=== PATIENT | female | born 1970 | race African-American/Black ===

== ENCOUNTER 2023-08-01 10:03 | Outpatient (OUT) | payer MEDICAID, SELFPAY ==
--- NOTE | 2023-08-01 10:13 | ECG_ITS ---
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
--- NOTE | 2023-08-01 10:59 | P.GSHP_ITS ---
History of Present Illness History of Present Illness Chief complaint: urethral stricture Narrative: Patient presents for preadmission testing. The patient reports a long history of urethral stricture with several dilations in the past. The patient states she had one procedure done without anesthesia and it was extremely painful and she would like anesthesia for this upcoming procedure. After questioning, the patient admits to a history of hypertension, she took herself off of her blood pressure medication approximately one year ago and currently does not have a primary care provider. The patient states she has nocturia but no other urinary complaints. Review of Systems ROS Narrative REVIEW OF SYSTEMS: Negative except as stated in HPI, ten or more systems reviewed. Constitutional: No fever , chills, weakness ENT: No sore throat or epistaxis Cardiovascular: No edema, chest pain, palpitations, or activity intolerance Respiratory: No shortness of breath, cough, or wheezing Musculoskeletal: No joint pain or swelling Gastrointestinal: No abdominal pain, constipation, diarrhea, or vomiting Genitourinary: No dysuria or hematuria Neurological: No numbness, tingling, weakness, or headache Psychiatric: No mood changes PFSH PFSH Medical History (Updated 08/01/23 @ 10:37 by Audrey James NP) Hypertension ?I10 - Essential (primary) hypertension (ICD-10) Urethral stricture due to and not concurrent with procedure Surgical History (Updated 08/01/23 @ 10:37 by Audrey James NP) History of section ?Z98.891 - History of uterine scar from previous surgery (ICD-10) History of cholecystectomy ?Z90.49 - Acquired absence of other specified parts of digestive tract (ICD- 10) History of hysterectomy ?Z90.710 - Acquired absence of both cervix and uterus (ICD-10) History of tubal ligation ?Z98.51 - Tubal ligation status (ICD-10) S/P cystourethroscopy with dilation of urethral stricture ?Z98.890 - Other specified postprocedural states (ICD-10) Family History (Updated 08/01/23 @ 10:37 by Audrey James NP) Other Family history of gastric cancer Family history of hypertension Family history of lung cancer Social History (Updated 08/01/23 @ 10:28 by Audrey James NP) Within the past year, how often did you have a drink containing alcohol: monthly or less Smoking status: Never smoker Highest level of school completed/degree received: high school graduate Meds Home Medications and Allergies Allergies Allergy/AdvReac Type Severity Reaction Status Date / Time No Known Drug Allergies Allergy Verified 08/01/23 10:25 Exam Narrative Exam Narrative: Constitutional: Awake, alert, comfortable, well-appearing, nontoxic, interactive, vital signs as charted Head: Normocephalic, atraumatic Neck: Supple, normal appearance, normal range of motion, no meningeal signs, no lymphadenopathy Respiratory: No respiratory distress, breath sounds clear Cardiovascular: Regular rate and rhythm, strong and regular heart tones Abdomen: Nontender, normal bowel sounds, soft, no CVA tenderness Musculoskeletal: Normal gait, no swelling or edema Skin: No rashes or induration, no lesions, only visible skin inspected Neuro: No neurological deficits, normal sensation Psychiatric: Oriented ?3, normal affect Assessment and Plan Assessment and Plan (1) Urethral stricture due to and not concurrent with procedure: (2) Hypertension: Plan At this time the patient is scheduled for a cystoscopy/urethral dilation with Dr. Vu on 08/10/2023. The patient has a severely elevated blood pressure here today in our office, her EKG is within normal limits, and she is not experiencing any symptoms or complaints. She states I feel fine. I stressed the importance of blood pressure control with the patient. I advised that she should call her insurance company to find a primary care provider as soon as possible. I advised her that she must start taking blood pressure medication and have medical clearance prior to her procedure. The patient verbalized understanding. This was also discussed with Katherine at Dr. Vu office.
[2023-08-01 11:01] LABS: Basophils Percent Auto 0.2 % (0.2-2.0); Eosinophils Percent Auto 0.4 % (0.9-7.0); Hematocrit 38.7 % (36.0-48.0); Hemoglobin 12.9 g/dL (12.0-16.0); Immature Granulocytes Abs Auto 0.01 10^3/uL (0.00-0.03); Immature Granulocytes Pct Auto 0.2 % (0.0-0.5); Lymphocytes Absolute Auto 1.5 10^3/uL (1.2-3.8); Mean Corpuscular HGB Conc 33.3 g/dL (29.9-35.2); Mean Corpuscular Hemoglobin 31.1 pg (26.7-34.0); Mean Corpuscular Volume 93.3 fL (81.0-99.0); Monocytes Absolute Auto 0.2 10^3/uL (0.3-0.8); Monocytes Percent Auto 5.3 % (1.7-12.0); Neutrophils Absolute Auto 2.7 10^3/uL (1.4-6.5); Neutrophils Percent Auto 60.9 % (43.0-75.0); Platelet Count 199 10^3/uL (150-450); Red Blood Count 4.15 10^6/uL (4.20-5.40); Red Cell Distribution Width 13.2 % (11.0-15.0); White Blood Count 4.5 10^3/uL (4.0-11.0)
[2023-08-01 11:13] LABS: Anion Gap 11.4; Carbon Dioxide 32.9 mmol/L (21.0-32.0); Chloride 102 mmol/L (98-107); Estimated GFR (African America 57 (>=60); Estimated GFR (Non-African Ame 47 (>=60); Glucose 79 mg/dL (74-106); Potassium 3.3 mmol/L (3.5-5.1); Sodium 143 mmol/L (136-145)
== END 2023-08-01 10:04 | disposition home or self-care (01) ==
LOC: PST 10:06
PROVIDERS: PCP Urology; Visit Provider Urology
DX: Z01.812 Encounter for preprocedural laboratory examination (principal)
CPT/HCPCS: 80048; 85025; 93005; G0463

== ENCOUNTER 2023-08-10 07:26 | Day surgery (SDC) | payer MEDICAID, SELFPAY ==
[2023-08-01 10:40] VITALS: BP 184/110; PULSE 86; RESP 16; TEMP 36.3; O2SAT 98; BMI 27.0
[2023-08-10 08:08] VITALS: BP 165/109; PULSE 107; RESP 20; TEMP 36.1; O2SAT 100; BMI 26.9
[2023-08-10] MEDS: LACTATED RINGER'S SOLUTION 1,000 ML 50 ML IV (08:17)
[2023-08-10] MEDS: CEFAZOLIN SODIUM/DEXTROSE,ISO 1 GM/50 ML IV.SOLN IV (08:18)
--- NOTE | 2023-08-10 09:09 | PM.URSON ---
Urology Surgery Operative Note Operative Note Procedure Date: 08/10/23 Time Out Performed: yes Pre-op Diagnosis: urethral stenosis and atrophic vaginitis Post-op Diagnosis: same as pre-op Procedures performed: #1. Urethral dilation with [place] sounds from 20 Burmese to 32 Burmese. #2. Cystoscopy. Anesthesia: MAC and local Primary Surgeon: Derrick Vu Complications: none Estimated blood loss (mL): 5 Findings: mild atrophic vaginitis. Urethral stenosis. Specimens: none Indications for Procedures: this lady had rather severe urethral stenosis and severe atrophic vaginitis for which she was dilated and started on estrogen cream. This was done back in February 2022. She then had a subsequent dilation in November 2022. She now presents for cystoscopy and urethral dilation under Mac. She has signed an informed consent for these procedures after risks were explained. Detailed description of Procedure: The patient was brought to the operating room and placed on the operating room table in the supine position. SCDs were placed on the lower extremities and turned on and functioning during the entire case. Timeout was done by all parties in the room. We all agreed upon the patient's identification and the planned procedures for this patient. Mac anesthesia was then administered. The patient was then repositioned into the modified dorsal lithotomy position. All pressure points were satisfactorily padded. Genitalia were sterilely prepped and draped in usual fashion. I started by dilating her urethra with [place] sounds from 20 Burmese up to 32 Burmese. The urethra bled a little bit. Moderate atrophic vaginitis was noted. I then passed a 22 Burmese Olympus cystoscope per urethra and into the bladder. Panendoscopy in the bladder showed no evidence of any tumors stones or mucosal lesions. The urethra. Unremarkable endoscopically. The bladder was drained of its contents and the scope was then removed. She was then transferred to a [facility] bed and wheeled to PACU in stable condition.
[2023-08-10 09:13] VITALS: BP 116/80; PULSE 92; RESP 16; O2SAT 99
[2023-08-10 09:30] VITALS: BP 121/90; PULSE 82; RESP 16
[2023-08-10 09:49] VITALS: BP 167/104; PULSE 80; RESP 16; O2SAT 100
== END 2023-08-10 09:49 | disposition home or self-care (01) ==
PROVIDERS: PCP Nurse Practitioner; Visit Provider Urology
PROC: (CPT 910; principal; 2023-08-10 08:30)
DX: N35.92 Unspecified urethral stricture, female (principal); F41.9 Anxiety disorder, unspecified; I10 Essential (primary) hypertension; Z90.49 Acquired absence of other specified parts of digestive tract; Z90.710 Acquired absence of both cervix and uterus; Z98.51 Tubal ligation status; R35.1 Nocturia; N95.2 Postmenopausal atrophic vaginitis
CPT/HCPCS: 52281; 36415; J2704

== ENCOUNTER 2024-01-15 14:14 | Outpatient (OUT) | payer MEDICAID, SELFPAY ==
--- NOTE | 2024-01-15 14:19 | XR_ITS ---
The [address] [address] Patient Name: BALWINDER HOWARD MRN: [id number] date: 1970 Sex: F Assigned Patient Location: [facility] Current Patient Location: [facility] Accession/Order Number: [id number] Exam Date: 01/15/2024 14:25 Report Date: 01/15/2024 15:49 At the request of: HARRIET MANCERA Procedure: XR lumbar spine min 4V EXAMINATION: XR lumbar spine min 4V HISTORY: low back pain with left sciatica M54.42 COMPARISON: No relevant comparison available. FINDINGS: BONES: Normal alignment with no acute fracture or spondylolisthesis. Mild spondylosis and mild to moderate facet osteoarthropathy significant at L5-S1 DISC SPACES: Normal. No significant disc height narrowing, subluxation, or endplate abnormality. PARASPINOUS: Negative. No paraspinous abnormality is seen. OTHER: Negative. XR/XR lumbar spine min 4V IMPRESSION: Diffuse degenerative changes most significant at L5-S1 Electronically authenticated by: RUFUS ZHAO Date: 01/15/2024 15:49
== END 2024-01-15 14:15 | disposition home or self-care (01) ==
PROVIDERS: PCP Nurse Practitioner; Visit Provider Nurse Practitioner
DX: M54.42 Lumbago with sciatica, left side (principal); M51.36 Other intervertebral disc degeneration, lumbar region
CPT/HCPCS: 72110

== ENCOUNTER 2024-06-28 14:39 | Emergency (ER) | payer MEDICAID, SELFPAY ==
--- OUTSIDE RECORDS SUMMARY | 2024-06-28 14:44 | XMS_ITS | CCD ---
Author Organization [facility] Care Team Providers Care Paraffiner Name Role Phone Mickey BARRIGA Primary Care Physician PAVEL, DR RUFUS Garay Consulting Unavailable MISC, DR LANE Primary Care Unavailable ESTELA, DR AREVALO Attending Unavailable ESTELA, DR AREVALO Admitting Unavailable ESTELA, DR AREVALO Consulting Unavailable REQUEST, DR HERNANDEZ LISTED Primary Care Unavaila raman VU, DR LAY Consulting Unavailable JANIYA, DR LAY Attending Unavailable JANIYA, DR LAY Admitting Unavailable PAVEL, DR RUFUS Garay Consulting Unavailable HAY, DR CORTES Consulting Unavailable HAY, DR CORTES Attending Unavailable HAY, DR CORTES Admitting Unavailable MISC, DR LANE Primary Care Unavailable JANIYA, DR LAY Consulting Unavailable REQUEST, DR HERNANDEZ LISTED Primary Care Unavaila ble JANIYA, DR LAY Attending Unavailable JANIYA, DR LAY Admitting Unavailable ESTELA, DR AREVALO Consulting Unavailable REQUEST, DR HERNANDEZ LISTED Primary Care Unavaila ble ESTELA, DR AREVALO Attending Unavailable ESTELA, DR AREVALO Admitting Unavailable ESTELA, DR AREVALO Consulting Unavailable REQUEST, DR HERNANDEZ LISTED Primary Care Unavaila ble ESTELA, DR AREVALO Attending Unavailable ESTELA, DR AREVALO Admitting Unavailable JANIYA, DR LAY Consulting Unavailable REQUEST, NONE LISTED Primary Care Unavaila ble JANIYA, DR LAY Attending Unavailable JANIYA, DR LAY Admitting Unavailable CORRINE, LOUIS Consulting Unavailable JANIYA, DR LAY Consulting Unavailable REQUEST, DR HERNANDEZ LISTED Referring Unavaila ble MISC, DR LANE Primary Care Unavailable ESTELA, DR AREVALO Attending Unavailable ESTELA, DR AREVALO Admitting Unavailable ESTELA, DR AREVALO Consulting Unavailable JOHN AVINA Consulting Unavailable NAKUL MORILLO Consulting Unavailable MISC, DR LANE Primary Care Unavailable ESTELA, DR AREVALO Attending Unavailable ESTELA, DR AREVALO Admitting Unavailable MISC, DR LANE Primary Care Unavailable JANIYA, DR LAY Attending Unavailable JANIYA, DR LAY Admitting Unavailable Anamaria Pak Primary Care Physician Anamaria Pak Attending Unavailable Mellisa, Anamaria Jung Attending Unavailable Mellisa, Anamaria Jung Attending Unavailable Mellisa, Anamaria Jung Attending Unavailable Mellisa, Anamaria Jung Attending Unavailable Mellisa, Anamaria Jung Attending Unavailable Derrick VU Attending Unavailable Adrian Fuentes Attending Unavaila ble NONE, XXXX Referring Unavailable NONE, XXXX Referring Unavailable Adrian Fuentes Attending Unavaila ble Celestino Paulino Attending Unavailable NONE, XXXX Referring Unavailable Adrian Fuentes Admitting Unavaila Brenton Stevens Consulting Unavailable Adrian Fuentes Referring Unavaila Adrian Santillan Attending Unavaila Brenton Stevens Consulting Unavailable Brenton WILKS Consulting Unavailable Derrick VU Attending Unavailable Allergies Allergy Classification Reported Allergen(s) Allergy Type Date of Onset Reaction(s) Facility (1 source) No Known Medication Allergies; Translations: [No Known Medication Allergies] Propensity to adverse reactions (disorder) [facility] Repository Medications Current Medications Medication Drug Class(es) Dates Sig (Normalized) Sig (Original) amLODIPine 10 mg oral tablet (4 sources) Dihydropyridine Calcium Channel Balbina Start: 09-14-2023 End: 09-08-2024 take 1 tablet by mouth once daily amLODIPine 10 mg Tab 10 mg = 1 tab(s), Oral, Daily, X 90 day(s), # 90 tab(s), Refills(s) 3, Pharmacy: [facility] #[id number], 160, cm, 09/14/23 10:53:00 EST, Height/Length Dosing, 70.3, kg, 09/14/23 10:53:00 EST, Weight Dosing Start Date: 09/14/23 Stop Date: 09/08/24 Status: Ordered Start: 08-03-2023 take 1 tablet by terence th once daily amLODIPine 5 mg Tab 5 mg = 1 tab(s), Oral, Daily, # 30 tab(s), Refills(s) 1, Pharmacy: [facility] #[id number], 160, cm, 08/03/23 14:08:00 EST, Height/Length Dosing, 70, kg, 08/03/23 14:08:00 EST, Weight Dosing Start Date: 08/03/23 Status: Ordered bisoprolol fumarate 10 mg / hydroCHLOROthiazide 6.25 mg oral tablet (3 sources) Thiazide Diuretic, beta-Adrenergic Balbina Start: 09-14-2023 End: 09-08-2024 take 1 tablet by mouth once daily bisoprolol-hydrochlorothiazide 10 mg-6.25 mg Tab 1 tab(s), Oral, Daily for 90 day(s), 90 tab(s), Refill(s) 3, [facility] #[id number], 160, cm, 09/14/23 10:53:00 EST, Height/Length Dosing, 70.3, kg, 09/14/23 10:53:00 EST, Weight Dosing Start Date: 09/14/23 Stop Date: 09/08/24 Status: Ordered cyclobenzaprine hydrochloride 10 mg oral tablet (1 source) Muscle Relaxant Start: 01-16-2024 take 1 tablet by mouth at bedtime as needed for muscle spasms cyclobenzaprine 10 mg Tab 10 mg = 1 tab(s), Oral, Bedtime, PRN for spasm, # 30 tab(s), Refills(s) 0, Pharmacy: [facility] #[id number], 160, cm, 01/15/24 15:02:00 EDT, Height/Length Dosing, 72.5, kg, 01/15/24 15:02:00 EDT, Weight Dosing Start Date: 01/16/24 Status: Ordered estradiol 0.1 mg/ml vaginal cream (6 sources) Estrogen Start: 10-04-2023 Estrace 0.1 mg/g Cream 1 gm, Vaginal, MonFri, 42.5 gm, Refill(s) 6, At bedtime, insert 1gm vaginally then apply excess around urethra 2x/week, [facility] #[id number], 160, cm, 09/14/23 10:53:00 EST, Height/Length Dosing, 70.3, kg, 09/14/23 10:53:00 EST, Weight Dosing Start Date: 10/04/23 Status: Ordered Start: 09-05-2022 Estrace 0.1 mg /g Cream 1 gm, Vaginal, MonFri, 42.5 gm, Refill(s) 3, At bedtime, insert 1gm vaginally then apply excess around urethra 2x/week, [facility] #[id number], 160, cm, 09/05/22 11:23:00 EST, Height/Length Dosing, 67.5, kg, 09/05/22 11:23:00 EST, Weight Dosing Start Date: 09/05/22 Status: Ordered meloxicam 15 mg oral tablet (1 source) Nonsteroidal Anti-inflammatory Drug Start: 01-15-2024 take 1 tablet by mouth once daily meloxicam 15 mg Tab 15 mg = 1 tab(s), Oral, Daily, # 30 tab(s), Refills(s) 0, Pharmacy: [facility] #[id number], 160, cm, 01/15/24 15:02:00 EDT, Height/Length Dosing, 72.5, kg, 01/15/24 15:02:00 EDT, Weight Dosing Start Date: 01/15/24 Status: Ordered Metoprolol (2 sources) beta-Adrenergic Balbina Start: 09-05-2022 metoprolol Refills(s) 0 Start Date: 09/05/22 Status: Ordered Completed/Discontinued Medications Medication Drug Class(es) Dates Sig (Normalized) Sig (Original) automatic blood pressure monitor (4 sources) Start: 08-03-2023 automatic blood pressure monitor automatic blood pressure monitor, See Instructions, 1 EA, 0, check BP 1-2 hours after taking medication, [facility] #[id number], Supply, 160, cm, 08/03/23 14:08:00 EST, Height/Length Dosing, 70, kg, 08/03/23 14:08:00 EST, Weight Dosing Start Date: 08/03/23 Status: Ordered ciprofloxacin 500 mg oral tablet (1 source) Quinolone Antimicrobial Start: 09-05-2022 Cipro 500 mg Tab 500 mg = 1 tab(s), Oral, As Directed, Patient to take 1 tab the day before procedure and the 2nd tab the day of procedure once completed, # 2 tab(s), Refills(s) 0, Pharmacy: [facility] #[id number], 160, cm, 09/05/22 11:23:00 EST, Height/Length Dosing, 67.5,... Start Date: 09/05/22 Status: Ordered Problems Active Problems Problem Classification Problem Date Documented Date Episodic/Chronic Anxiety disorders (7 sources) Anxiety; Translations: [Anxiety disorder, unspecified] Onset: 03-21-2022 09-05-2022 Chronic Calculus of urinary tract (4 sources) Calculus of kidney; Translations: [CALCULUS OF KIDNEY] Onset: 09-03-2022 Episodic Cardiac dysrhythmias (4 sources) Palpitations; Translations: [Palpitations] Onset: 03-01-2024 08-31-2023 Episodic Essential hypertension (11 sources) Hypertensive disorder; Translations: [Essential (primary) hypertension] Onset: 09-15-2022 09-05-2022 Chronic Inflammatory diseases of female pelvic organs (1 source) Chronic salpingitis; Translations: [CHRONIC SALPINGITIS] Onset: 03-21-2022 Chronic Menopausal disorders (2 sources) Postmenopausal atrophic vaginitis; Translations: [Menopausal and female climacteric states] Onset: 03-21-2022 Chronic Other aftercare (1 source) Other custodial (current) drug therapy; Translations: [OTH SENIOR LIVING CURRENT DRUG THERAPY] Onset: 09-15-2022 Episodic Other diseases of bladder and urethra (2 sources) Male urethral stricture; Translations: [Unspecified urethral stricture, male, unspecified site] Onset: 09-05-2022 Episodic Other diseases of bladder and urethra (6 sources) Urethral stricture 09-05-2022 Episodic Other diseases of bladder and urethra (5 sources) Unspecified urethral stricture, female; Translations: [UNSP URETHRAL STRICTURE FEMALE] Onset: 09-08-2022 Episodic Other nutritional; endocrine; and metabolic disorders (2 sources) Overweight in adulthood with body mass index of 25 or more but less than 30 12-21-2023 Episodic Residual codes; unclassified (1 source) Acquired absence of other specified parts of digestive tract; Translations: [ACQ ABSENCE OTH PART DIGESTV TRACT] Onset: 09-15-2022 Episodic Residual codes; unclassified (1 source) Acquired absence of both cervix and uterus; Translations: [ACQUIRED ABSENCE BOTH CERVIX AND UTERUS] Onset: 09-15-2022 Episodic Spondylosis; intervertebral disc disorders; other back problems (3 sources) Lumbago with sciatica 09-14-2023 Episodic Unclassified (1 source) CONTACT W/AND (SUSP) EXPOS COVID-19; Translations: [CONTACT W/AND (SUSP) EXPOS COVID-19] Onset: 09-11-2022 Viral infection (1 source) COVID-19; Translations: [COVID-19] Onset: 09-28-2021 Past or Other Problems Problem Classification Problem Date Documented Da te Episodic/Chronic Abdominal pain (5 sources) Pelvic and perineal pain; Translations: [PELVIC AND PERINEAL PAIN] Onset: 02-17-2022 Episodic Fever of unknown origin (3 sources) Fever, unspecified; Translations: [FEVER UNSPECIFIED] Onset: 09-26-2021 Episodic Other gastrointestinal disorders (1 source) Peritoneal adhesions (postprocedural) (postinfection); Translations: [PERITONEAL ADHES POSTPROC POSTINF] Onset: 03-21-2022 Episodic Ovarian cyst (1 source) Unspecified ovarian cyst, left side; Translations: [UNSPECIFIED OVARIAN CYST LEFT SIDE] Onset: 12-30-2021 Episodic Results Test Name Value Interpretation Reference Range [facility] aleshia Physician Orderon 03-04-2024 Physician Order [id number]# 1.00TIFF Normal [facility] Consent for Treatmenton Consent for Treatment [id number] .00TIFF Normal [facility] Heart and Vascular Office/Cl inic Noteon 03-01-2024 Heart and Vascular Office/Clinic Note Chief Complaint 2 month f/u palpitations History of Present Illness The patient is a 53-year-old female with past medical history of hypertension, who presents for a follow-up appointment. She was seen by Dr. Fuentes due to heart palpitations. Her prior Holter monitor showed no evidence of cardiac arrhythmias. The plan was to obtain a 14 days event monitor, however, the patient has not had it. Her prior cardiac workup also included a transthoracic echocardiogram which showed no evidence of significant structural heart disease, mild pulmonary hypertension, normal LVEF. She did have an exercise stress test, which showed no evidence of ischemia to the extent of the physical exertion, however was submaximal She continues to be bothered by occasional palpitations, perhaps once a week, during the nighttime. Reports no chest pain or shortness of breath, dizziness or lightheadedness. Review of Systems ROS - Provider Constitutional: no fever, no chills, no sweats, no weakness Respiratory: no shortness of breath, no cough Cardiovascular: no chest pain positive for palpitations Neuro: no dizziness. no loss of consciousness Physical Exam Vitals & Measurements HR: 72(Peripheral) BP: 136/80 HT: 63 in HT: 160 cm WT: 71.5 kg WT: 157.3 lb BMI: 27.93 General: alert, no acute distress Neck: Supple, noJVD nocarotid bruit Cardiovascular: regular rate and rhythm, no murmur normal peripheral perfusion Respiratory: Lungs CTAB, respirations non labored Extremities: no edema left lower extremity. no edema right lower extremity Neurological: oriented x 4, LOC appropriate for age, speech normal Skin: Warm, dry, intact- no rash or concerning lesions Assessment/Plan 1. Heart palpitations (R00.2: Palpitations) I am going to obtain a 14 days event recorder, as was planned before. Follow-up No qualifying data available As needed Problem List/Past Medical History Ongoing Adult BMI 27.0-27.9 kg/sq m Adult BMI 28.0-28.9 kg/sq m Anxiety Heart palpitations Hypertension Low back pain with left-sided sciatica Urethral meatal stenosis Historical Hypertension Procedure/Surgical History Cystourethroscopy with dilation of urethral stricture (02/28/2022), Laparoscopic oophorectomy (02/28/2022), delivery, Cholecystectomy, Hysterectomy, Tubal ligation. Medications amLODIPine 10 mg Tab, 10 mg= 1 tab(s), Oral, Daily, 3 refills automatic blood pressure monitor, See Instructions bisoprolol-hydrochlor othiazide 10 mg-6.25 mg Tab, 1 tab(s), Oral, Daily, 3 refills cyclobenzaprine 10 mg Tab, 10 mg= 1 tab(s), Oral, Bedtime, PRN Estrace 0.1 mg/g Cream, 1 gm, Vaginal, MonFri, 6 refills meloxicam 15 mg Tab, 15 mg= 1 tab(s), Oral, Daily Allergies No Known Medication Allergies Social History Tobacco Never (less than 100 in lifetime) Tobacco Use:. Never Smokeless Tobacco Use:. Household tobacco concerns: No., 03/01/2024 Family History Hypertension: Mother. Normal [facility] Comment on above: Result Comment: Elec tronically Signed By: Lora CASTELLANO, Celestino Smith\.br\Date and Time Signed: 03/01/24 13:14 EDT Ambulatory Visit Summaryon 0 01-15-2024 Ambulatory Visit Summary JENNY FRANCO :1970 Visit Date:01/15/2024 Ambulatory Visit Instructions Your Diagnosis Low back pain with left-sided sciatica Your Care Team Attending Physician - Anamaria Kelley Primary Care Physician - Anamaria Kelley This Is Your Medications List [facility] Prescription (automatic blood pressure monitor) amlodipine (amLODIPine 10 mg Tab) bisoprolol-hydrochlor othiazide (bisoprolol-hydrochlo rothiazide 10 mg-6.25 mg Tab) estradiol topical (Estrace 0.1 mg/g Cream) meloxicam (meloxicam 15 mg Tab) methylPREDNISolone (Medrol 4 mg Tab) Procedures Performed Cystourethroscopy with dilation of urethral stricture (02/28/2022), Laparoscopic oophorectomy (02/28/2022), delivery, Cholecystectomy, Hysterectomy, Tubal ligation. Discharge Vitals Heart Rate (Peripheral) 60 Respiratory Rate 18 Blood Pressure 132/80 Height 160.0 cm Height 63 in Weight 72.5 kg Weight 159.5 lb BMI 28.32 What to do next Scheduled Follow-Up Appointments 2023 3:00 PM EDT With: Where: [facility] Monday 1:00 PM EDT With: Celestino Paulino MD Where: [facility] [place] Medications What How Much When Why Instructions New meloxicam (meloxicam 15 mg Tab) 1 Tablets By Mouth Every day Low back pain with left-sided sciatica Pickup at [facility] #[id number] New methylPREDNISolone (Medrol 4 mg Tab) 1 Packets By Mouth As Directed Low back pain with left-sided sciatica Duration: 6 Days as directed on package labeling Pickup at [facility] #[id number] Unchanged amlodipine (amLODIPine 10 mg Tab) 1 Tablets By Mouth Every day Hypertension Heart palpitations BMI 27.0-27.9,adult Non-smoker Duration: 90 Days Unchanged bisoprolol-hydrochlor othiazide (bisoprolol-hydrochlo rothiazide 10 mg-6.25 mg Tab) 1 Tablets By Mouth Every day Hypertension Heart palpitations BMI 27.0-27.9,adult Non-smoker Duration: 90 Days Unchanged estradiol topical (Estrace 0.1 mg/ g Cream) 1 Gram Vaginal Monday & Monday At bedtime, insert 1gm vaginally then apply excess around urethra 2x/ week Unchanged Misc Prescription (automatic blood pressure monitor) See instructions BMI 27.0-27.9,adult Non-smoker check BP 1-2 hours after taking medication Pharmacy Information [facility] #[id number]: [address], [place] [id number] [phone] Allergies No Known Medication Allergies Problems Ongoing - Any problem that you are currently receiving treatment for. Adult BMI 27.0-27.9 kg/sq m Anxiety Heart palpitations Hypertension Low back pain with left-sided sciatica Urethral meatal stenosis Historical - Any problem that you are no longer receiving treatment for. Hypertension Patient Survey You may receive a survey via text or e-mail asking about your office visit. Please share your experience with us by completing your survey. We appreciate your feedback and thank you for choosing us for your care. Normal [facility] Family Medicine Office/Clini c Noteon 01-15-2024 Family Medicine Office/Clinic Note HPI Staff Jenny is a 53 year old female presenting for 3 week follow up NANCY 12/21/23 low back pain with left side sciatica-started meloxicam, medrol dose pack, x-ray was ordered Pt states she never picked up any meloxicam or Medrol dose back states pharmacy never contacted her. Pt had x-ray done this afternoon. History of Present Illness pt presents today for follow up on back pain. just had x ray done today Review of Systems PHQ Score Initial Depression Screen Score: 0 SCORE Physical Exam Vitals & Measurements HR: 60(Peripheral) RR: 18 BP: 132/80 SpO2: 98% HT: 63 in HT: 160.0 cm WT: 72.5 kg WT: 159.5 lb BMI: 28.32 General: alert, no acute distress ENMT: oral mucosa moist, no pharyngeal erythema or exudate Cardiovascular: regular rate and rhythm, normal peripheral perfusion Respiratory: Lungs CTA, respirations non labored Extremities: no deformity, no trauma Neurological: oriented x 4, LOC appropriate for age, CN II-XII intact, motor strength equal & normal bilaterally, speech normal walking with limp due to pain, limited ROM Assessment/Plan 1. Low back pain with left-sided sciatica (M54.42: Lumbago with sciatica, left side) pt will pick meds up today. x ray done at [facility] today. will call her with those results. Will order MRI if necessary for further evaluation. may also consider pain management RTC as needed Ordered: cyclobenzaprine, 7.5 mg = 1 tab(s), Oral, Bedtime, PRN for spasm, # 30 tab(s), Refills(s) 0, Pharmacy: [facility] #[id number], 160, cm, 01/15/24 15:02:00 EDT, Height/Length Dosing, 72.5, kg, 01/15/24 15:02:00 EDT, Weight Dosing meloxicam, 15 mg = 1 tab(s), Oral, Daily, # 30 tab(s), Refills(s) 0, Pharmacy: [facility] #[id number], 160, cm, 01/15/24 15:02:00 EDT, Height/Length Dosing, 72.5, kg, 01/15/24 15:02:00 EDT, Weight Dosing methylPREDNISolone, = 1 packet(s), Oral, As Directed, as directed on package labeling, X 6 day(s), # 21 tab(s), Refills(s) 0, Pharmacy: [facility] #[id number], 160, cm, 01/15/24 15:02:00 EDT, Height/Length Dosing, 72.5, kg, 01/15/24 15:02:00 EDT, Weight Dosing 2. Adult BMI 28.0-28.9 kg/sq m (Z68.28: Body mass index [BMI] 28.0-28.9, adult) BMI education complete Follow-up No qualifying data available Problem List/Past Medical History Ongoing Adult BMI 27.0-27.9 kg/sq m Adult BMI 28.0-28.9 kg/sq m Anxiety Heart palpitations Hypertension Low back pain with left-sided sciatica Urethral meatal stenosis Historical Hypertension Procedure/Surgical History Cystourethroscopy with dilation of urethral stricture (02/28/2022), Laparoscopic oophorectomy (02/28/2022), delivery, Cholecystectomy, Hysterectomy, Tubal ligation. Medications amLODIPine 10 mg Tab, 10 mg= 1 tab(s), Oral, Daily, 3 refills automatic blood pressure monitor, See Instructions bisoprolol-hydrochlor othiazide 10 mg-6.25 mg Tab, 1 tab(s), Oral, Daily, 3 refills cyclobenzaprine 7.5 mg oral tablet, 7.5 mg= 1 tab(s), Oral, Bedtime, PRN Estrace 0.1 mg/g Cream, 1 gm, Vaginal, MonFri, 6 refills Medrol 4 mg Tab, 1 packet(s), Oral, As Directed meloxicam 15 mg Tab, 15 mg= 1 tab(s), Oral, Daily Allergies No Known Medication Allergies Social History Tobacco Never (less than 100 in lifetime) Tobacco Use:. Never Smokeless Tobacco Use:. Household tobacco concerns: No., 01/15/2024 Family History Hypertension: Mother. Normal [facility] Comment on above: Result Comment: Elec tronically Signed By: Anamaria Kelley\.br\Date and Time Signed: 01/15/24 15:24 EDT Ambulatory Visit Summaryon 0 12-21-2023 Ambulatory Visit Summary JENNY FRANCO :1970 Visit Date:12/21/2023 Ambulatory Visit Instructions Your Diagnosis Low back pain with left-sided sciatica Your Care Team Attending Physician - Anamaria Kelley Primary Care Physician - Anamaria Kelley This Is Your Medications List [facility] Prescription (automatic blood pressure monitor) amlodipine (amLODIPine 10 mg Tab) bisoprolol-hydrochlor othiazide (bisoprolol-hydrochlo rothiazide 10 mg-6.25 mg Tab) estradiol topical (Estrace 0.1 mg/g Cream) Procedures Performed Cystourethroscopy with dilation of urethral stricture (02/28/2022), Laparoscopic oophorectomy (02/28/2022), delivery, Cholecystectomy, Hysterectomy, Tubal ligation. Discharge Vitals Heart Rate (Peripheral) 73 Blood Pressure 150/80 Height 160 cm Height 63 in Weight 70.8 kg Weight 155.76 lb BMI 27.66 What to do next Scheduled Follow-Up Appointments Monday 10:15 AM EDT With: Alfredo CASTELLANO, Adrian D. Where: [facility] [place] 2023 10:00 AM EDT With: Anamaria Kelley Where: [facility] Family Medicine Normal [facility] Family Medicine Office/Clini c Noteon 12-21-2023 Family Medicine Office/Clinic Note Chief Complaint follow up blood pressure HPI Staff Jenny is a 53 year old female presenting for 3 month follow up HTN Patient is here for follow up on hypertension. NANCY ordered 14 day halter monitor palpitations How often are you checking your blood pressure? Couple times a week What are your average readings? varies missed the holter monitor appointment Patient needs another order for a back xray as she lost her order. History of Present Illness pt presents today for BP follow up and for low back pain Review of Systems PHQ Score Initial Depression Screen Score: 0 SCORE Physical Exam Vitals & Measurements HR: 73(Peripheral) BP: 150/80 SpO2: 97% HT: 63 in HT: 160 cm WT: 70.8 kg WT: 155.76 lb BMI: 27.66 General: alert, no acute distress ENMT: oral mucosa moist, no pharyngeal erythema or exudate Cardiovascular: regular rate and rhythm, normal peripheral perfusion Respiratory: Lungs CTA, respirations non labored Extremities: no deformity, no trauma Neurological: oriented x 4, LOC appropriate for age, CN II-XII intact, motor strength equal & normal bilaterally, speech normal Assessment/Plan 1. Low back pain with left-sided sciatica (M54.42: Lumbago with sciatica, left side) pt presents today with low back pain with left sided sciatica. she had an order for x ray but lost it. another order was provided. and faxed to [facility]. will start meloxicam and medrol dose pack. pt will continue exercises at home. Several years ago she went to PT for the same pain so she still has her exercise sheets to use. RTC 3 weeks. will order MRI at that time. 2. Hypertension (I10: Essential (primary) hypertension) pt was unable to keep appointment with cardiology. encouraged her to make follow up appointment 3. Adult BMI 27.0-27.9 kg/sq m (Z68.27: Body mass index [BMI] 27.0-27.9, adult) bmi education complete Follow-up No qualifying data available Problem List/Past Medical History Ongoing Adult BMI 27.0-27.9 kg/sq m Anxiety Heart palpitations Hypertension Low back pain with left-sided sciatica Urethral meatal stenosis Historical Hypertension Procedure/Surgical History Cystourethroscopy with dilation of urethral stricture (02/28/2022), Laparoscopic oophorectomy (02/28/2022), delivery, Cholecystectomy, Hysterectomy, Tubal ligation. Medications amLODIPine 10 mg Tab, 10 mg= 1 tab(s), Oral, Daily, 3 refills automatic blood pressure monitor, See Instructions bisoprolol-hydrochlor othiazide 10 mg-6.25 mg Tab, 1 tab(s), Oral, Daily, 3 refills Estrace 0.1 mg/g Cream, 1 gm, Vaginal, MonFri, 6 refills Allergies No Known Medication Allergies Social History Tobacco Never (less than 100 in lifetime) Tobacco Use:. Never Smokeless Tobacco Use:. Household tobacco concerns: No., 12/21/2023 Family History Hypertension: Mother. [facility] Comment on above: Result Comment: Elec tronically Signed By: Anamaria Kelley\.br\Date and Time Signed: 12/21/23 10:42 EDT Monitor Recordon 11-10-2023 Monitor Record [id number] .00TIFF [facility] Heart and Vascular Office/Cl inic Noteon 10-30-2023 Heart and Vascular Office/Clinic Note Chief Complaint here for test results History of Present Illness Jenny Franco is a 52-year-old male who presents today for a follow-up evaluation of chest discomfort. She is doing well. She explains that she did not have any symptoms when she had the Holter monitor on. However, as soon as she took it off, her symptoms returned. She continues to experience a heart flutter and thumps in her chest. She encountered a similar problem when her mother on 06/2020. She sought medical attention at [facility], although she cannot recall the doctor's name. During that visit, she was informed that one of her arteries was blocked. with a slight leakage. However, she was assured that it was not a cause for concern, so she did not return. She denies having a cardiac catheterization. Review of Systems Constitutional: no fever, no sweats, no weakness Skin: no rash, no lesions, no bruising/petechiae ENMT: no sore throat, no congestion, no hoarseness Respiratory: no shortness of breath, no cough, no orthopnea, no wheezing Cardiovascular: no chest pain, positive for palpitations, no edema Gastrointestinal: no nausea, no vomiting, no diarrhea, no GI bleeding Genitourinary: no anuria/oliguria no hematuria Musculoskeletal: no back pain, no trauma Neurologic: no headache, no dizziness, no numbness, no weakness Psychiatric: no sleeping problems, no irritability, no anxiety/depression. Heme/Lymph: no bleeding tendency, no bruising tendency Allergy/Immunologic: no recurrent infections, no impaired immunity Additional ROS info: Except as noted in the above Review of Systems and in the History of Present Illness all other systems have been reviewed and are negative or noncontributory. Physical Exam Vitals & Measurements HR: 82(Peripheral) BP: 140/88 HT: 63 in HT: 160 cm WT: 69 kg WT: 151.8 lb BMI: 26.95 General: alert, no acute distress Skin: warm, dry intact Head: atraumatic, normocephalic Neck: trachea midline, no JVD, no bruit Eye: normal conjunctiva, sclera clear ENMT: oral mucosa moist Cardiovascular: regular rate and rhythm, no murmur, normal peripheral perfusion Respiratory: lungs CTA, respirations non labored Chest wall: no deformity. Gastrointestinal: soft, non-distended, no tenderness, no guarding. Back: no tenderness, normal ROM, normal alignment. Extremities: no edema, no deformity, no trauma Neurological: oriented x 4, LOC appropriate for age, sensation equal & normal bilaterally, speech normal Psychiatric: cooperative, affect appropriate for age, normal judgement, normal psychiatric thoughts. Assessment/Plan 1. Palpitations A 52-year-old with a history of hypertension. She had a negative stress test and a normal echocardiogram. Despite experiencing mild chest discomfort, it appeared more consistent with palpitations rather than angina. Notably, she exhibited symptoms right after the Holter monitor, but during the Holter was unremarkable. We will schedule a 14-day event and have her follow up in a couple of months. Portions of this record may have been created with voice recognition artificial intelligence software, specifically Jag.ag, Dragon Express and or [employer]. Substitutions may have occurred due to the inherent limitations of voice recognition and artificial intelligence software. ATTESTATION: Documentation services were performed after the patient or guardian consented to allow [employer] to record this visit. PUJA patient care specialist and provider reviewed before signing. PUJA: Carl Boyd Ano-os/Pasted by: Tiara Ferrer Follow-up No qualifying data available Problem List/Past Medical History Ongoing Anxiety Heart palpitations Hypertension Low back pain with left-sided sciatica Urethral meatal stenosis Historical Hypertension Procedure/Surgical History Cystourethroscopy with dilation of urethral stricture (02/28/2022), Laparoscopic oophorectomy (02/28/2022), delivery, Cholecystectomy, Hysterectomy, Tubal ligation. Medications amLODIPine 10 mg Tab, 10 mg= 1 tab(s), Oral, Daily, 3 refills automatic blood pressure monitor, See Instructions bisoprolol-hydrochlor othiazide 10 mg-6.25 mg Tab, 1 tab(s), Oral, Daily, 3 refills Estrace 0.1 mg/g Cream, 1 gm, Vaginal, MonFri, 6 refills Allergies No Known Medication Allergies Social History Tobacco Never (less than 100 in lifetime) Tobacco Use:. Never Smokeless Tobacco Use:. Household tobacco concerns: No., 10/27/2023 Family History Hypertension: Mother. [facility] Comment on above: Result Comment: Elec tronically Signed By: Alfredo CASTELLANO, Adrian Peres\.br\Date and Time Signed: 10/30/23 09:40 EST\.br\Electronically Co-Signed By: Tiara Ferrer\.br\Date and Time Co-Signed: 10/27/23 12:27 EST Physician Consultation Noteo n 10-30-2023 Physician Consultation Note [id number]# 1.00TIFF [facility] Stress EKG Tracingson 2023 Stress EKG Tracings [id number]#1 .00TIFF [facility] Consent for Treatmenton 09-26 Consent for Treatment [id number]#1 .00TIFF [facility] Heart and Vascular Office/Cl inic Noteon 10-01-2023 Heart and Vascular Office/Clinic Note Chief Complaint here to establish care History of Present Illness Jenny Franco is a 52-year-old female who presents today for an evaluation of palpitations. The patient has been experiencing sudden intermittent palpitations. She remembers a specific incident where the palpitations lasted for a minute. During this episode, she took two tablets of baby aspirin and rested in bed. She also notes that her blood pressure tends to rise during these episodes, but she is unsure if there have been instances where her blood pressure remained low or stable. She has been keeping a log of her pulse rates. She occasionally feels a tightness or pain in her chest, primarily at night while sleeping, which often wakes her up. She confirms that there is no known history of cardiac issues in her family. She is open to undergoing diagnostic tests to further investigate her condition. Review of Systems Constitutional: no fever, no sweats, no weakness Skin: no rash, no lesions, no bruising/petechiae ENMT: no sore throat, no congestion, no hoarseness Respiratory: no shortness of breath, no cough, no orthopnea, no wheezing Cardiovascular: no chest pain, no palpitations, no edema Gastrointestinal: no nausea, no vomiting, no diarrhea, no GI bleeding Genitourinary: no anuria/oliguria no hematuria Musculoskeletal: no back pain, no trauma Neurologic: no headache, no dizziness, no numbness, no weakness Psychiatric: no sleeping problems, no irritability, no anxiety/depression. Heme/Lymph: no bleeding tendency, no bruising tendency Allergy/Immunologic: no recurrent infections, no impaired immunity Additional ROS info: Except as noted in the above Review of Systems and in the History of Present Illness all other systems have been reviewed and are negative or noncontributory Physical Exam Vitals & Measurements HR: 61(Peripheral) BP: 134/72 SpO2: 100% HT: 63 in HT: 160 cm WT: 70.3 kg WT: 154.66 lb BMI: 27.46 General: alert, no acute distress Skin: warm, dry intact Head: atraumatic, normocephalic Neck: trachea midline, no JVD, no bruit Eye: normal conjunctiva, sclera clear ENMT: oral mucosa moist Cardiovascular: regular rate and rhythm, no murmur, normal peripheral perfusion Respiratory: lungs CTA, respirations non labored Chest wall: no deformity. Gastrointestinal: soft, non-distended, no tenderness, no guarding. Back: no tenderness, normal ROM, normal alignment. Extremities: no edema, no deformity, no trauma Neurological: oriented x 4, LOC appropriate for age, sensation equal & normal bilaterally, speech normal Psychiatric: cooperative, affect appropriate for age, normal judgement, normal psychiatric thoughts. Assessment/Plan Jenny Franco is a 52-year-old female with hypertension that recently has been a little bit more challenging to control, also with some palpitations. I would like to do a transthoracic echocardiogram and an exercise stress test as we have the hypertension and some nonspecific ST-T wave changes on the EKG. In addition, we will get a 48-hour Holter monitor for her palpitations. 1. Hypertension. Blood pressure seemed to be reasonably well controlled now on the extra amlodipine. We will continue to monitor amlodipine and bisoprolol HCTZ. 2. Abnormal EKG. We will get a treadmill stress test. 3. Palpitations. We will get a 48-hour Holter monitor. Follow up in 4 to 6 weeks in [place]. Palpitations (R00.2: Palpitations) Portions of this record may have been created with voice recognition artificial intelligence software, specifically Jag.ag, [email or web address] and or [employer]. Substitutions may have occurred with voice recognition and artificial intelligence software. Documentation services were performed after patient or guardian consented to allow [employer] to record this visit. PUJA patient care specialist and provider reviewed before signing. PUJA: Radha Gunter. Follow-up No qualifying data available Problem List/Past Medical History Ongoing Anxiety Heart palpitations Hypertension Low back pain with left-sided sciatica Urethral meatal stenosis Historical Hypertension Procedure/Surgical History Cystourethroscopy with dilation of urethral stricture (02/28/2022), Laparoscopic oophorectomy (02/28/2022), delivery, Cholecystectomy, Hysterectomy, Tubal ligation. Medications amLODIPine 10 mg Tab, 10 mg= 1 tab(s), Oral, Daily, 3 refills automatic blood pressure monitor, See Instructions bisoprolol-hydrochlor othiazide 10 mg-6.25 mg Tab, 1 tab(s), Oral, Daily, 3 refills Estrace 0.1 mg/g Cream, 1 gm, Vaginal, MonFri, 3 refills Allergies No Known Medication Allergies Social History Tobacco Never (less than 100 in lifetime) Tobacco Use:. Never Smokeless Tobacco Use:. Household tobacco concerns: No., 09/14/2023 Family History Hypertension: Mother. [facility] Comment on above: Result Comment: Elec tronically Signed By: Alfredo CASTELLANO, Adrian Peres\.br\Date and Time Signed: 10/01/23 20:49 EST\.br\Electronically Co-Signed By: Radha Gunter\.br\Date and Time Co-Signed: 09/14/23 12:13 EST Insurance Correspondenceon 1 Insurance Correspondence [id number]# 1.00TIFF [facility] Physician Orderon 09-15-2023 Physician Order [id number]# 1.00TIFF [facility] Ambulatory Visit Summaryon 1 11-15-2022 Ambulatory Visit Summary JENNY FRANCO :1970 Visit Date:09/14/2023 Ambulatory Visit Instructions Your Diagnosis BMI 27.0-27.9,adult Non-smoker Your Care Team Attending Physician - Anamaria Kelley Primary Care Physician - Anamaria Kelley This Is Your Medications List [facility] Prescription (automatic blood pressure monitor) amlodipine (amLODIPine 10 mg Tab) bisoprolol-hydrochlor othiazide (bisoprolol-hydrochlo rothiazide 10 mg-6.25 mg Tab) estradiol topical (Estrace 0.1 mg/g Cream) Procedures Performed Cystourethroscopy with dilation of urethral stricture (02/28/2022), Laparoscopic oophorectomy (02/28/2022), delivery, Cholecystectomy, Hysterectomy, Tubal ligation. Discharge Vitals Heart Rate (Peripheral) 56 Respiratory Rate 14 Blood Pressure 130/84 Height 160 cm Height 63 in Weight 70.3 kg Weight 154.66 lb BMI 27.46 What to do next Scheduled Follow-Up Appointments Monday 10:00 AM EST With: Alfredo CASTELLANO, Adrian Peres Where: [facility] [place] 2023 10:00 AM EDT With: Anamaria Kelley Where: [facility] [place] Invalid Interpretation Code Abnormal ECG, pp_set_radiology _subspecialty, [facility], [facility]\.br\ Echo Transthoracic Complete, 09/14/23, Routine, Order for future visit, Transport Mode: Ambulatory, Reason: Hypertension, HTN (hypertension) [facility] Office/Clini c Noteon 09-14-2023 [facility] Office/Clinic Note HPI Staff Jenny is a 52 year old female presenting for 2 weeks follow up Pt saw Dr Beebe today and ordered Echocardiogram and Stress test Patient is here for follow up on hypertension. How often are you checking your blood pressure? Daily What are your average readings? all over from 120-170/ 60's pt continues to have palpitations History of Present Illness pt presents today for follow up on hypertension Review of Systems PHQ Score Initial Depression Screen Score: 0 SCORE ROS - Provider Constitutional: no fever, no chills, no sweats, no fatigue Respiratory: no shortness of breath, no cough, no orthopnea, no wheezing. Cardiovascular: no chest pain, no palpitations, no edema. Neurologic: no headache, no dizziness, no numbness, no weakness. Physical Exam Vitals & Measurements HR: 56(Peripheral) RR: 14 BP: 130/84 SpO2: 99% HT: 63 in HT: 160 cm WT: 70.3 kg WT: 154.66 lb BMI: 27.46 General: alert, no acute distress ENMT: oral mucosa moist, no pharyngeal erythema or exudate Cardiovascular: regular rate and rhythm, normal peripheral perfusion Respiratory: Lungs CTA, respirations non labored Extremities: no deformity, no trauma Neurological: oriented x 4, LOC appropriate for age, CN II-XII intact, motor strength equal & normal bilaterally, speech normal Assessment/Plan 1. Hypertension (I10: Essential (primary) hypertension) BP is at goal today. BP log reviewed. pt was seen by Dr. Fuentes prior to this appointment and is scheduled for stress test and echo. will send refills on meds. pt to continue monitoring BP. RTC 3 months. has follow up with cardiology in October. Ordered: amlodipine, 10 mg = 1 tab(s), Oral, Daily, # 30 tab(s), Refills(s) 0, Pharmacy: [facility] #[id number], 160, cm, 08/31/23 13:38:00 EST, Height/Length Dosing, 69.3, kg, 08/31/23 13:38:00 EST, Weight Dosing amlodipine, 10 mg = 1 tab(s), Oral, Daily, X 90 day(s), # 90 tab(s), Refills(s) 3, Pharmacy: [facility] #[id number], 160, cm, 09/14/23 10:53:00 EST, Height/Length Dosing, 70.3, kg, 09/14/23 10:53:00 EST, Weight Dosing bisoprolol-hydrochlor othiazide, 1 tab(s), Oral, Daily for 90 day(s), 90 tab(s), Refill(s) 3, [facility] #[id number], 160, cm, 09/14/23 10:53:00 EST, Height/Length Dosing, 70.3, kg, 09/14/23 10:53:00 EST, Weight Dosing bisoprolol-hydrochlor othiazide, 1 tab(s), Oral, Daily, 30 tab(s), Refill(s) 0, [facility] #[id number], 160, cm, 08/31/23 13:38:00 EST, Height/Length Dosing, 69.3, kg, 08/31/23 13:38:00 EST, Weight Dosing 2. Low back pain with left-sided sciatica (M54.42: Lumbago with sciatica, left side) pt c/o left side low back pain with sciatica. will order x ray at [facility] 3. BMI 27.0-27.9,adult (Z68.27: Body mass index [BMI] 27.0-27.9, adult) BMI education complete Ordered: amlodipine, 10 mg = 1 tab(s), Oral, Daily, # 30 tab(s), Refills(s) 0, Pharmacy: [facility] #[id number], 160, cm, 08/31/23 13:38:00 EST, Height/Length Dosing, 69.3, kg, 08/31/23 13:38:00 EST, Weight Dosing amlodipine, 5 mg = 1 tab(s), Oral, Daily, # 30 tab(s), Refills(s) 1, Pharmacy: [facility] #[id number], 160, cm, 08/03/23 14:08:00 EST, Height/Length Dosing, 70, kg, 08/03/23 14:08:00 EST, Weight Dosing amlodipine, 10 mg = 1 tab(s), Oral, Daily, X 90 day(s), # 90 tab(s), Refills(s) 3, Pharmacy: [facility] #[id number], 160, cm, 09/14/23 10:53:00 EST, Height/Length Dosing, 70.3, kg, 09/14/23 10:53:00 EST, Weight Dosing bisoprolol-hydrochlor othiazide, 1 tab(s), Oral, Daily for 90 day(s), 90 tab(s), Refill(s) 3, [facility] #[id number], 160, cm, 09/14/23 10:53:00 EST, Height/Length Dosing, 70.3, kg, 09/14/23 10:53:00 EST, Weight Dosing bisoprolol-hydrochlor othiazide, 1 tab(s), Oral, Daily, 30 tab(s), Refill(s) 0, [facility] #[id number], 160, cm, 08/31/23 13:38:00 EST, Height/Length Dosing, 69.3, kg, 08/31/23 13:38:00 EST, Weight Dosing 4. Non-smoker (Z78.9: Other specified health status) continue not smoking Ordered: amlodipine, 10 mg = 1 tab(s), Oral, Daily, # 30 tab(s), Refills(s) 0, Pharmacy: [facility] #[id number], 160, cm, 08/31/23 13:38:00 EST, Height/Length Dosing, 69.3, kg, 08/31/23 13:38:00 EST, Weight Dosing amlodipine, 5 mg = 1 tab(s), Oral, Daily, # 30 tab(s), Refills(s) 1, Pharmacy: [facility] #[id number], 160, cm, 08/03/23 14:08:00 EST, Height/Length Dosing, 70, kg, 08/03/23 14:08:00 EST, Weight Dosing amlodipine, 10 mg = 1 tab(s), Oral, Daily, X 90 day(s), # 90 tab(s), Refills(s) 3, Pharmacy: [facility] #[id number], 160, cm, 09/14/23 10:53:00 EST, Height/Length Dosing, 70.3, kg, 09/14/23 10:53:00 EST, Weight Dosing bisoprolol-hydrochlor othiazide, 1 tab(s), Oral, Daily for 90 day(s), 90 tab(s), Refill(s) 3, [facility] #[id number], 160, cm, 09/14/23 10:53:00 EST, Height/Length Dosing, 70.3, kg, 09/14/23 10:53:00 EST, Weight Dosing bisoprolol-hydrochlor othiazide, 1 tab(s), Oral, Daily, 30 tab(s), Refill(s) 0, [facility] #[id number], 160, cm, 08/31/23 13:38:00 EST, Height/Length Dosing, 69.3, kg, 08/31/23 13:38:00 EST, Weight Dosing Heart palpitations (R00.2: Palpitations) scheduled for echo and stress test Ordered: a (more content not included)... [facility] Comment on above: Result Comment: Elec tronically Signed By: Anamaria Kelley\.br\Date and Time Signed: 09/14/23 11:07 EST Physician Orderon 09-14-2023 Physician Order [id number] .00TIFF [facility] ECG 12-Leadon 09-01-2023 ECG 12-Lead [id number] .00TIFF [facility] Physician Referralon 023 Physician Referral [id number]# 1.00TIFF [facility] Ambulatory Visit Summaryon 1 11-01-2022 Ambulatory Visit Summary JENNY FRANCO :1970 Visit Date:08/31/2023 Ambulatory Visit Instructions Your Diagnosis BMI 27.0-27.9,adult Non-smoker Your Care Team Attending Physician - Anamaria Kelley Primary Care Physician - Anamaria Kelley This Is Your Medications List Misc Prescription (automatic blood pressure monitor) amlodipine (amLODIPine 5 mg Tab) estradiol topical (Estrace 0.1 mg/g Cream) Procedures Performed Cystourethroscopy with dilation of urethral stricture (02/28/2022), Laparoscopic oophorectomy (02/28/2022), delivery, Cholecystectomy, Hysterectomy, Tubal ligation. Discharge Vitals Heart Rate (Peripheral) 98 Respiratory Rate 18 Blood Pressure 150/110 Height 160 cm Height 63 in Weight 69.3 kg Weight 152.46 lb BMI 27.07 Medications What How Much When Why Instructions Unchanged amlodipine (amLODIPine 5 mg Tab) 1 Tablets By Mouth Every day BMI 27.0-27.9,adult Non-smoker Unchanged estradiol topical (Estrace 0.1 mg/ g Cream) 1 Gram Vaginal Monday & Monday At bedtime, insert 1gm vaginally then apply excess around urethra 2x/ week Unchanged Misc Prescription (automatic blood pressure monitor) See instructions BMI 27.0-27.9,adult Non-smoker check BP 1-2 hours after taking medication Allergies No Known Medication Allergies Problems Ongoing - Any problem that you are currently receiving treatment for. Anxiety Hypertension Urethral meatal stenosis Historical - Any problem that you are no longer receiving treatment for. Hypertension Patient Survey You may receive a survey via text or e-mail asking about your office visit. Please share your experience with us by completing your survey. We appreciate your feedback and thank you for choosing us for your care. [facility] Family Medicine Office/Clini c Noteon 08-31-2023 Family Medicine Office/Clinic Note HPI Staff Jenny is a 52 year old female presenting for 1 month follow up NANCY 08/03/23 started on Amlodipine 5mg Patient is here for follow up on hypertension. How often are you checking your blood pressure? Daily but doesn't have log What are your average readings? Do you have any of the following symptoms? Chest Pain? no Palpitations? no REBOLLEDO/SOB? no Headache? no Peripheral Edema? no Light Headed? no pt states she had surgery and her b/p was over 200's and was given IV drip of medication to bring blood pressure down. Pt states has been having palpitations this morning and yesterday. Pt took to ASA 81mg tablets and laid back down this morning and it subsided History of Present Illness pt presents today for BP follow up. Review of Systems PHQ Score Initial Depression Screen Score: 0 SCORE ROS - Provider Constitutional: no fever, no chills, no sweats, no fatigue Respiratory: no shortness of breath, no cough, no orthopnea, no wheezing. Cardiovascular: no chest pain, yes palpitations, no edema. Neurologic: no headache, no dizziness, no numbness, no weakness. Physical Exam Vitals & Measurements HR: 98(Peripheral) RR: 18 BP: 150/110 HT: 63 in HT: 160 cm WT: 69.3 kg WT: 152.46 lb BMI: 27.07 General: alert, no acute distress ENMT: oral mucosa moist, no pharyngeal erythema or exudate Cardiovascular: regular rate and rhythm, normal peripheral perfusion Respiratory: Lungs CTA, respirations non labored Extremities: no deformity, no trauma Neurological: oriented x 4, LOC appropriate for age, CN II-XII intact, motor strength equal & normal bilaterally, speech normal Assessment/Plan 1. Hypertension (I10: Essential (primary) hypertension) pt was recently started on amlodipine 5mg. She has been taking 2 of them. and BP is still elevated. will add hctz bisiprolol. pt to monitor BP at home and return in 2 weeks. EKG Borderline with Short VA Interval and non specific T-Wave abnormality. Will refer to Dr. Fuentes. pt has history of hypertension and was on 3 meds but stopped taking them for several years. discussed the importance of continuing BP meds. instructed pt to go to ER if she has chest pain, left shoulder pain, shortness of breath. pt verbalizes understanding. RTC 2 weeks Ordered: amlodipine, 10 mg = 1 tab(s), Oral, Daily, # 30 tab(s), Refills(s) 0, Pharmacy: [facility] #[id number], 160, cm, 08/31/23 13:38:00 EST, Height/Length Dosing, 69.3, kg, 08/31/23 13:38:00 EST, Weight Dosing bisoprolol-hydrochlor othiazide, 1 tab(s), Oral, Daily, 30 tab(s), Refill(s) 0, [facility] #[id number], 160, cm, 08/31/23 13:38:00 EST, Height/Length Dosing, 69.3, kg, 08/31/23 13:38:00 EST, Weight Dosing ECG 12 Lead Adult [facility] [place] Ambulatory Referral 2. Heart palpitations (R00.2: Palpitations) EKG performed in office today Ordered: amlodipine, 10 mg = 1 tab(s), Oral, Daily, # 30 tab(s), Refills(s) 0, Pharmacy: [facility] #[id number], 160, cm, 08/31/23 13:38:00 EST, Height/Length Dosing, 69.3, kg, 08/31/23 13:38:00 EST, Weight Dosing bisoprolol-hydrochlor othiazide, 1 tab(s), Oral, Daily, 30 tab(s), Refill(s) 0, [facility] #[id number], 160, cm, 08/31/23 13:38:00 EST, Height/Length Dosing, 69.3, kg, 08/31/23 13:38:00 EST, Weight Dosing ECG 12 Lead Adult [facility] [place] Ambulatory Referral 3. BMI 27.0-27.9,adult (Z68.27: Body mass index [BMI] 27.0-27.9, adult) bmi education complete Ordered: amlodipine, 10 mg = 1 tab(s), Oral, Daily, # 30 tab(s), Refills(s) 0, Pharmacy: [facility] #[id number], 160, cm, 08/31/23 13:38:00 EST, Height/Length Dosing, 69.3, kg, 08/31/23 13:38:00 EST, Weight Dosing bisoprolol-hydrochlor othiazide, 1 tab(s), Oral, Daily, 30 tab(s), Refill(s) 0, [facility] #[id number], 160, cm, 08/31/23 13:38:00 EST, Height/Length Dosing, 69.3, kg, 08/31/23 13:38:00 EST, Weight Dosing ECG 12 Lead Adult [facility] [place] Ambulatory Referral 4. Non-smoker (Z78.9: Other specified health status) continue not smoking Ordered: amlodipine, 10 mg = 1 tab(s), Oral, Daily, # 30 tab(s), Refills(s) 0, Pharmacy: [facility] #[id number], 160, cm, 08/31/23 13:38:00 EST, Height/Length Dosing, 69.3, kg, 08/31/23 13:38:00 EST, Weight Dosing bisoprolol-hydrochlor othiazide, 1 tab(s), Oral, Daily, 30 tab(s), Refill(s) 0, [facility] #[id number], 160, cm, 08/31/23 13:38:00 EST, Height/Length Dosing, 69.3, kg, 08/31/23 13:38:00 EST, Weight Dosing ECG 12 Lead Adult [facility] [place] [facility] Ambulatory Referral Follow-up No qualifying data available Problem List/Past Medical History Ongoing Anxiety Heart palpitations Hypertension Urethral meatal stenosis Historical Hypertension Procedure/Surgical History Cystourethroscopy with dilation of urethral stricture (02/28/2022), Laparoscopic oophorectomy (02/28/2022), delivery, Cholecystectomy, Hysterectomy, Tubal ligation. Medications amLODIPine 10 mg Tab, 10 mg= 1 tab(s), Oral, Daily amLODIPine 5 mg Tab, 5 mg= 1 tab(s), Oral, Daily, 1 refills automatic blood pressure monitor, See Instructions bisoprolol-hydrochlo (more content not included)... [facility] Comment on above: Result Comment: Elec tronically Signed By: Anamaria Kelley\.br\Date and Time Signed: 08/31/23 14:22 EST Operative Reporton Operative Report [id number] .00TIFF [facility] Patient Correspondenceon Patient Correspondence [id number]. 00TIFF [facility] Ambulatory Visit Summaryon 1 10-08-2022 Ambulatory Visit Summary JUSTINJeff JENNY Butterfield :1970 Visit Date:08/08/2023 Ambulatory Visit Instructions Your Care Team Attending Physician - Anamaria Kelley Primary Care Physician - Anamaria Kelley This Is Your Medications List [facility] [place] Prescription (automatic blood pressure monitor) amlodipine (amLODIPine 5 mg Tab) estradiol topical (Estrace 0.1 mg/g Cream) Procedures Performed Cystourethroscopy with dilation of urethral stricture (02/28/2022), Laparoscopic oophorectomy (02/28/2022), delivery, Cholecystectomy, Hysterectomy, Tubal ligation. Discharge Vitals Blood Pressure 148/98 What to do next Scheduled Follow-Up Appointments 2022 1:20 PM EST With: Anamaria Kelley Where: [facility] Nurse Consultation Noteon Nurse Consultation Note Reason for Visit Pt here for BP check. Pt was seen 08/03 for surgical clearance and BP was running high, pt restarted BP Med - amlodipine. Here for BP recheck today, per Anamaria. Pt states she took med at 7:30am, and it is making her urinate frequently. Pt instructed to sit quietly in room to rest prior to BP check. I got an initially high reading- 180/102. Had Yulia recheck - 166/104. Having pt try to rest/relax and will check again. After an additional 5-7 minutes, BP is still running 148/98. Medications amLODIPine 5 mg Tab, 5 mg= 1 tab(s), Oral, Daily, 1 refills automatic blood pressure monitor, See Instructions Estrace 0.1 mg/g Cream, 1 gm, Vaginal, MonFri, 3 refills Allergies No Known Medication Allergies Normal [facility] Provider Letteron 08-08-2023 Provider Letter [address] [place] [address] August 08, 2023 JENNY FRANCO [address] [place] [address] : [address] Vu, The above patient has been evaluated at your request for preoperative clearance. After assessment of available pertinent labs and diagnostic tests, I feel this patient is medically optimized for surgery. We are still adjusting her blood pressure medication dose. Final discretion of whether the patient is cleared for surgery remains up to the surgeon/anesthesiolog ist. Thank you, FRANKIE Westbrook [facility] ECG 12-Leadon 08-04-2023 ECG 12-Lead [id number] .00TIFF [facility] Lab Reportson 08-04-2023 Lab Reports [id number] .00TIFF [facility] Lab Reports [id number] .00TIFF [facility] Ambulatory Visit Summaryon 1 10-03-2022 Ambulatory Visit Summary JENNY FRANCO :1970 Visit Date:08/03/2023 Ambulatory Visit Instructions Your Diagnosis BMI 27.0-27.9,adult Non-smoker Your Care Team Attending Physician - Anamaria Kelley Primary Care Physician - Mickey BARRIGA DO This Is Your Medications List estradiol topical (Estrace 0.1 mg/g Cream) metoprolol Procedures Performed Cystourethroscopy with dilation of urethral stricture (02/28/2022), Laparoscopic oophorectomy (02/28/2022), delivery, Cholecystectomy, Hysterectomy, Tubal ligation. Discharge Vitals Heart Rate (Peripheral) 78 Respiratory Rate 18 Blood Pressure 158/118 Height 160 cm Height 63 in Weight 69.95 kg Weight 153.89 lb BMI 27.32 What to do next Scheduled Follow-Up Appointments 2022 1:20 PM EST With: Anamaria Kelley Where: [facility] Formson 08-02-2023 Forms [id number] .00TIFF [facility] Consent for Procedure/Surger yon 07-13-2023 Consent for Procedure/Surgery [id number] .00TIFF [facility] CBC AUTO DIFFon 09-06-2022 BASO # 0.0 103/ul Normal 0.0-0.1 [facility] Comment on above: Performed By: #### C BC #### [facility] [address] [place] [address] Dr. Jamir Nicholson Basophils/100 WBC (Bld) 0.3 % Normal 0.2-2.0 [facility] Comment on above: Performed By: #### C BC #### [facility] [address] [place] [address] Dr. Jamir Nicholson EO # 0.0 103/ul Normal 0.0-0.7 [facility] Comment on above: Performed By: #### C BC #### [facility] [address] [place] [address] Dr. Jamir Nicholson Eosinophils/100 WBC (Bld) 0.3 % Critically low 0.9-7.0 [facility] Comment on above: Performed By: #### C BC #### [facility] [address] [place] [address] Dr. Jamir Nicholson Erythrocyte distribution width (RBC) [Ratio] 13.5 % Normal 11.0-15.0 [facility] Comment on above: Performed By: #### C BC #### [facility] [address] [place] [address] Dr. Jamir Nicholson Hematocrit (Bld) [Volume fraction] 38.8 % Normal 36.0-48.0 [facility] Comment on above: Performed By: #### C BC #### [facility] [address] [place] [address] Dr. Jamir Nicholson Hemoglobin (Bld) [Mass/Vol] 13.3 g/dL Normal 12.0-16.0 [facility] Comment on above: Performed By: #### C BC #### [facility] [address] [place] [address] Dr. Jamir Nicholson IG # 0.00 10e3/ul Normal 0.00-0.03 [facility] Comment on above: Performed By: #### C BC #### [facility] [address] [place] [address] Dr. Jamir Nicholson IG % 0.0 % Normal 0.0-0.5 [facility] Comment on above: Performed By: #### C BC #### [facility] [address] [place] [address] Dr. Jamir Nicholson LYMPH # 1.4 103/ul Normal 1.2-3.8 [facility] Comment on above: Performed By: #### C BC #### [facility] [address] [place] [address] Dr. Jamir Nicholson Lymphocytes/100 WBC (Bld) 36.0 % Normal 20.5-60.0 [facility] Comment on above: Performed By: #### C BC #### [facility] [address] [place] [address] Dr. Jamir Nicholson MANUAL DIFF REQ NO Normal [facility] Comment on above: Performed By: #### C BC #### [facility] [address] [place] [address] Dr. Jamir Nicholson MCH (RBC) [Entitic mass] 30.4 pg Normal 26.7-34.0 [facility] Comment on above: Performed By: #### C BC #### [facility] [address] [place] [address] Dr. Jamir Nicholson MCHC (RBC) [Mass/Vol] 34.3 g/dL Normal 29.9-35.2 [facility] Comment on above: Performed By: #### C BC #### [facility] [address] [place] [address] Dr. Jamir Nicholson MCV (RBC) [Entitic vol] 88.6 fL Normal 81.0-99.0 [facility] Comment on above: Performed By: #### C BC #### [facility] [address] [place] [address] Dr. Jamir Nicholson MONO # 0.2 103/ul Critically low 0.3-0.8 [facility] Comment on above: Performed By: #### C BC #### [facility] [address] [place] [address] Dr. Jamir Nicholson Monocytes/100 WBC (Bld) 6.0 % Normal 1.7-12.0 [facility] Comment on above: Performed By: #### C BC #### [facility] [address] [place] [address] Dr. Jamir Nicholson NEUT # 2.2 103/ul Normal 1.4-6.5 [facility] Comment on above: Performed By: #### C BC #### [facility] [address] [place] [address] Dr. Jamir Nicholson Neutrophils/100 WBC (Bld) 57.4 % Normal 43.0-75.0 [facility] Comment on above: Performed By: #### C BC #### [facility] [address] [place] [address] Dr. Jamir Nicholson Platelet mean volume (Bld) [Entitic vol] 10.9 fL Normal 9.5-13.5 [facility] Comment on above: Performed By: #### C BC #### [facility] [address] [place] [address] Dr. Jamir Nicholson PLT 207 103/ul Normal 150-450 [facility] Comment on above: Performed By: #### C BC #### [facility] [address] [place] [address] Dr. Jamir Nicholson RBC 4.38 106/ul Normal 4.20-5.40 [facility] Comment on above: Performed By: #### C BC #### [facility] [address] [place] [address] Dr. Jamir Nicholson WBC 3.8 103/ul Critically low 4.0-11.0 [facility] Comment on above: Performed By: #### C BC #### [facility] [address] [place] [address] Dr. Jamir Nicholson Covid-19 PCR ([facility])on 08-25 SARS-CoV-2 (COVID-19) RNA SELINA+probe Ql (Unsp spec) Not detected Normal NOT DETECTED [facility] Comment on above: Result Comment: This test is not yet approved or cleared by the [place] FDA. When there are no FDA-approved or cleared tests available, and other criteria are met, FDA can make tests available under an emergency access mechanism called an Emergency Use Authorization (EUA). The EUA for this test is supported by the [place] of Health and Human Service's (HHS's) declaration that circumstances exist to justify the emergency use of in vitro diagnostics for the detection and/or diagnosis of the virus that causes COVID-19. This EUA will remain in effect (meaning this test can be used) for the duration of the COVID-19 declaration justifying emergency of IVDs, unless it is terminated or revoked by FDA (after which the test may no longer be used). When diagnostic testing is negative, the possibility of a false negative should be considered in the context of a patient's recent exposures and the presence of clinical signs and symptoms consistent with SARS-CoV-2. Performed By: #### C VDTB #### [facility] [address] [place] [address] Dr. Jamir Nicholson PROF CHEM 8 (BAS METB)on Anion gap [Moles/Vol] 11.3 mmol/L Normal [facility] Comment on above: Performed By: #### B MP #### [facility] [address] [place] [address] Dr. Jamir Nicholson Calcium [Mass/Vol] 9.1 mg/dL Normal 8.5-10.1 [facility] Comment on above: Performed By: #### B MP #### [facility] [address] [place] [address] Dr. Jamir Nicholson Chloride [Moles/Vol] 101 mmol/L Normal 98-107 [facility] Comment on above: Performed By: #### B MP #### [facility] [address] [place] [address] Dr. Jamir Nicholson CO2 [Moles/Vol] 33.1 mmol/L Critically high 21.0-32.0 [facility] Comment on above: Performed By: #### B MP #### [facility] [address] [place] [address] Dr. Jamir Nicholson Creatinine [Mass/Vol] 1.03 mg/dL Critically high 0.55-1.02 [facility] Comment on above: Performed By: #### B MP #### [facility] [address] [address] [address] Jamir Nicholson EGFR-AF UKRAINIAN >60 Normal >=60 [facility] Comment on above: Performed By: #### B MP #### [facility] [address] [address] [address] Jamir Nicholson EGFR-NON AF UKRAINIAN 56 mL/min/1.73m2 Critically low >=60 [facility] Comment on above: Performed By: #### B MP #### [facility] [address] [address] [address] Jamir Nicholson Glucose [Mass/Vol] 87 mg/dL Normal 74-106 [facility] Comment on above: Performed By: #### B MP #### [facility] [address] [place] [address] Dr. Jamir Nicholson Potassium [Moles/Vol] 3.4 mmol/L Critically low 3.5-5.1 [facility] Comment on above: Performed By: #### B MP #### [facility] [address] [address] [address] Jamir Nicholson Sodium [Moles/Vol] 142 mmol/L Normal 136-145 [facility] Comment on above: Performed By: #### B MP #### [facility] [address] [place] [address] Dr. Jmair Nicholson Urea nitrogen [Mass/Vol] 9.0 mg/dL Normal 7.0-18.0 [facility] Comment on above: Performed By: #### B MP #### [facility] [address] [place] [address] Dr. Jamir Nicholson Urea nitrogen/Creatinine [Mass ratio] 8.7 mg/mg Normal [facility] Comment on above: Performed By: #### B MP #### [facility] [address] [place] [address] Dr. Jamir Nicholson XR KUB 1 VIEWon 09-05-2022 XR KUB 1 VIEW EXAMINATION: XR KUB 1 VIEW HISTORY: Kidney stone COMPARISON: No relevant comparison available. FINDINGS: KIDNEY/URETER - RIGHT: No visible renal or ureteral calcifications. KIDNEY/URETER - LEFT: No visible renal or ureteral calcifications. PELVIS: No visible ureteral calcifications. Any visible calcifications favor phleboliths. BOWEL: No abnormal dilation or deviation. BONES: No acute abnormality. OTHER: Negative. No abnormal gaseous collections. IMPRESSION: No definite urinary tract calculi Electronically authenticated by: RUFUS ZHAO Date: 2022-09-05 07:27 Normal [facility] CBC W MANUAL DIFFon 02-29-20 22 ATYPICAL LYMPH # 0.00 103/ul Normal [facility] Comment on above: Performed By: #### John PALOMO PERSMR #### [facility] [address] [place] [address] Dr. Jamir Nicholson ATYPICAL LYMPH % 0 % Normal [facility] Comment on above: Performed By: #### John PALOMO PERSMR #### [facility] [address] [place] [address] Dr. Jamir Nicholson BAND # 0.0 103/ul Normal 0.0-0.3 [facility] Comment on above: Performed By: #### John PALOMO PERSMR #### [facility] [address] [place] [address] Dr. Jamir Nicholson BAND % 0 % Normal 0-5 [facility] Comment on above: Performed By: #### John PALOMO PERSMR #### [facility] [address] [place] [address] Dr. Jamir Nicholson BASOM # 0.00 103/ul Normal 0.00-0.10 [facility] Comment on above: Performed By: #### John PALOMO PERSMR #### [facility] [address] [place] [address] Dr. Jamir Nicholson BASOM % 0.0 % Critically low 0.2-2.0 [facility] Comment on above: Performed By: #### John PALOMO PERSMR #### [facility] [address] [place] [address] Dr. Jamir Nicholson BLAST # 0.0 103/ul Normal [facility] Comment on above: Performed By: #### John PALOMO PERSMR #### [facility] [address] [place] [address] Dr. Jamir Nicholson BLAST % 0 % Normal [facility] Comment on above: Performed By: #### C STACIA, PERSMR #### [facility] [address] [address] [address] Jamir Nicholson CORRECTED WBC Normal 4.0-11.0 [facility] Comment on above: Performed By: #### C STACIA, PERSMR #### [facility] [address] [address] [address] Jamir Nicholson EOS # 0.00 103/ul Normal 0.00-0.70 [facility] Comment on above: Performed By: #### C STACIA, PERSMR #### [facility] [address] [address] [address] Jamir Nicholson EOS% 0.0 % Critically low 0.9-7.0 [facility] Comment on above: Performed By: #### John PALOMO, PERSMR #### [facility] [address] [address] [address] Jamir Nicholson HCT 39.6 % Normal 36.0-48.0 [facility] Comment on above: Performed By: #### John PALOMO, PERSMR #### [facility] [address] [address] [address] Jamir Nicholson HGB 13.3 g/dl Normal 12.0-16.0 [facility] Comment on above: Performed By: #### John PALOMO, PERSMR #### [facility] [address] [address] [address] Jamir Nicholson LYMPHM # 1.91 103/ul Normal 1.20-3.80 [facility] Comment on above: Performed By: #### C STACIA, PERSMR #### [facility] [address] [address] [address] Jamir Nicholson LYMPHM% 66.0 % Critically high 20.5-60.0 [facility] Comment on above: Performed By: #### John PALOMO, PERSMR #### [facility] [address] [address] [address] Jamir Nicholson MCH 31.2 pg Normal 26.7-34.0 [facility] Comment on above: Performed By: #### C STACIA, PERSMR #### [facility] [address] [address] [address] Jamir Nicholson MCHC 33.6 g/dl Normal 29.9-35.2 [facility] Comment on above: Performed By: #### C STACIA, PERSMR #### [facility] [address] [address] [address] Jamir Nicholson MCV 93.0 fL Normal 81.0-99.0 [facility] Comment on above: Performed By: #### C STACIA, PERSMR #### [facility] [address] [address] [address] Jamir Nicholson METAMYELOCYTE # 0.1 103/ul Normal [facility] Comment on above: Performed By: #### John PALOMO, PERSMR #### [facility] [address] [place] [address] Dr. Jamir Nicholson METAMYELOCYTE % 2 % Normal [facility] Comment on above: Performed By: #### John PALOMO, PERSMR #### [facility] [address] [address] [address] Jamir Nicholson MONOM# 0.23 103/ul Critically low 0.30-0.80 [facility] Comment on above: Performed By: #### John PALOMO, PERSMR #### [facility] [address] [place] [address] Dr. Jamir Nicholson MONOM% 8.0 % Normal 1.7-12.0 [facility] Comment on above: Performed By: #### John PALOMO, PERSMR #### [facility] [address] [address] [address] Jamir Nicholson MPV 11.2 fL Normal 9.5-13.5 [facility] Comment on above: Performed By: #### John PALOMO, PERSMR #### [facility] [address] [address] [address] Jamir Nicholson MYELOCYTE # 0.0 103/ul Normal [facility] Comment on above: Performed By: #### John PALOMO, PERSMR #### [facility] [address] [address] [address] Jamir Nicholson MYELOCYTE % 0 % Normal [facility] Comment on above: Performed By: #### John PALOMO PERSMR #### [facility] [address] [place] [address] Dr. Jamir Nicholson NRBC 0 Normal [facility] Comment on above: Performed By: #### John PALOMO PERSMR #### [facility] [address] [address] [address] Jamir Nicholson PATH REVIEW INDICATED Normal [facility] Comment on above: Performed By: #### John PALOMO PERSMR #### [facility] [address] [place] [address] Dr. Jamir Nicholson PLT 176 103/ul Normal 150-450 [facility] Comment on above: Performed By: #### John PALOMO PERSMR #### [facility] [address] [place] [address] Dr. Jamir Nicholson RBC 4.26 106/ul Normal 4.20-5.40 [facility] Comment on above: Performed By: #### John PALOMO PERSMR #### [facility] [address] [place] [address] Dr. Jamir Nicholson RDW 13.2 % Normal 11.0-15.0 [facility] Comment on above: Performed By: #### John PALOMO PERSMR #### [facility] [address] [place] [address] Dr. Jamir Nicholson SEG # 0.70 103/ul Critically low 1.40-6.50 [facility] Comment on above: Performed By: #### John PALOMO PERSMR #### [facility] [address] [place] [address] Dr. Jamir Nicholson SEG % 24.0 % Critically low 43.0-75.0 [facility] Comment on above: Performed By: #### John PALOMO PERSMR #### [facility] [address] [place] [address] Dr. Jamir Nicholson WBC 2.9 103/ul Critically low 4.0-11.0 [facility] Comment on above: Performed By: #### C STACIA, PERSMR #### [facility] [address] [place], [place] [address] Dr. Jamir Nicholson PERIPHERAL SMEARon Pathologist Cyto stain Nom (Cvx/Vag) [ID] DR. PAT RUIZ Normal [facility] Comment on above: Result Comment: --Ne utropenia of unknown etiology. ICD code: D72.819 CPT: 03671 Dr Pat Ruiz 03/01/2022 Performed By: #### C STACIA, PERSMR ####[facility] [id number] [place], [place] [address]AiDr. Jamir Nicholson PREG QUANT HCGon 02-28-2022 HCG QUANT 4 mIU/mL Normal [facility] Comment on above: Performed By: #### P REGQNT #### [facility] [address] [place], [place] [address] Dr. Jamir Nicholson HCG RANGE SEE BELOW Normal [facility] Comment on above: Result Comment: 5-50 0-1 WEEK 40-300 1-2 WEEKS 100-1,000 2-3 WEEKS 500-6,000 3-4 WEEKS 5,000-200,000 1-2 MONTHS 10,000-100,000 2-3 MONTHS 3,000-50,000 2ND TRIMESTER 1,000-50,000 3RD TRIMESTER Performed By: #### P REGQNT #### [facility] [address] [place], [place] [address] Dr. Jamir Nicholson Covid-19 PCR (CVDTB)on SARS-CoV-2 (COVID-19) RNA SELINA+probe Ql (Unsp spec) Not detected Normal NOT DETECTED [facility] Comment on above: Result Comment: This test is not yet approved or cleared by the [place] FDA. When there are no FDA-approved or cleared tests available, and other criteria are met, FDA can make tests available under an emergency access mechanism called an Emergency Use Authorization (EUA). The EUA for this test is supported by the [place] of Health and Human Service's (HHS's) declaration that circumstances exist to justify the emergency use of in vitro diagnostics for the detection and/or diagnosis of the virus that causes COVID-19. This EUA will remain in effect (meaning this test can be used) for the duration of the COVID-19 declaration justifying emergency of IVDs, unless it is terminated or revoked by FDA (after which the test may no longer be used). When diagnostic testing is negative, the possibility of a false negative should be considered in the context of a patient's recent exposures and the presence of clinical signs and symptoms consistent with SARS-CoV-2. Performed By: #### C VDTB #### [facility] [address] [place] [address] Dr. Jamir Nicholson US PELVIS AND TRANSVAGon US PELVIS AND TRANSVAG EXAMINATION: US PELVIS AND TRANSVAG HISTORY: Postcoital bleeding COMPARISON: No relevant comparison available. FINDINGS: The uterus is nonvisualized consistent with known prior hysterectomy The right ovary is nonvisualized consistent with known oophorectomy The left ovary measures 4.1 x 2.5 x 2.2 cm. Area of anechoic echogenicity measuring 3.4 x 2.3 x 1.8 cm. Normal color flow. No free fluid IMPRESSION: 3.4 cm left ovarian simple cyst Electronically authenticated by: RUFUS ZHAO Date: 2021-12-28 13:04 Normal The [facility] Covid-19 PCR ([facility])on SARS-CoV-2 (COVID-19) RNA SELINA+probe Ql (Unsp spec) Detected Critically abnormal NOT DETECTED [facility] Comment on above: Result Comment: This test is not yet approved or cleared by the [place] FDA. When there are no FDA-approved or cleared tests available, and other criteria are met, FDA can make tests available under an emergency access mechanism called an Emergency Use Authorization (EUA). The EUA for this test is supported by the [place] of Health and Human Service's declaration that circumstances exist to justify the emergency use of in vitro diagnostics for the detection and/or diagnosis of the virus that causes COVID-19. This EUA will remain in effect for the duration of the COVID-19 declaration justifying emergency of IVDs, unless it is terminated or revoked by the FDA (after which the test may no longer be used). Performed By: #### C VDTBH #### [facility] [address] [address] [address] Jamir Nicholson Vital Signs Date Time Vital Sign Value Performing Clinician Alesiso montelongo 03-01-2024 12:59-0400 Diastolic blood pressure 80 mm[Hg] Celestino Kirnus [facility] 03-01-2024 12:59-0400 Heart rate 72 /min Celestino Kirnus [facility] 03-01-2024 12:59-0400 Systolic blood pressure 136 mm[Hg] Celestino Davidnus [facility] 09-14-2023 10:07-0500 Diastolic blood pressure 72 mm[Hg] Adrian Fuentes [facility] 09-14-2023 10:07-0500 Heart rate 61 /min Adrian Fuentes [facility] 09-14-2023 10:07-0500 SaO2% (BldA) [Mass fraction] 100 % Adrian Fuentes [facility] 09-14-2023 10:07-0500 Systolic blood pressure 134 mm[Hg] Adrian Fuentes [facility] 12-02-2022 11:19-0500 Blood Pressure Location Derrick VU [facility] 12-02-2022 11:19-0500 Diastolic blood pressure 88 mm[Hg] Derrick VU [facility] 12-02-2022 11:19-0500 Heart rate 79 /min Derrick VU [facility] 12-02-2022 11:19-0500 Respiratory rate 16 /min Derrick VU [facility] 12-02-2022 11:19-0500 Systolic blood pressure 140 mm[Hg] Derrick VU [facility] Encounters Encounter Date Encounter Type Care Provider Facility Start: 03-01-2024 End: 03-01-2024 ambulatory Celestinonasreen Paulino Facility[place] Start: 03-01-2024 End: 03-01-2024 Patient encounter procedure Celestino Paulino [facility] Start: 01-15-2024 End: 01-15-2024 ambulatory Anamaria L Mellisa Facility:[facility] Start: 12-21-2023 End: 12-21-2023 ambulatory Anamaria L Mellisa [facility] Start: 10-27-2023 End: 10-27-2023 ambulatory Adrian Fuentes Facility:[facility] Start: 10-16-2023 End: 10-16-2023 ambulatory Adrian Fuentes Facility:[facility] Start: 10-16-2023 End: 10-16-2023 Patient encounter procedure Adrian Fuentes [facility] Start: 09-14-2023 End: 09-14-2023 ambulatory Anamaria L Mellisa [facility] Start: 09-14-2023 End: 09-14-2023 Patient encounter procedure Adrian Fuentes [facility] Start: 08-31-2023 End: 08-31-2023 ambulatory Anamaria L Mellisa Facility:[facility] [place] Start: 08-10-2023 End: 08-10-2023 ambulatory Derrick VU Facility:CD:[id number] Start: 08-08-2023 End: 08-08-2023 ambulatory Anamaria L Mellisa Facility:[facility] [place] Start: 08-07-2023 End: 08-07-2023 ambulatory Derrick VU Facility:[facility] Start: 08-07-2023 End: 08-07-2023 Patient encounter procedure Derrick VU [facility] Start: 08-03-2023 End: 08-03-2023 ambulatory Anamaria L Mellisa Facility:[facility] Start: 08-01-2023 ambulatory Anamaria Mellisa Facility:[facility] Start: 12-02-2022 End: 12-02-2022 Patient encounter procedure Derrick VU [facility] Start: 09-11-2022 Encounter for preprocedural cardiovascular examination DR DERRICK VU [facility] Start: 09-11-2022 Encounter for preprocedural laboratory examination DR DERRICK VU [facility] Start: 09-08-2022 End: 09-08-[address] DERRICK VU Facility:[facility] Start: 09-06-2022 End: 09-07-[address] DERRICK VU Facility:[facility] Start: 09-06-2022 End: 09-07-2022 Encounter for preprocedural cardiovascular examination DR DERRICK VU Facility:[facility] Start: 09-05-2022 End: 09-05-2022 Patient encounter procedure Derrick VU [facility] Start: 09-03-2022 End: 09-04-[address] DAVID QUINTERO Facility:[facility] Start: 04-28-[address] DOCTOR HONEYCUTT Facility :[facility] Start: 03-22-[address] DOCTOR HONEYCUTT Facility :[facility] Start: 03-02-2022 Encounter for preprocedural laboratory examination DR MICKEY BARRIGA [facility] Start: 02-28-2022 End: 02-28-[address] DERRICK VU Facility:[facility] Start: 02-24-2022 End: 02-25-[address] MICKEY BARRIGA Facility:[facility] Start: 02-24-2022 End: 02-25-2022 Encounter for preprocedural laboratory examination DR MICKEY BARRIGA Facility:[facility] Start: 02-14-2022 End: 02-15-[address] MICKEY BARRIGA Facility:[facility] Start: 12-28-2021 End: 12-29-[address] RUFUS ZHAO Facility:[facility] Start: 09-26-2021 End: 09-27-[address] SEBASTIAN HALL Facility:[facility] Procedures Date Procedure Procedure Detail Performing Clinician Start: 02-28-2022 Cystourethroscopy wi th dilation of urethral stricture [facility]U Start: 02-28-2022 Laparoscopic oophorectomy Derricktesfaye VU section Derrick KING Cholecystectomy Derrick ESTEBAN Hysterectomy Derrick VU Ligation of fallopian tube P srinivas VU Payers Date Payer Category Payer Unknown [id number] 2.16.84 [id number] 1968 Unknown [id number] 2.16.84 [id number] 1968 Unknown [id number] 2.16.84 0.1.221319.3.579.2.593 1968 Unknown [id number] 2.16.84 0.1.409435.3.579.2.593 1968 Unknown [id number] 2.16.84 0.1.631090.3.579.2.593 1968 Unknown [id number] 2.16.84 0.1.982079.3.579.2.593 1968 Unknown [id number] .16.84 0.1.772031.3.579.2.593 1968 Unknown [id number] 2.16.84 0.1.480605.3.579.2.593 1968 Unknown [id number] 2.16.84 0.1.174136.3.579.2.593 1968 Unknown [id number] 2.16.84 0.1.816698.3.579.2.593 1968 Unknown [id number] 2.16.8 40.1.835638.3.579.2.727 1968 Unknown [id number] 2.16.8 40.1.377835.3.579.2.727 1968 Unknown [id number] 2.16.8 40.1.298710.3.579.2.727 1968 Unknown [id number] 2.16.8 40.1.524570.3.579.2.727 1968 Unknown [id number] 2.16.8 40.1.639261.3.579.2.727 1968 Unknown [id number] 2.16.8 40.1.150545.3.579.2.727 1968 Unknown [id number] 2.16.8 40.1.862873.3.579.2.727 1968 Unknown [id number] 2.16.8 40.1.728612.3.579.2.727 1968 Unknown [id number] 2.16.8 40.1.699226.3.579.2.727 1968 Unknown [id number] 2.16.8 40.1.100138.3.579.2.727 1968 Unknown [id number] 2.16.8 40.1.395623.3.579.2.727 1968 Unknown [id number] 2.16.8 40.1.780678.3.579.2.727 1961 Medicaid [id number] 1961 Private Health Insurance [id number] 1961 Self-pay 1961 Unknown [id number] Social History Date Type Detail Facility Start: 09-05-2022 End: 03-01-2024 Tobacco smoking status Never smoked tobacco (finding) [facility] Tobacco smoking status Never [facility] Sex Assigned At Female [facility] Functional Status Date Assessment Result Facility 03-01-2024 Functional Status N/A [facility] 09-14-2023 Functional Status N/A [facility] 12-02-2022 Functional Status N/A [facility] 09-05-2022 Functional Status N/A [facility] Clinical Notes 02-28-2022 to 10-27-2023 Radiology Note Date & Type Note Facility 10-27-2023 Note 48-HOUR HOLTER MONIT OR DATE OF PROCEDURE: 10/16/2023 to 10/18/2023 ORDERING PHYSICIAN: Adrian Fuentes M.D. INTERPRETING PHYSICIAN: Brenton Wilks M.D. INDICATIONS: Not documented. RESULTS: The predominant rhythm throughout the study was normal sinus rhythm at a minimum heart rate of 49 beats per minute and a maximum of 113 beats per minute. The patient had no patient events triggered. The patient had 0% atrial fibrillation documented. Ventricular ectopy: The patient had two isolated premature ventricular contractions noted. Supraventricular ectopy: The patient had a total of 44 supraventricular ectopic beats of which 40 were isolated premature atrial contractions. The patient had two atrial couplets noted. No sustained arrhythmias noted. CONCLUSIONS: 1. Unremarkable 48-hour Holter monitor. The patient had rare premature atrial contractions and premature ventricular contractions noted. 2. The patient had no symptoms documented in her diary. 3. The patient had no evidence of atrial fibrillation, supraventricular tachycardia, atrial flutter, ventricular tachycardia or pauses noted. Recommend clinical correlation or alternative mode of testing if clinically indicated. READ BY: Brenton Wilks M.D. Dictated: 10/27/2023 [id number] Transcribed: 10/27/2023 cc:Adrian Fuentes M.D. [facility] Comment on above: Result Comment: Elec tronically Signed By: LASHAUN CASTELLANO, Brenton Ochoa\.br\Date and Time Signed: 10/27/23 13:04 EST 10-16-2023 Note Echocardiology Procedure Exam Date/Time Accession # Ordering ECG Stress Exercise 10/16/2023 14:55 EST [id number] Adrian Fuentes MD CPT code 90426 Reason for Exam (ECG Stress Exercise) I10;Other (please specify) Report TREADMILL ELECTROCARDIOGRAM 10/16/2023 INDICATIONS: Palpitations and chest pain. RESTING ELECTROCARDIOGRAM: The patient has sinus bradycardia, normal axis, normal intervals, no evidence of previous myocardial infarction. TREADMILL ELECTROCARDIOGRAM: The patient exercised according to Dickson Protocol for 6 minutes and 14 seconds achieving a maximum workload of 7.30 METS. Resting heart rate was 55 beats per minute and ru to a maximum of 107 beats per minute which represents 64% of the maximal age predicted heart rate. Resting blood pressure was 158/104 and ru to a maximum of 171/96. During exercise the patient's heart rate increased as expected. The patient had no dynamic electrocardiogram changes, or arrhythmias noted. CONCLUSIONS: 1. Normal submaximal treadmill electrocardiogram. Negative for ischemia by electrocardiogram criteria. No anginal symptoms noted. No arrhythmias noted. A decreased sensitivity due to failure to reach target heart rate. 2. Appropriate blood pressure response to exercise. 3. Recommend clinical correlation or alternative mode of testing as the patient was unable to achieve target heart rate. FINAL REPORT Signed (Electronic Signature): 10/16/2023 4:33 pm Signed by: Brenton WILKS MD Transcribed by: delmi Technologist: Zahra [facility] 10-16-2023 Note Echocardiology Procedure Exam Date/Time Accession # Ordering Echo Transthoracic 10/16/2023 14:00 EST [id number] Adrian Fuentes MD CPT code [id number] Reason for Exam (Echo Transthoracic Complete) I10;Hypertension Report [address] [address] Adult Echocardiogram Report Name: JENNY FRANCO Study Date: 10/16/2023 01:26 PM BP: 143/77 mmHg Patient Location: [facility] HR: 61 : 1970 Gender: Female Height: 63 in Age: 52 yrs Ethnicity: [facility] Weight: 153 lb Reason For Study: Hypertension BSA: 1.7 m2 History: Chest Pain Ordering Physician: Alfredo^Adrian^Ja Referring Physician: Adrian Fuentes Performed By: Masha He, LETICIA, RVT Interpretation Summary No comparison study is available. Ejection Fraction = 60-65%. There is mild mitral regurgitation. There is mild to moderate tricuspid regurgitation. Right ventricular systolic pressure is 33 mmHg. Procedure A complete two-dimensional transthoracic echocardiogram was performed (2D, M-mode, spectral and color flow Doppler). Study quality is good. I WMSI = 1.00 % Normal = 100 Segments Size X - Cannot 2 - 1-2 small Interpret 1 - Normal Hypokinetic 3 - Akinetic 4 - Dyskinetic3-5 moderate 5 - Aneurysmal 6-14 large 15-16 diffuse Left Ventricle The left ventricle is normal in size. There is normal left ventricular wall thickness. Ejection Fraction = 60-65%. Echocardiology Report Left Atrium The left atrial size is normal. Right Atrium Right atrial size is normal. Right Ventricle The right ventricular systolic function is normal. Aortic Valve The aortic valve is trileaflet. Mitral Valve Mitral valve structure is normal. There is mild mitral regurgitation. Tricuspid Valve Structurally normal tricuspid valve. There is mild to moderate tricuspid regurgitation. Right ventricular systolic pressure is 33 mmHg. Pulmonic Valve The pulmonic valve is normal. Arteries The aortic root is normal in size. Venous The inferior vena cava is normal in size, and collapses normally with respiration. Effusion There is no pericardial effusion. MMode/2D Measurements & Calculations RVDd: 2.9 cm LVIDd: 4.4 cm FS: 30.6 % Ao root diam: 2.5 cm IVSd: 0.91 cm LVIDs: 3.0 cm EDV(Teich): 85.4 ml Ao root area: 4.7 cm2 LVPWd: 0.98 cm ESV(Teich): 35.5 ml LA dimension: 4.0 cm EF(Teich): 58.4 % asc Aorta Diam: 3.0 cm LVOT diam: 1.9 cm LVLd ap4: 6.7 cm EDV(MOD-sp2): 53.8 ml LVOT area: 2.9 cm2 EDV(MOD-sp4): 52.5 ml ESV(MOD-sp2): 20.5 ml LVLs ap4: 5.6 cm EF(MOD-sp2): 61.9 % ESV(MOD-sp4): 17.4 ml EF(MOD-sp4): 66.9 % SV(MOD-sp4): 35.1 ml TAPSE: 2.2 cm IVC Diam: 1.4 cm RVIDd/LVIDd: 0.66 EF (MOD-bp): 65.4 % Doppler Measurements & Calculations MV E max merrick: 71.1 cm/sec MV dec time: 0.20 sec Ao V2 max: 128.0 cm/sec LV V1 max P.2 mmHg MV A max merrick: 84.0 cm/sec Ao max P.6 mmHg LV V1 mean P.0 mmHg Echocardiology Report MV E/A: 0.85 Ao V2 mean: 82.5 cm/sec LV V1 max: 102.0 cm/sec Lat Peak E' Merrick: 10.7 cm/sec Ao mean P.0 mmHg LV V1 mean: 64.5 cm/sec E/E' Lat: 6.7 Ao V2 VTI: 27.2 cm LV V1 VTI: 21.7 cm Med Peak E' Merrick: 5.8 cm/sec CARLOS EDUARDO(I,D): 2.3 cm2 E/E' Med: 12.3 CARLOS EDUARDO(V,D): 2.3 cm2 SV(LVOT): 63.0 ml TR max merrick: 272.8 cm/sec RAP systole: 3.0 mmHg AV VR: 0.80 TR max P.8 mmHg CARLOS EDUARDO(VTI)/BSA_phl: 1.3 RVSP(TR): 32.8 mmHg FINAL REPORT Dictated: 10/16/2023 1:26 pm Brenton WILKS MD Signed (Electronic Signature): 10/16/2023 4:25 pm Signed by: Brenton WILKS MD Transcribed by: BOB Technologist: NEREIDA [facility] 08-04-2023 Note [id number] [facility] 08-03-2023 Note HPI Staff Jenny is a 52 year old female presenting to establish care/medical clearance Establish Care: History: Any previous diagnosis: anxiety, urethral stenosis History of seeing any specialist: urologist When was your last doctors visit: 2 or more years ago Last provider: [facility] [place] Any recent labs: TB Dr vu ordered Health Maintenance UTD: Colonoscopy: [id number] normal [facility] Dr Ovalles Mammogram: Dr Barriga 4 years ago normal Pelvic/Pap: over a year ago normal Acute: Current issues/complaints: pt states she use to take Metoprolol 25mg but hasn't had this medication over a long time. History of Present Illness pt presents today for BP check. to establish care Review of Systems ROS - Provider Constitutional: no fever, no chills, no sweats, yes fatigue Respiratory: no shortness of breath, no cough, no orthopnea, no wheezing. Cardiovascular: no chest pain, no palpitations, no edema. Neurologic: yes headache, no dizziness, no numbness, no weakness. Physical Exam Vitals & Measurements HR: 78(Peripheral) RR: 18 BP: 158/118 HT: 63 in HT: 160 cm WT: 69.95 kg WT: 153.89 lb BMI: 27.32 General: alert, no acute distress ENMT: oral mucosa moist, no pharyngeal erythema or exudate Cardiovascular: regular rate and rhythm, normal peripheral perfusion Respiratory: Lungs CTA, respirations non labored Extremities: no deformity, no trauma Neurological: oriented x 4, LOC appropriate for age, CN II-XII intact, motor strength equal & normal bilaterally, speech normal Assessment/Plan 1. Hypertension (I10: Essential (primary) hypertension) pt was previously on lisinopril, metoprolol and HCTZ. but has not taken any meds in many years. pt states she has headaches and gets flushed feeling all the time. will strat amlodipine. will order BP cuff. pt to bring BP log in 4 weeks. all questions answered. 2. BMI 27.0-27.9,adult (Z68.27: Body mass index [BMI] 27.0-27.9, adult) bmi education Ordered: amlodipine, 5 mg = 1 tab(s), Oral, Daily, # 30 tab(s), Refills(s) 1, Pharmacy: [facility] #[id number], 160, cm, 08/03/23 14:08:00 EST, Height/Length Dosing, 70, kg, 08/03/23 14:08:00 EST, Weight Dosing Misc Prescription, automatic blood pressure monitor, See Instructions, 1 EA, 0, check BP 1-2 hours after taking medication, [facility] #[id number], Supply, 160, cm, 08/03/23 14:08:00 EST, Height/Length Dosing, 70, kg, 08/03/23 14:08:00 EST, Weight Dosing 3. Non-smoker (Z78.9: Other specified health status) continue not smoking Ordered: amlodipine, 5 mg = 1 tab(s), Oral, Daily, # 30 tab(s), Refills(s) 1, Pharmacy: [facility] #[id number], 160, cm, 08/03/23 14:08:00 EST, Height/Length Dosing, 70, kg, 08/03/23 14:08:00 EST, Weight Dosing Misc Prescription, automatic blood pressure monitor, See Instructions, 1 EA, 0, check BP 1-2 hours after taking medication, [facility] #[id number], Supply, 160, cm, 08/03/23 14:08:00 EST, Height/Length Dosing, 70, kg, 08/03/23 14:08:00 EST, Weight Dosing Follow-up No qualifying data available Problem List/Past Medical History Ongoing Anxiety Hypertension Urethral meatal stenosis Historical Hypertension Procedure/Surgical History Cystourethroscopy with dilation of urethral stricture (02/28/2022), Laparoscopic oophorectomy (02/28/2022), delivery, Cholecystectomy, Hysterectomy, Tubal ligation. Medications amLODIPine 5 mg Tab, 5 mg= 1 tab(s), Oral, Daily, 1 refills automatic blood pressure monitor, See Instructions Estrace 0.1 mg/g Cream, 1 gm, Vaginal, MonFri, 3 refills Allergies No Known Medication Allergies Social History Tobacco Never (less than 100 in lifetime) Tobacco Use:. Never Smokeless Tobacco Use:. Household tobacco concerns: No., 08/03/2023 Family History Hypertension: Mother. [facility] Comment on above: Result Comment: Elec tronically Signed By: Anamaria Kelley\.br\Date and Time Signed: 08/03/23 15:31 EST 12-02-2022 Hospital Discharge instructions Follow Up Care 12/02/2022 12:12:52 With:JANIYA CASTELLANO, Derrick Mays, URL Address: [facility] [address] , [place] [address]- [phone] When: Unknown [facility] [place] 12-02-2022 Hospital Discharge instructions Patient Education 12/02/2022 11:38:40 Urethral Stricture Urethral Stricture Urethral stricture is narrowing of the tube (urethra) that carries urine from the bladder out of the body. The urethra can become narrow due to scar tissue from an injury or infection. This can make it difficult to pass urine. In women, the urethra opens above the vaginal opening. In men, the urethra opens at the tip of the penis, and the urethra is much longer than it is in women. Because of the length of the male urethra, urethral stricture is much more common in men. This condition is treated with surgery. What are the causes? In both men and women, common causes of urethral stricture include: Urinary tract infection (UTI). Sexually transmitted infection (STI). Use of a tube placed into the urethra to drain urine from the bladder (urinary catheter). Urinary tract surgery. In men, common causes of urethral stricture include: A severe injury to the pelvis. Prostate surgery. Injury to the penis. In many cases, the cause of urethral stricture is not known. What increases the risk? You are more likely to develop this condition if you: Are male. Men who have had prostate surgery are at risk of developing this condition. Use a urinary catheter. Have had urinary tract surgery. What are the signs or symptoms? The main symptom of this condition is difficulty passing urine. This may cause decreased urine flow, dribbling, or spraying of urine. Other symptom of this condition may include: Frequent UTIs. Blood in the urine. Pain when urinating. Swelling of the penis in men. Inability to pass urine (urinary obstruction). How is this diagnosed? This condition may be diagnosed based on: Your medical history and a physical exam. Urine tests to check for infection or bleeding. X-rays. Ultrasound. Retrograde urethrogram. This is a type of test in which dye is injected into the urethra and then an X-ray is taken. Urethroscopy. This is when a thin tube with a light and camera on the end (urethroscope) is used to look at the urethra. How is this treated? This condition is treated with surgery. The type of surgery that you have depends on the severity of your condition. You may have: Urethral dilation. In this procedure, the narrow part of the urethra is stretched open (dilated) with dilating instruments or a small balloon. Urethrotomy. In this procedure, a urethroscope is placed into the urethra, and the narrow part of the urethra is cut open with a surgical blade inserted through the urethroscope. Open surgery. In this procedure, an incision is made in the urethra, the narrow part is removed, and the urethra is reconstructed. Follow these instructions at home: Take bqhb-opd-tulqlea and prescription medicines only as told by your health care provider. If you were prescribed an antibiotic medicine, take it as told by your health care provider. Do not stop taking the antibiotic even if you start to feel better. Drink enough fluid to keep your urine pale yellow. Keep all follow-up visits as told by your health care provider. This is important. Contact a health care provider if: You have signs of a urinary tract infection, such as: ?Frequent urination or passing small amounts of urine frequently. ?Needing to urinate urgently. ?Pain or burning with urination. ?Urine that smells bad or unusual. ?Cloudy urine. ?Pain in the lower abdomen or back. ?Trouble urinating. ?Blood in the urine. ?Vomiting or being less hungry than normal. ?Diarrhea or abdominal pain. ?Vaginal discharge, if you are female. Your symptoms are getting worse instead of better. Get help right away if: You cannot pass urine. You have a fever. You have swelling, bruising, or discoloration of your genital area. This includes the penis, scrotum, and inner thighs for men, and the outer genital organs (vulva) and inner thighs for women. You develop swelling in your legs. You have difficulty breathing. Summary Urethral stricture is narrowing of the tube (urethra) that carries urine from the bladder out of the body. The urethra can become narrow due to scar tissue from an injury or infection. This condition can make it difficult to pass urine. This condition is treated with surgery. The type of surgery that you have depends on the severity of your condition. Contact a health care provider if your symptoms get worse or you have signs of a urinary tract infection. This information is not intended to replace advice given to you by your health care provider. Make sure you discuss any questions you have with your health care provider. Document Released: 10/07/2016 Document Revised: 04/24/2019 Document Reviewed: 04/24/2019 [employer] Patient Education 2020 [employer]. Follow Up Care 09/13/2022 09:27:49 With:JANIYA CASTELLANO, Derrick Mays, URL Address: [address] [place] [address] [place] [address]- When: Unknown [facility] [place] 09-05-2022 Hospital Discharge instructions Patient Education 09/05/2022 08:38:44 Dietary Guidelines to Help Prevent Kidney Stones Dietary Guidelines to Help Prevent Kidney Stones Kidney stones are deposits of minerals and salts that form inside your kidneys. Your risk of developing kidney stones may be greater depending on your diet, your lifestyle, the medicines you take, and whether you have certain medical conditions. Most people can reduce their chances of developing kidney stones by following the instructions below. Depending on your overall health and the type of kidney stones you tend to develop, your dietitian may give you more specific instructions. What are tips for following this plan? Reading food labels Choose foods with no salt added or low-salt labels. Limit your sodium intake to less than 1500 mg per day. Choose foods with calcium for each meal and snack. Try to eat about 300 mg of calcium at each meal. Foods that contain 200 500 mg of calcium per serving include: ?8 oz (237 ml) of milk, fortified nondairy milk, and fortified fruit juice. ?8 oz (237 ml) of kefir, yogurt, and soy yogurt. ?4 oz (118 ml) of tofu. ?1 oz of cheese. ?1 cup (300 g) of dried figs. ?1 cup (91 g) of cooked broccoli. ?1 3 oz can of sardines or mackerel. Most people need 1000 to 1500 mg of calcium each day. Talk to your dietitian about how much calcium is recommended for you. Shopping Buy plenty of fresh fruits and vegetables. Most people do not need to avoid fruits and vegetables, even if they contain nutrients that may contribute to kidney stones. When shopping for convenience foods, choose: ?Whole pieces of fruit. ?Premade salads with dressing on the side. ?Low-fat fruit and yogurt smoothies. Avoid buying frozen meals or prepared deli foods. Look for foods with live cultures, such as yogurt and kefir. Cooking Do not add salt to food when cooking. Place a salt shaker on the table and allow each person to add his or her own salt to taste. Use vegetable protein, such as beans, textured vegetable protein (TVP), or tofu instead of meat in pasta, casseroles, and soups. Meal planning Eat less salt, if told by your dietitian. To do this: ?Avoid eating processed or premade food. ?Avoid eating fast food. Eat less animal protein, including cheese, meat, poultry, or fish, if told by your dietitian. To do this: ?Limit the number of times you have meat, poultry, fish, or cheese each week. Eat a diet free of meat at least 2 days a week. ?Eat only one serving each day of meat, poultry, fish, or seafood. ?When you prepare animal protein, cut pieces into small portion sizes. For most meat and fish, one serving is about the size of one deck of cards. Eat at least 5 servings of fresh fruits and vegetables each day. To do this: ?Keep fruits and vegetables on hand for snacks. ?Eat 1 piece of fruit or a handful of berries with breakfast. ?Have a salad and fruit at lunch. ?Have two kinds of vegetables at dinner. Limit foods that are high in a substance called oxalate. These include: ?Spinach. ?Rhubarb. ?Beets. ?Potato chips and armenian fries. ?Nuts. If you regularly take a diuretic medicine, make sure to eat at least 1 2 fruits or vegetables high in potassium each day. These include: ?Avocado. ?Banana. ?[place], prune, carrot, or tomato juice. ?Baked potato. ?Cabbage. ?Beans and split peas. General instructions Drink enough fluid to keep your urine clear or pale yellow. This is the most important thing you can do. Talk to your health care provider and dietitian about taking daily supplements. Depending on your health and the cause of your kidney stones, you may be advised: ?Not to take supplements with vitamin C. ?To take a calcium supplement. ?To take a daily probiotic supplement. ?To take other supplements such as magnesium, fish oil, or vitamin B6. Take all medicines and supplements as told by your health care provider. Limit alcohol intake to no more than 1 drink a day for non women and 2 drinks a day for men. One drink equals 12 oz of beer, 5 oz of wine, or 1 oz of hard liquor. Lose weight if told by your health care provider. Work with your dietitian to find strategies and an eating plan that works best for you. What foods are not recommended? Limit your intake of the following foods, or as told by your dietitian. Talk to your dietitian about specific foods you should avoid based on the type of kidney stones and your overall health. Grains Breads. Bagels. Rolls. Baked goods. Salted crackers. Cereal. Pasta. Vegetables Spinach. Rhubarb. Beets. Canned vegetables. Pickles. Olives. Meats and other protein foods Nuts. Nut butters. Large portions of meat, poultry, or fish. Salted or cured meats. Deli meats. Hot dogs. Sausages. Dairy Cheese. Beverages Regular soft drinks. Regular vegetable juice. Seasonings and other foods Seasoning blends with salt. Salad dressings. Canned soups. Soy sauce. Ketchup. Barbecue sauce. Canned pasta sauce. Casseroles. Pizza. Lasagna. Frozen meals. Potato chips. [place] Rican fries. Summary You can reduce your risk of kidney stones by making changes to your diet. The most important thing you can do is drink enough fluid. You should drink enough fluid to keep your urine clear or pale yellow. Ask your health care provider or dietitian how much protein from animal sources you should eat each day, and also how much salt and calcium you should have each day. This information is not intended to replace advice given to you by your health care provider. Make sure you discuss any questions you have with your health care provider. Document Released: 01/06/2012 Document Revised: 01/01/2020 Document Reviewed: 08/22/2017 [employer] Patient Education 2020 pMDsoft. Follow Up Care 08/15/2022 11:18:43 With:JANIYA CASTELLANO, Derrick Mays, URL Address: [facility] [address], [place] [address]- When: Unknown [facility] 02-28-2022 Note [facility] [place], [place] NAME: JENNY FRANCO DATE OF : MEDICAL REC#: [id number] WOODWORKING MACHINIST: 1602 UMER MALONEY ADMIT DATE: 02/28/2022 06:15:00 BAGGING SALVAGER DATE: 03/18/2022 00:36 DICTATING PHYSICIAN: MICKEY BARRIGA DICTATION DATE: 03/17/2022 11:38 OPERATIVE NOTE OPERATION DATE: 03/17/2022 PROCEDURE: Diagnostic laparoscopy, lysis of adhesions, left salpingo-oophorectomy. Please note: Urethral dilation and cystoscopy, bilateral urethral cath placement by Dr. Vu prior to procedure. PREOPERATIVE DIAGNOSIS: Pelvic pain. POSTOPERATIVE DIAGNOSIS: Pelvic pain. ANESTHESIA: General. SURGEON: Mickey Barriga D.O. NONDESTRUCTIVE TESTER: CELY Davenport URINE OUTPUT: Yellow and clear. SPECIMEN: Left tube and ovary. FINDINGS: Absent uterus, left fallopian tube showing hydrosalpinx, significant adhesions of the left ovary to the pelvic side wall, right ovary with normal appearance with adhesions to the anterior abdominal wall. BLOOD LOSS: 10 mL. PROCEDURE: The patient was taken back to the Operating Room where she was placed in dorsal lithotomy position after given general anesthesia. The patient was prepped and draped in normal sterile fashion. A sponge stick was placed into the patient's vagina. Attention was turned to the patient's abdomen, where a small umbilical incision was made. The fascia was tented using Justin clamps and the fascia was entered sharply. Confirmation of intra-abdominal placement of the 10 mm port was confirmed under direct visualization using a laparoscope. The patient's abdomen was then insufflated using CO2 gas with approximately 4 liters. A second and third port was placed right and left laterally, this was done under direct visualization with a 5 mm port. Survey of the patient's abdomen demonstrated normal liver and gallbladder. Survey of the patient's pelvic anatomy demonstrated absent uterus, lt fallopian tube hydrosalpingx, significant adhesions of lt ovary to pelvic side wall, rt ovary with normal appearance however adhered to anterior abdominal wall. Please note the ligasure was used to transect and ligate the lt tube and ovary after careful dissection, THe tube and ovary was removed using the enodcatch. excellent hemostasis was noted No endometrial implants could be noted, no evidence of any pelvic disease was seen, normal appearing pelvic cavity. All instruments were removed from the patient's abdomen. The patient's abdomen was desufflated of CO2 gas. The patient tolerated the procedure well. Sponge stick was removed from the patient's vagina. The patient's infraumbilical fascia was closed using #0 Vicryl on a GI needle. The patient's skin was closed laterally and infraumbilically using 4-0 Vicryl. The patient tolerated the procedure well. Sponge, lap and needle counts were correct x 2. The patient was taken to Recovery Room in stable condition. Electronically Authenticated and Edited by: Mickey Barriga DO on 03/20/2022 10:46 AM EDT IF Signed and Approved by: DR MICKEY BARRIGA . 03/20/2022 10:46:00 [facility] Evaluation + Plan note No data available for this section [facility] Evaluation + Plan note Future Appointments Appointment Date:06/05/2023 10:45:00 AM Scheduled Provider:Derrick VU MD Location:[facility] Appointment Type:URO Office Visit [facility] Evaluation + Plan note Future Appointments Appointment Date:08/08/2023 09:00:00 AM Scheduled Provider: Location:[facility] Appointment Type:FM Nurse Visit Appointment Date:08/31/2023 01:20:00 PM Scheduled Provider:Anamaria Kelley Location:[facility] Appointment Type:FM Open [facility] Evaluation + Plan note Future Appointments Appointment Date:10/27/2023 10:00:00 AM Scheduled Provider:Adrian Fuentes MD Location[facility] Appointment Type:Cardiology Follow Up (FT) Appointment Date:12/21/2023 10:00:00 AM Scheduled Provider:Anamaria Kelley Location:[facility] Appointment Type: Open Future Scheduled TestsEcho Transthoracic Complete 09/14/23ECG Stress Exercise 09/14/23 [facility] Evaluation + Plan note Future Appointments Appointment Date:10/27/2023 10:00:00 AM Scheduled Provider:Adrian Fuentes MD Location[facility] Appointment Type:Cardiology Follow Up (FT) Appointment Date:12/21/2023 10:00:00 AM Scheduled Provider:Anamaria Kelley Location:[facility] Appointment Type:[facility] Hospital Discharge instructions No data available for this section [facility] note No data available for this section [facility] Summary Purpose Family History No Family History Records Found No data available for this section No data available for this section No data available for this section No data available for this section No Family History Records Found Advance Directives No Advanced Directives Records FoundNo Advanced Directives Records Found Additional Source Comments Patient Care team informatio n (unrecognized section and content) Personnel Name: Mickey BARRIGA DO Address: Address: [address] , [place] [address] Personnel Name: Mickey BARRIGA DO Address: Address: [address] , [place] [address] Personnel Name: Anamaria Kelley Address: Address: [address] [place] [address]- Personnel Name: Anamaria Kelley Address: Address: [address] [place] [address]- Personnel Name: Anamaria Kelley Address: Address: [address] [place] [address]- Personnel Name: Anamaria Kelley Address: Address: [address] [place] [address]- INFORMATION SOURCE (unrecogn ized section and content) DATE CREATED AUTHOR 09/22/2022 [facility] [place] [facility] DATE CREATED AUTHOR 'S GIUSEPPE BYERS 03/04/2024 [facility] FOR RECORDS PERTAINING TO PATIENTS WHO ARE OR HAVE BEEN ENROLLED IN A CHEMICAL DEPENDENCY/SUBSTANCEABUSE PROGRAM, SOME INFORMATION MAY BE OMITTED. This clinical summary was aggregated from multiple sources. Caution should be exercised in using it in the provision of clinical care. This summary normalizes information from multiple sources, and as a consequence, information in this document may materially change the coding, format and clinical context of patient data. In addition, data may be omitted in some cases. CLINICAL DECISIONS SHOULD BE BASED ON THE PRIMARY CLINICAL RECORDS. [facility] [employer] [facility]. provides no warranty or guarantee of the accuracy or completeness of information in this document.
[2024-06-28 14:47] VITALS: BP 162/105; PULSE 102; TEMP 36.9; O2SAT 100; BMI 28.9
--- NOTE | 2024-06-28 15:05 | ED_ITS ---
HPI - URI/Sore Throat General Chief Complaint: Upper Respiratory Infection Stated Complaint: HEAD CONGESTION Time Seen by Provider: 06/28/24 14:52 Source: patient Limitations: no limitations History of Present Illness HPI Narrative: 53 year old female presents to the ED for sinus congestion/drainage/pressure, cough, ear pain. Onset was 4 days ago. Denies fever, SOB, N/V/D. Reports chills. Related Data Home Medications ?Medication ?Instructions ?Recorded ?Confirmed amlodipine 10 mg tablet 10 mg PO QDAY 06/28/24 06/28/24 metoprolol tartrate 25 mg tablet 25 mg PO DAILY 06/28/24 06/28/24 Allergies Allergy/AdvReac Type Severity Reaction Status Date / Time No Known Drug Allergies Allergy Verified 06/28/24 14:44 Review of Systems ROS Constitutional Reports: chills; Denies: fever Ears, nose, mouth, and throat Reports: ear pain, nasal discharge and nasal congestion; Denies: throat pain, neck pain or ear discharge Cardiovascular Denies: chest pain Respiratory Reports: cough; Denies: shortness of breath Gastrointestinal Denies: abdominal pain, nausea, vomiting or diarrhea Musculoskeletal Denies: back pain or neck pain Neurological Denies: headache PFSH PFSH Medical History (Updated 06/28/24 @ 15:37 by Marsha Lynn) Urethral stricture due to and not concurrent with procedure Hypertension ?I10 - Essential (primary) hypertension (ICD-10) Surgical History (Updated 08/01/23 @ 10:37 by Audrey James NP) History of section ?Z98.891 - History of uterine scar from previous surgery (ICD-10) History of tubal ligation ?Z98.51 - Tubal ligation status (ICD-10) History of cholecystectomy ?Z90.49 - Acquired absence of other specified parts of digestive tract (ICD- 10) S/P cystourethroscopy with dilation of urethral stricture ?Z98.890 - Other specified postprocedural states (ICD-10) History of hysterectomy ?Z90.710 - Acquired absence of both cervix and uterus (ICD-10) Family History (Updated 08/01/23 @ 10:37 by Audrey James NP) Other Family history of gastric cancer Family history of hypertension Family history of lung cancer Social History (Updated 08/10/23 @ 08:06 by Rox Ayala) Within the past year, how often did you have a drink containing alcohol: m onthly or less Smoking status: Never smoker Non-prescribed substance use: denies use Highest level of school completed/degree received: high school graduate Little interest or pleasure in doing things: not at all Feeling down, depressed, or hopeless: not at all Exam Constitutional Vital Signs, click to edit/add: Last Vital Signs Temp 98.5 F 06/28/24 14:47 Pulse 102 H 06/28/24 14:47 Resp 16 06/28/24 14:47 BP 162/105 H 06/28/24 14:47 Pulse Ox 100 06/28/24 14:47 O2 Del Method Room Air 06/28/24 14:47 Common normals: no apparent distress and oriented x3 General appearance: cooperative HENMT Common normals: normocephalic Face and sinus: normal facial exam Nose: nasal discharge External ear: external ears normal External auditory canal: EACs normal Tympanic membrane: TMs normal bilaterally Mouth: oral and palatal mucosa normal, lip normal and tongue normal Throat: posterior oropharynx normal and uvula midline Eye Common normals: conjunctivae normal and no scleral icterus Neck & C-Spine Common normals: supple Chest Chest: symmetrical chest wall rise Respiratory Common normals: normal respiratory effort, no use of accessory muscles and clear to auscultation bilaterally Effort & inspection: able to speak in complete sentences and symmetric chest movement Cardio Common normals: regular rate and regular rhythm Neuro Common normals: oriented x3 and moves all extremities Sensorium/orientation: awake and alert Course Vital Signs Vital signs: Vital Signs Temperature 98.5 F 06/28/24 14:47 Pulse Rate 102 H 06/28/24 14:47 Respiratory Rate 16 06/28/24 14:47 Blood Pressure 162/105 H 06/28/24 14:47 Pulse Oximetry 100 06/28/24 14:47 Oxygen Delivery Method Room Air 06/28/24 14:47 Temperature 98.5 F 06/28/24 14:47 Pulse Rate 102 H 06/28/24 14:47 Respiratory Rate 16 06/28/24 14:47 Blood Pressure 162/105 H 06/28/24 14:47 Pulse Oximetry 100 06/28/24 14:47 Oxygen Delivery Method Room Air 06/28/24 14:47 MDM - URI/Sore Throat MDM Narrative Medical decision making narrative: Covid-19 was positive. Influenza was negative. Findings were discussed. Follow up with pcp for a recheck, further evaluation and treatment. Differential Diagnosis Differential diagnosis: Likely upper respiratory infection, viral infection and influenza Medical Records Attestation: I reviewed the patient's medical records. Lab Data Attestation: I reviewed the patient's lab results. Labs: Lab Results 06/28/24 Range/Units 15:10 Influenza Type A Ag Negative Influenza Type B Ag Negative SARS-CoV-2 Ag (CV2AG) Positive A (NEGATIVE) Discharge Plan Discharge Chief Complaint: Upper Respiratory Infection Clinical Impression: COVID-19 Patient Disposition: Home, Self-Care Time of Disposition Decision: 15:56 Condition: Good Mode of Transportation: Private Vehicle Prescriptions / Home Meds: No Action amlodipine 10 mg tablet 10 mg PO QDAY metoprolol tartrate 25 mg tablet 25 mg PO DAILY Print Language: Macedonian Instructions: COVID-19 (Coronavirus Disease 2019) (ED), How to Recover from COVID-19 at Home (ED) Additional Instructions: Return to the ER for new or worsening symptoms. Referrals: HARRIET MANCERA [Primary Care Provider] - 1 week
[2024-06-28 15:31] LABS: Influenza Virus A Antigen Negative; Influenza Virus B Antigen Negative; Internal Control Within Normal Limits; SARS-CoV-2 Ag POSITIVE (NEGATIVE)
[2024-06-28 15:48] VITALS: BP 164/111; PULSE 16; TEMP 37.2; O2SAT 99
== END 2024-06-28 15:45 | disposition home or self-care (01) ==
PROVIDERS: Nurse Practitioner Family; Emergency Provider Emergency Medicine; PCP Nurse Practitioner
DX: U07.1 COVID-19 (principal)
CPT/HCPCS: 87804; 87811; 99283

== ENCOUNTER 2025-06-22 17:52 | Emergency (ER) | payer MEDICAID, SELFPAY ==
--- OUTSIDE RECORDS SUMMARY | 2025-06-19 13:20 | XMS_ITS ---
Author Name Auto Generated Organization OHIP Care Team Providers Care Tunneling Machine Operator Name Role Phone Laron Parrish Attending Unavailable Laron Parrish Admitting Unavailable NON STAFF Primary Care Unavailable Calderon, CONTRACTS OFFICER Anamaria L Attending Unavailable Calderon, CONTRACTS OFFICER Anamaria L Attending Unavailable Calderon, CONTRACTS OFFICER Anamaria L Attending Unavailable Calderon, CONTRACTS OFFICER Anamaria L Attending Unavailable Calderon, CONTRACTS OFFICER Anamaria L Attending Unavailable Calderon, CONTRACTS OFFICER Anamaria L Attending Unavailable Calderon, CONTRACTS OFFICER Anamaria L Attending Unavailable MELI LORENZ Primary Care Unavailable GIORGI THOMPSON Attending Unavailable MELI LORENZ Primary Care Unavailable CALDERONANAMARIA Referring Unavailable CALDERON, ANAMARIA Erich Primary Care Unavailable RUFUS FALCON Attending Unavailable ISAIAH AVILES Attending Unavailable CALDERON, ANAMARIA Erich Referring Unavailable CALDERON, ANAMARIA L Primary Care Unavailable PROBLEMS DATE TYPE CONDITION / CODE ATTENDING STATUS [facility] 04/10/2025 Active AF (paroxysmal a trial fibrillation) ([facility]) / I48.0(ICD-10) GIORGI THOMPSON Active [facility] 04/10/2025 Active Atrial fibrillat ion, unspecified type (HCC) / I48.91(ICD-10) GIORGI THOMPSON Active [facility] 04/10/2025 Active Atrial fibrillat ion, currently in sinus rhythm / Z86.79(ICD-10) NA Active [facility] 04/08/2025 Unknown New Patient / FREETEXT(AOF) ISAIAH AVILES [facility] 04/24/2019 Unknown Essential (prima ry) hypertension / I10(ICD-10) FALCON, [facility] 02/16/2025 Unknown Syncope and ramon apse / R55(ICD-10) FALCON, [facility] 02/16/2025 Unknown Syncope / FREETEXT(AOF) FALCON, [facility] 02/16/2025 Unknown Weakness / UNK(Unknown) FALCON, [facility] 09/17/2024 Unknown Palpitations / R00.2(ICD-10) Laron Parrish Active [facility] PROCEDURES No Procedure Records Found RESULTS ECG COMPLETE Observed: 04/10/2025 2:02 PM Status: F Source: [facility] Ventricular Rate : 67 BPM Atrial Rate : 67 BPM P-R Interval : 130 ms QRS Duration : 82 ms Q-T Interval : 398 ms QTC Calculation(Bazett) : 420 ms Calculated P Mio : 42 degrees Calculated R Mio : -9 degrees Calculated T Mio : 5 degrees NORMAL SINUS RHYTHM WITH SINUS ARRHYTHMIA NORMAL ECG Confirmed by YONI MCGUIRE MD ([id number]) on 05/28/2025 10:14:52 PM NAME : JENNY FRANCO PID : [id number] : 1970 Gender : Female Race : ORD : [id number] Procedure Date : Apr 10 2025 14:02:40 Edit Date : May 28 2025 22:14:56 Diagnosis: NORMAL SINUS RHYTHM WITH SINUS ARRHYTHMIA NORMAL ECG Confirmed by YONI MCGUIRE MD ([id number]) on 05/28/2025 10:14:52 PM Test Reason : Location : 314 : J14 J1-4 Overread By : YONI MCGUIRE MD Edited By : YONI MCGUIRE MD Referred By : , Acquired by : NICOLETTE HERNANDEZ PROGRESS Observed: 04/10/2025 2:00 PM Status: COMPLETED Source: [facility] HNO ID: [id number] Author: GIORGI THOMPSON MD Service: ? Author Type: Physician Type: Progress Notes Filed: 04/10/2025 15:03 Note Text: [facility] Department of Cardiovascular Medicine SECTION OF CARDIAC PACING and ELECTROPHYSIOLOGY OUTPATIENT VISIT DATE April 10, 2025 OUTPATIENT VISIT TYPE CONSULTATION PRIMARY CARE PHYSICIAN: Meli Lorenz MD [address] [place] [address] REFERRING PHYSICIAN Anamaria Mancera [address] [place] [id number] CHIEF COMPLAINT: AF HISTORY OF PRESENT ILLNESS/NURSING INTAKE HISTORY: Cardiac consultation at the request of Dr. Anamaria Mancera.A copy of this consultation note will be provided to the requesting physician by way of shared Medical record or letter to requesting physician via US mail. Ms. Franco is a 54 year old female who is seen today for paroxysmal atrial fibrillation. She has a past medical history of hypertension, NSTEMI, anomalous RCA, and paroxysmal atrial fibrillation. She states she was diagnosed with atrial fibrillation roughly eight years ago. She has been medically managed since that time. She denies prior DCC nor AAD use. She reports infrequent episodes over the years but has recently had an increase in the duration of her episodes as well as more prominent symptoms. She reports two ED visits in the past year occurring in August and January. On these two occasions her episodes lasted longer than her average. Overall her episodes are generally infrequent in nature lasting minutes in duration. She associates Shortness of Breath, chest discomfort and tingling/numbness with her episodes. She presents today to further review her arrhythmia. CHADS2-Vasc Score Breakdown 2 Total Score 1 Female 1 History of hypertension PAST MEDICAL HISTORY Diagnosis Date A-fib (HCC) Hypertension Pelvic pain PAST SURGICAL HISTORY Procedure Laterality Date CHOLECYSTECTOMY HYSTERECTOMY HX LAPAROSCOPY DIAGNOSTIC S KIT DANDC HYSTEROSCOPY CARDINAL TUBAL LIGATION HX SOCIAL HISTORY Social History Tobacco Use Smoking status: Never Smokeless tobacco: Never Substance Use Topics Alcohol use: No Drug use: No FAMILY HISTORY Problem Relation Age of Onset Cancer Mother Cancer Father No Known Problems Sister ALLERGIES: ALLERGIES No Known Allergies MEDICATIONS: PARoxetine (PAXIL) 20 mg tablet Take 20 mg by mouth once daily. losartan (COZAAR) 100 mg tablet Take 100 mg by mouth once daily. amLODIPine (NORVASC) 10 mg tablet Take 10 mg by mouth once daily. lisinopril (ZESTRIL, PRINIVIL) 10 mg tablet Take 10 mg by mouth once daily. REVIEW OF SYSTEMS: GENERAL: Negative for: Weight loss or gain, Fever or Chills, Weakness and Sleep difficulties. HEENT: Positive for:Dentures NECK: Negative for: Swelling, Pain, Stiffness RESPIRATORY: Negative for: Cough, Blood in Sputum, Shortness of breath, Wheezing, Apnea GASTROINTESTINAL: Negative for: Trouble swallowing, Heartburn, Change in bowel habits, Blood in stool, Dark black stools MUSCULOSKELETAL: Negtive for: Muscle or joint pain, stiffness, Joint swelling NEUROLOGIC/PSYCHIATRIC: Negative for: Weakness, Paralysis, Numbness, Tingling, Tremor, Nervousness or anxiety, Depressed mood, Memory loss SKIN: Negative for: Rash, Itching HEMATOLOGICAL/LYMPHATIC: Negative for: Easy bruising, Easy bleeding ENDOCRINE: Negative for: Heat or Cold Intolerance, Excessive Sweating, Frequent Urination, Frequent Thirst Muriel Zarate RN PHYSICAL EXAMINATION: BP 126/68 Pulse 67 Ht 160 cm (5' 3 ) Wt 69.9 kg (154 lb) BMI 27.28 kg/m? General: Well appearing, in no acute distress, speaking in complete sentences. Lungs: Clear to auscultation bilaterally, no wheezing or rhonchi. Heart: Regular rhythm, PMI not displaced, S1, S2 normal, no S3, no S4, no heaves, no rub and no murmur. CARDIOVASCULAR MEDICINE TESTING: EKG today: CT Angiogram: 12/25/20 IMPRESSION: 1. 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 The aberrant right coronary artery courses between the junction of the superior aspect of the right ventricle and pulmonary outflow tract and the aorta. There is no associated mass effect on or narrowing of the right coronary artery. 2. Otherwise normal CTA of the coronary arteries. 3. Trace pericardial fluid. Cardiac Cath: 08/20/2020 Conclusion: Coronaries with angiographically mild luminal irregularities Anomalous RCA with very high take off from the aorta rather than the cusps closer to the left cusp rather than the right LVEDP 11 mmHg Hypertension Nuclear Stress Test: 07/14/2020 Overall, the patient's functional capacity was average. The stress ECG was negative. The calculated Hui Treadmill Score of 6.87 represents a low risk only with regards to the exercise findings. Stress Function Comments: Left ventricular function post-stress is normal. Post-stress ejection fraction is 73 %. The stress end diastolic cavity size is normal. The stress end systolic cavity size is normal. Perfusion Comments: Left ventricular perfusion is normal. Based on the perfusion study data, risk of cardiovascular events is low risk. The study is normal. Echo: 07/13/2020 : Left Ventricle: Systolic function is normal with an ejection fraction of 60-65%. Left Ventricle: No segmental wall motion abnormalities. Left Ventricle: Normal diastolic function is present. Mitral Valve: Mitral valve structure is normal. Mitral Valve: There is mild to moderate regurgitation with a centrally directed jet. There is no evidence of mitral valve stenosis. Tricuspid Valve: There is mild to moderate regurgitation. There is no evidence of tricuspid valve stenosis. IMPRESSION: Ms. Franco is a 54 year old female who is seen today for paroxysmal atrial fibrillation. She has a past medical history of hypertension, NSTEMI, anomalous RCA, and paroxysmal atrial fibrillation. She states she was diagnosed with atrial fibrillation roughly eight years ago. She has been medically managed since that time. She denies prior DCC nor AAD use. She reports infrequent episodes over the years but has recently had an increase in the duration of her episodes as well as more prominent symptoms. She reports two ED visits in the past year occurring in August and January. However, the duration of AF is 10 minutes at maximum. Overall her episodes are generally infrequent in nature lasting minutes in duration. She associates Shortness of Breath, chest discomfort and tingling/numbness with her episodes, likely by hyperventilation. She presents today to further review her arrhythmia. Her AF is very sporadic anyway and the duration is very short, 10 mins at maximum. I recommended to treat her sleep apnea first. I do not recommend any medication as of now given the infrequency of her episodes. PLAN AND RECOMMENDATIONS: # Paroxysmal AF, CV score 2, short duration # HARMEET - Please see sleep doctor - 6 months follow-up I personally interviewed, confirmed and edited the above information as obtained by others. It was a pleasure contributing to this patient's medical care. I reviewed any prior outside records with the patient, obtained relevant HPI and PMH from the patient, examined the patient and created the above report. I spent over 70% of my time counseling the patient regarding my assessment and recommendations. Signature: GIORGI THOMPSON MD, PhD Department: Associate Staff, Department of Cardiac Electrophysiology DATE of SERVICE: 04/10/2025 TIME of SERVICE: 3:03 PM CNOV Observed: 04/10/2025 2:00 PM Status: COMPLETED Source: [facility] Office Visit (CARDMN) JENNY FRANCO ([id number]) 1970 F Date Time Provider Department 04/10/25 2:00 PM GIORGI THOMPSON During your visit today, we recorded the following information about you: Pulse Blood pressure Weight Height 67/minute 126/68 69.9 kg 1.6 m Giorgi Thompson MD 04/10/2025 3:03 PM [facility] Department of Cardiovascular Medicine SECTION OF CARDIAC PACING and ELECTROPHYSIOLOGY OUTPATIENT VISIT DATE April 10, 2025 OUTPATIENT VISIT TYPE CONSULTATION PRIMARY CARE PHYSICIAN: Meli Lorenz MD [address] [place] [address] REFERRING PHYSICIAN Anamaria Mancera [address] [place] [address] CHIEF COMPLAINT: AF HISTORY OF PRESENT ILLNESS/NURSING INTAKE HISTORY: Cardiac consultation at the request of Dr. Anamaria Mancera.A copy of this consultation note will be provided to the requesting physician by way of shared Medical record or letter to requesting physician via US mail. Ms. Franco is a 54 year old female who is seen today for paroxysmal atrial fibrillation. She has a past medical history of hypertension, NSTEMI, anomalous RCA, and paroxysmal atrial fibrillation. She states she was diagnosed with atrial fibrillation roughly eight years ago. She has been medically managed since that time. She denies prior DCC nor AAD use. She reports infrequent episodes over the years but has recently had an increase in the duration of her episodes as well as more prominent symptoms. She reports two ED visits in the past year occurring in August and January. On these two occasions her episodes lasted longer than her average. Overall her episodes are generally infrequent in nature lasting minutes in duration. She associates Shortness of Breath, chest discomfort and tingling/numbness with her episodes. She presents today to further review her arrhythmia. CHADS2-Vasc Score Breakdown 2 Total Score 1 Female 1 History of hypertension PAST MEDICAL HISTORY Diagnosis Date A-fib (HCC) Hypertension Pelvic pain PAST SURGICAL HISTORY Procedure Laterality Date CHOLECYSTECTOMY HYSTERECTOMY HX LAPAROSCOPY DIAGNOSTIC S KIT DANDC HYSTEROSCOPY CARDINAL TUBAL LIGATION HX SOCIAL HISTORY Social History Tobacco Use Smoking status: Never Smokeless tobacco: Never Substance Use Topics Alcohol use: No Drug use: No FAMILY HISTORY Problem Relation Age of Onset Cancer Mother Cancer Father No Known Problems Sister ALLERGIES: ALLERGIES No Known Allergies MEDICATIONS: PARoxetine (PAXIL) 20 mg tablet Take 20 mg by mouth once daily. losartan (COZAAR) 100 mg tablet Take 100 mg by mouth once daily. amLODIPine (NORVASC) 10 mg tablet Take 10 mg by mouth once daily. lisinopril (ZESTRIL, PRINIVIL) 10 mg tablet Take 10 mg by mouth once daily. REVIEW OF SYSTEMS: GENERAL: Negative for: Weight loss or gain, Fever or Chills, Weakness and Sleep difficulties. HEENT: Positive for:Dentures NECK: Negative for: Swelling, Pain, Stiffness RESPIRATORY: Negative for: Cough, Blood in Sputum, Shortness of breath, Wheezing, Apnea GASTROINTESTINAL: Negative for: Trouble swallowing, Heartburn, Change in bowel habits, Blood in stool, Dark black stools MUSCULOSKELETAL: Negtive for: Muscle or joint pain, stiffness, Joint swelling NEUROLOGIC/PSYCHIATRIC: Negative for: Weakness, Paralysis, Numbness, Tingling, Tremor, Nervousness or anxiety, Depressed mood, Memory loss SKIN: Negative for: Rash, Itching HEMATOLOGICAL/LYMPHATIC: Negative for: Easy bruising, Easy bleeding ENDOCRINE: Negative for: Heat or Cold Intolerance, Excessive Sweating, Frequent Urination, Frequent Thirst Muriel Zarate RN PHYSICAL EXAMINATION: BP 126/68 Pulse 67 Ht 160 cm (5' 3 ) Wt 69.9 kg (154 lb) BMI 27.28 kg/m? General: Well appearing, in no acute distress, speaking in complete sentences. Lungs: Clear to auscultation bilaterally, no wheezing or rhonchi. Heart: Regular rhythm, PMI not displaced, S1, S2 normal, no S3, no S4, no heaves, no rub and no murmur. CARDIOVASCULAR MEDICINE TESTING: EKG today: CT Angiogram: 12/25/20 IMPRESSION: 1. 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 The aberrant right coronary artery courses between the junction of the superior aspect of the right ventricle and pulmonary outflow tract and the aorta. There is no associated mass effect on or narrowing of the right coronary artery. 2. Otherwise normal CTA of the coronary arteries. 3. Trace pericardial fluid. Cardiac Cath: 08/20/2020 Conclusion: Coronaries with angiographically mild luminal irregularities Anomalous RCA with very high take off from the aorta rather than the cusps closer to the left cusp rather than the right LVEDP 11 mmHg Hypertension Nuclear Stress Test: 07/14/2020 Overall, the patient's functional capacity was average. The stress ECG was negative. The calculated Hui Treadmill Score of 6.87 represents a low risk only with regards to the exercise findings. Stress Function Comments: Left ventricular function post-stress is normal. Post-stress ejection fraction is 73 %. The stress end diastolic cavity size is normal. The stress end systolic cavity size is normal. Perfusion Comments: Left ventricular perfusion is normal. Based on the perfusion study data, risk of cardiovascular events is low risk. The study is normal. Echo: 07/13/2020 : Left Ventricle: Systolic function is normal with an ejection fraction of 60-65%. Left Ventricle: No segmental wall motion abnormalities. Left Ventricle: Normal diastolic function is present. Mitral Valve: Mitral valve structure is normal. Mitral Valve: There is mild to moderate regurgitation with a centrally directed jet. There is no evidence of mitral valve stenosis. Tricuspid Valve: There is mild to moderate regurgitation. There is no evidence of tricuspid valve stenosis. IMPRESSION: Ms. Franco is a 54 year old female who is seen today for paroxysmal atrial fibrillation. She has a past medical history of hypertension, NSTEMI, anomalous RCA, and paroxysmal atrial fibrillation. She states she was diagnosed with atrial fibrillation roughly eight years ago. She has been medically managed since that time. She denies prior DCC nor AAD use. She reports infrequent episodes over the years but has recently had an increase in the duration of her episodes as well as more prominent symptoms. She reports two ED visits in the past year occurring in August and January. However, the duration of AF is 10 minutes at maximum. Overall her episodes are generally infrequent in nature lasting minutes in duration. She associates Shortness of Breath, chest discomfort and tingling/numbness with her episodes, likely by hyperventilation. She presents today to further review her arrhythmia. Her AF is very sporadic anyway and the duration is very short, 10 mins at maximum. I recommended to treat her sleep apnea first. I do not recommend any medication as of now given the infrequency of her episodes. PLAN AND RECOMMENDATIONS: # Paroxysmal AF, CV score 2, short duration # HARMEET - Please see sleep doctor - 6 months follow-up I personally interviewed, confirmed and edited the above information as obtained by others. It was a pleasure contributing to this patient's medical care. I reviewed any prior outside records with the patient, obtained relevant HPI and PMH from the patient, examined the patient and created the above report. I spent over 70% of my time counseling the patient regarding my assessment and recommendations. Signature: GIORGI THOMPSON MD, PhD Department: Associate Staff, Department of Cardiac Electrophysiology DATE of SERVICE: 04/10/2025 TIME of SERVICE: 3:03 PM Referring Provider: ANAMARIA MANCERA [[id number]] Allergies As of Date: 04/10/2025 (No Known Allergies) Date Reviewed: 04/10/2025 Reviewed by: Muriel Zarate RN - Fully Assessed Reason for Visit: Atrial Fibrillation [513] Primary Visit Diagnosis:AF (paroxysmal atrial fibrillation) (HCC) [I48.0] Other Visit Diagnosis:Atrial fibrillation, unspecified type (HCC) [I48.91] Order(s):CONSULT TO CARDIOLOGY [9004] Order #: [id number]: 1 CARDIOVASCULAR MEDICINE OP FOLLOW UP APPT ORDER [[id number]] Order #: [id number]: 1 Prescriptions as of 04/10/2025 - PARoxetine (PAXIL) 20 mg tablet Take 20 mg by mouth once daily. - losartan (COZAAR) 100 mg tablet Take 100 mg by mouth once daily. - amLODIPine (NORVASC) 10 mg tablet Take 10 mg by mouth once daily. - lisinopril (ZESTRIL, PRINIVIL) 10 mg tablet Take 10 mg by mouth once daily. Problem List As Of Date: 04/10/2025 (None) Encounter Status:Closed by GIORGI THOMPSON on 04/10/25 CNPN Observed: 03/20/2025 12:00 AM Status: COMPLETED Source: [facility] Telephone (CARDMN) JENNY FRANCO ([id number]) 1970 F Date Time Provider Department 03/20/25 GIORGI THOMPSON CARDMN During your visit today, we recorded the following information about you: Nerissa Garcia 03/20/2025 8:41 AM Signed Received outside medical records, filed in [employer] scanned documents. Thank you, Nerissa Garcia, Admin Allergies As of Date: 03/20/2025 (No Known Allergies) Date Reviewed: 01/22/2017 Reviewed by: Mukesh Kunz - Fully Assessed Reason for Visit: Received Outside Medical Records [[id number]] Cmt: [facility] Prescriptions as of 03/20/2025 - losartan (COZAAR) 100 mg tablet Take 100 mg by mouth once daily. - amLODIPine (NORVASC) 10 mg tablet Take 10 mg by mouth once daily. - lisinopril (ZESTRIL, PRINIVIL) 10 mg tablet Take 10 mg by mouth once daily. Problem List As Of Date: 03/20/2025 (None) Encounter Status:Closed by NERISSA GARCIA on 03/20/25 AMBULATORY VISIT SUMMARY Observed: 03/19 1:20 PM Status: F Source: [facility] Ambulatory Visit Summary JENNY FRANCO :1970 Visit Date:03/19/2025 Ambulatory Visit Instructions Your Diagnosis Adult BMI 27.0-27.9 kg/sq m Overweight (BMI 25.0-29.9) Non-smoker Your Care Team Attending Physician - Anamaria Kelley Primary Care Physician - Calderon CONTRACTS OFFICER, Anamaria L This Is Your Medications List amlodipine (amLODIPine 10 mg Tab) bisoprolol-hydrochlorothiazide (bisoprolol-hydrochlorothiazide 10 mg-6.25 mg Tab) Procedures Performed Cystourethroscopy with dilation of urethral stricture (02/28/2022), Laparoscopic oophorectomy (02/28/2022), delivery, Cholecystectomy, Hysterectomy, Tubal ligation. Discharge Vitals Temperature (Temporal Artery) 36.5 ???C Heart Rate (Peripheral) 96 Respiratory Rate 18 Blood Pressure 118/72 Height 160.0 cm Height 63 in Weight 71.4 kg Weight 157.41 lb BMI 27.89 What to do next Scheduled Follow-Up Appointments 2024 1:20 PM EDT With: Anamaria Kelley Where: [address] [address]- Medications What How Much When Why Instructions Unchanged amlodipine (amLODIPine 10 mg Tab) 1 Tablets By Mouth Every day Hypertension Heart palpitations BMI 27.0-27.9,adult Non-smoker Duration: 90 Days Unchanged bisoprolol-hydrochlorothiazide (bisoprolol-hydrochlorothiazide 10 mg- 6.25 mg Tab) 1 Tablets By Mouth Every day Hypertension Heart palpitations BMI 27.0-27.9,adult Non-smoker Duration: 90 Days Allergies No Known Medication Allergies Problems Ongoing - Any problem that you are currently receiving treatment for. Adult BMI 27.0-27.9 kg/sq m Adult BMI 28.0-28.9 kg/sq m Anxiety Atrial fibrillation Atrial fibrillation, currently in sinus rhythm COVID-19 Heart palpitations Hospital discharge follow-up Hypertension Low back pain with left-sided sciatica Osteoarthritis of lumbosacral spine Spondylolisthesis at L5-S1 level Syncopal episodes Urethral meatal stenosis Historical - Any problem that you are no longer receiving treatment for. Hypertension Patient Survey You may receive a survey via text or e-mail asking about your office visit. Please share your experience with us by completing your survey. We appreciate your feedback and thank you for choosing us for your care. Patient Portal You may access all of your results and other medical record information on our secure patient portal. If you are not signed up for this yet, please contact [employer] at [phone] to get signed up today. Language Information Language assistance services are available as needed. FAMILY MEDICINE OFFICE/CLINI C NOTE Observed: 03/19/2025 1:20 PM Status: F Source: [facility] Medicine Office/Clini c Note HPI Staff Patient is presenting for 1 month follow up for anxiety Follow up for Mental Status: Medication adherence- Yes, takes medication as prescribed not taking meds Medication refill needed: _no Suicidal thoughts-Not at this time Most recent CLARE: 1 Most recent PHQ: 1 History of Present Illness pt presents today for follow up on anxiety/palpitations Review of Systems PHQ Score Initial Depression Screen Score: 1 SCORE Physical Exam Vitals & Measurements T: 36.5 ???C(Temporal Artery) HR: 96(Peripheral) RR: 18 BP: 118/72 SpO2: 96% HT: 63 in HT: 160.0 cm WT: 157.41 lb WT: 71.4 kg BMI: 27.89 General: alert, no acute distress ENMT: oral mucosa moist, no pharyngeal erythema or exudate Cardiovascular: regular rate and rhythm, normal peripheral perfusion Respiratory: Lungs CTA, respirations non labored Extremities: no deformity, no trauma Neurological: oriented x 4, LOC appropriate for age, CN II-XII intact, motor strength equal & normal bilaterally, speech normal Assessment/Plan 1. Hypertension (I10: Essential (primary) hypertension) BP WNL. will continue current meds. pt is scheduled to see cardiology at [facility] for further evaluation of the syncopal episodes. pt has been feeling good. but did leave her meds [place] another [place] by accident when she went on vacation. Ordered: amlodipine, 10 mg = 1 tab(s), Oral, Daily, X 90 day(s), # 90 tab(s), Refills(s) 3, Pharmacy: [facility], 160, cm, 01/08/25 14:37:00 EDT, Height/Length Dosing, 71.5, kg, 01/08/25 14:37:00 EDT, Weight Dosing amlodipine, 10 mg = 1 tab(s), Oral, Daily, X 90 day(s), # 90 tab(s), Refills(s) 3, Pharmacy: [facility], 160, cm, 03/19/25 13:39:00 EDT, Height/Length Dosing, 71.4, kg, 03/19/25 13:39:00 EDT, Weight Dosing bisoprolol-hydrochlorothiazide, 1 tab(s), Oral, Daily for 90 day(s), 90 tab(s), Refill(s) 3, [facility], 160, cm, 03/19/25 13:39:00 EDT, Height/Length Dosing, 71.4, kg, 03/19/25 13:39:00 EDT, Weight Dosing bisoprolol-hydrochlorothiazide, 1 tab(s), Oral, Daily for 90 day(s), 90 tab(s), Refill(s) 3, [facility], 160, cm, 01/08/25 14:37:00 EDT, Height/Length Dosing, 71.5, kg, 01/08/25 14:37:00 EDT, Weight Dosing 2. Heart palpitations (R00.2: Palpitations) scheduled to see cardiology at [facility] Ordered: amlodipine, 10 mg = 1 tab(s), Oral, Daily, X 90 day(s), # 90 tab(s), Refills(s) 3, Pharmacy: [facility], 160, cm, 01/08/25 14:37:00 EDT, Height/Length Dosing, 71.5, kg, 01/08/25 14:37:00 EDT, Weight Dosing amlodipine, 10 mg = 1 tab(s), Oral, Daily, X 90 day(s), # 90 tab(s), Refills(s) 3, Pharmacy: [facility], 160, cm, 03/19/25 13:39:00 EDT, Height/Length Dosing, 71.4, kg, 03/19/25 13:39:00 EDT, Weight Dosing bisoprolol-hydrochlorothiazide, 1 tab(s), Oral, Daily for 90 day(s), 90 tab(s), Refill(s) 3, [facility], 160, cm, 03/19/25 13:39:00 EDT, Height/Length Dosing, 71.4, kg, 03/19/25 13:39:00 EDT, Weight Dosing bisoprolol-hydrochlorothiazide, 1 tab(s), Oral, Daily for 90 day(s), 90 tab(s), Refill(s) 3, [facility], 160, cm, 01/08/25 14:37:00 EDT, Height/Length Dosing, 71.5, kg, 01/08/25 14:37:00 EDT, Weight Dosing 3. Adult BMI 27.0-27.9 kg/sq m (Z68.27: Body mass index [BMI] 27.0-27.9, adult) BMI education Ordered: amlodipine, 10 mg = 1 tab(s), Oral, Daily, X 90 day(s), # 90 tab(s), Refills(s) 3, Pharmacy: [facility], 160, cm, 01/08/25 14:37:00 EDT, Height/Length Dosing, 71.5, kg, 01/08/25 14:37:00 EDT, Weight Dosing amlodipine, 10 mg = 1 tab(s), Oral, Daily, X 90 day(s), # 90 tab(s), Refills(s) 3, Pharmacy: [facility], 160, cm, 03/19/25 13:39:00 EDT, Height/Length Dosing, 71.4, kg, 03/19/25 13:39:00 EDT, Weight Dosing bisoprolol-hydrochlorothiazide, 1 tab(s), Oral, Daily for 90 day(s), 90 tab(s), Refill(s) 3, [facility], 160, cm, 03/19/25 13:39:00 EDT, Height/Length Dosing, 71.4, kg, 03/19/25 13:39:00 EDT, Weight Dosing bisoprolol-hydrochlorothiazide, 1 tab(s), Oral, Daily for 90 day(s), 90 tab(s), Refill(s) 3, [facility], 160, cm, 01/08/25 14:37:00 EDT, Height/Length Dosing, 71.5, kg, 01/08/25 14:37:00 EDT, Weight Dosing 4. Non-smoker (Z78.9: Other specified health status) continue not smoking Ordered: amlodipine, 10 mg = 1 tab(s), Oral, Daily, X 90 day(s), # 90 tab(s), Refills(s) 3, Pharmacy: [facility], 160, cm, 01/08/25 14:37:00 EDT, Height/Length Dosing, 71.5, kg, 01/08/25 14:37:00 EDT, Weight Dosing amlodipine, 10 mg = 1 tab(s), Oral, Daily, X 90 day(s), # 90 tab(s), Refills(s) 3, Pharmacy: [facility], 160, cm, 03/19/25 13:39:00 EDT, Height/Length Dosing, 71.4, kg, 03/19/25 13:39:00 EDT, Weight Dosing bisoprolol-hydrochlorothiazide, 1 tab(s), Oral, Daily for 90 day(s), 90 tab(s), Refill(s) 3, [facility], 160, cm, 03/19/25 13:39:00 EDT, Height/Length Dosing, 71.4, kg, 03/19/25 13:39:00 EDT, Weight Dosing bisoprolol-hydrochlorothiazide, 1 tab(s), Oral, Daily for 90 day(s), 90 tab(s), Refill(s) 3, [facility], 160, cm, 01/08/25 14:37:00 EDT, Height/Length Dosing, 71.5, kg, 01/08/25 14:37:00 EDT, Weight Dosing Follow-up No qualifying data available Problem List/Past Medical History Ongoing Adult BMI 27.0-27.9 kg/sq m Adult BMI 28.0-28.9 kg/sq m Anxiety Atrial fibrillation Atrial fibrillation, currently in sinus rhythm COVID-19 Heart palpitations Hospital discharge follow-up Hypertension Low back pain with left-sided sciatica Osteoarthritis of lumbosacral spine Spondylolisthesis at L5-S1 level Syncopal episodes Urethral meatal stenosis Historical Hypertension Procedure/Surgical History Cystourethroscopy with dilation of urethral stricture (02/28/2022), Laparoscopic oophorectomy (02/28/2022), delivery, Cholecystectomy, Hysterectomy, Tubal ligation. Medications amLODIPine 10 mg Tab, 10 mg= 1 tab(s), Oral, Daily, 3 refills bisoprolol-hydrochlorothiazide 10 mg-6.25 mg Tab, 1 tab(s), Oral, Daily, 3 refills Allergies No Known Medication Allergies Social History Alcohol Never., 01/02/2025 Substance Abuse Never., 01/02/2025 Tobacco Never (less than 100 in lifetime) Tobacco Use:. Never Smokeless Tobacco Use:. Household tobacco concerns: No., 03/19/2025 Family History Hypertension: Mother. Immunizations Vaccine Date Status diphtheria/pertussis, acel/tetanus adult 04/21/2019 Recorded diphtheria/pertussis, acel/tetanus adult 08/26/2010 Recorded Result Comment: Electronical ly Signed By: Anamaria Kelley.roge\Date and Time Signed: 03/19/25 14:27 EDT CNPN Observed: 02/25/2025 12:00 AM Status: COMPLETED Source: [facility] Telephone (CARDMN) JENNY FRANCO ([id number]) 1970 F Date Time Provider Department 02/25/25 GIORGI THOMPSONVT During your visit today, we recorded the following information about you: Olimpia Gomez 02/25/2025 1:50 PM Signed Scheduled from referring physician box; New patient letter has been sent for scheduled appt on 04/10/25 Allergies As of Date: 02/25/2025 (No Known Allergies) Date Reviewed: 01/22/2017 Reviewed by: Mukesh Kunz - Fully Assessed Prescriptions as of 02/25/2025 - losartan (COZAAR) 100 mg tablet Take 100 mg by mouth once daily. - amLODIPine (NORVASC) 10 mg tablet Take 10 mg by mouth once daily. - lisinopril (ZESTRIL, PRINIVIL) 10 mg tablet Take 10 mg by mouth once daily. Problem List As Of Date: 02/25/2025 (None) Encounter Status:Closed by OLIMPIA GOMEZ on 02/25/25 CNCO Observed: 02/25/2025 12:00 AM Status: COMPLETED Source: [facility] Letter Text AMBULATORY VISIT SUMMARY Observed: 02/19 12:56 PM Status: F Source: [facility] Ambulatory Visit Summary JENNY FRANCO :1970 Visit Date:02/19/2025 Ambulatory Visit Instructions Your Diagnosis Adult BMI 27.0-27.9 kg/sq m Non-smoker Your Care Team Attending Physician - Anamaria Kelley Primary Care Physician - Anamaria Kelley This Is Your Medications List amlodipine (amLODIPine 10 mg Tab) bisoprolol-hydrochlorothiazide (bisoprolol-hydrochlorothiazide 10 mg-6.25 mg Tab) Procedures Performed Cystourethroscopy with dilation of urethral stricture (02/28/2022), Laparoscopic oophorectomy (02/28/2022), delivery, Cholecystectomy, Hysterectomy, Tubal ligation. Discharge Vitals Heart Rate (Peripheral) 62 Respiratory Rate 18 Blood Pressure 116/70 Height 160.0 cm Height 63 in Weight 70.4 kg Weight 155.205 lb BMI 27.5 What to do next Scheduled Follow-Up Appointments Monday 1:20 PM EDT With: Anamaria Kelley Where: [place] [id number]- Medications What How Much When Why Instructions Unchanged amlodipine (amLODIPine 10 mg Tab) 1 Tablets By Mouth Every day Hypertension Heart palpitations BMI 27.0-27.9,adult Non-smoker Duration: 90 Days Unchanged bisoprolol-hydrochlorothiazide (bisoprolol-hydrochlorothiazide 10 mg- 6.25 mg Tab) 1 Tablets By Mouth Every day Hypertension Heart palpitations BMI 27.0-27.9,adult Non-smoker Duration: 90 Days Allergies No Known Medication Allergies Problems Ongoing - Any problem that you are currently receiving treatment for. Adult BMI 27.0-27.9 kg/sq m Adult BMI 28.0-28.9 kg/sq m Anxiety Atrial fibrillation COVID-19 Heart palpitations Hypertension Low back pain with left-sided sciatica Osteoarthritis of lumbosacral spine Spondylolisthesis at L5-S1 level Urethral meatal stenosis Historical - Any problem that you are no longer receiving treatment for. Hypertension Patient Survey You may receive a survey via text or e-mail asking about your office visit. Please share your experience with us by completing your survey. We appreciate your feedback and thank you for choosing us for your care. 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 Testing Performed: New medications: New specialist involved Therapy ordered: Next appointment date: CLARE: 0 Current concerns: Pt states this same things happened 09/17/25 she was seen at [facility] pt brought in discharge papers and Discharge Dx was A-fib, palpitations and hypokalemia. Pt states she hasn't follow up on this hospital visit and hasn't seen cardiology for a-fib . Pt states it just started when she was driving. Breathing issues have been intermittent sine 2012. History of Present Illness pt presents today for ER follow up. Review of Systems PHQ Score Initial Depression Screen Score: 2 SCORE Physical Exam Vitals & Measurements HR: 62(Peripheral) RR: 18 BP: 116/70 HT: 160.0 cm HT: 63 in WT: 70.4 kg WT: 155.205 lb BMI: 27.5 General: alert, no acute distress ENMT: oral mucosa moist, no pharyngeal erythema or exudate Cardiovascular: regular rate and rhythm, normal peripheral perfusion Respiratory: Lungs CTA, respirations non labored Extremities: no deformity, no trauma Neurological: oriented x 4, LOC appropriate for age, CN II-XII intact, motor strength equal & normal bilaterally, speech normal Assessment/Plan 1. Hospital discharge follow-up (Z09: Encounter for follow-up examination after completed treatment for conditions other than malignant neoplasm) pt was seen in ER [facility] for tightness of chest, hyperventilation and fingers and lips went numb. we requested records but still have not received them. pt states my BP was radha high in the ER and when they discharged me in was in the 180's. BP is WNL in office today. I do not know what EKG results were. pt said they didn't tell me anything except that my potassium was low. will send referral to cardiology at [facility] per pt request. RTC 4 weeks. 2. Atrial fibrillation, currently in sinus rhythm (Z86.79: Personal history of other diseases of the circulatory system) When she went to ER on 09/17/24 she was in a fib. 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 she was supposed to follow up with cardiology but never did because she didn't want to drive to [place]. but she is requesting referral to Cardiology through [facility]. heart rate is regular and BP is normal in office today. pt says when she has these episodes it starts in her back, wraps around to center of her chest and feels like she has a tight rope around her chest. she puts her knees to her chest and takes deep breaths and it usually goes away. but this last time she ended up hyperventilating and was taken to ER Ordered: [facility] External Ambulatory Referral 3. Syncopal episodes (R55: Syncope and collapse) pt states she has had 3 of these episodes in the last couple years. went to ER on 09/17/24 and 02/17/24. Ordered: [facility] External Ambulatory Referral 4. Adult BMI 27.0-27.9 kg/sq m (Z68.27: Body mass index [BMI] 27.0-27.9, adult) BMI education given Ordered: Misc Prescription, automatic blood pressure monitor, See Instructions, 1 EA, 0, check BP 1-2 hours after taking medication, [facility] #[id number], Supply, 160, cm, 08/03/23 14:08:00 EST, Height/Length Dosing, 70, kg, 08/03/23 14:08:00 EST, Weight Dosing [facility] External Ambulatory Referral 5. Non-smoker (Z78.9: Other specified health status) continue not smoking Ordered: Misc Prescription, automatic blood pressure monitor, See Instructions, 1 EA, 0, check BP 1-2 hours after taking medication, [facility] #[id number], Supply, 160, cm, 08/03/23 14:08:00 EST, Height/Length Dosing, 70, kg, 08/03/23 14:08:00 EST, Weight Dosing [facility] External Ambulatory Referral Orders: meloxicam, 15 mg = 1 tab(s), Oral, Daily, # 90 tab(s), Refills(s) 0, Pharmacy: [facility], 160, cm, 01/08/25 14:37:00 EDT, Height/Length Dosing, 71.5, kg, 01/08/25 14:37:00 EDT, Weight Dosing methylPREDNISolone, = 1 packet(s), Oral, Once, as directed on package labeling, # 21 tab(s), Refills(s) 0, Pharmacy: [facility], 160, cm, 01/08/25 14:37:00 EDT, Height/Length Dosing, 71.5, kg, 01/08/25 14:37:00 EDT, Weight Dosing Follow-up No qualifying data available Problem List/Past Medical History Ongoing Adult BMI 27.0-27.9 kg/sq m Adult BMI 28.0-28.9 kg/sq m Anxiety Atrial fibrillation Atrial fibrillation, currently in sinus rhythm COVID-19 Heart palpitations Hospital discharge follow-up Hypertension Low back pain with left-sided sciatica Osteoarthritis of lumbosacral spine Spondylolisthesis at L5-S1 level Syncopal episodes Urethral meatal stenosis Historical Hypertension Procedure/Surgical History Cystourethroscopy with dilation of urethral stricture (02/28/2022), Laparoscopic oophorectomy (02/28/2022), delivery, Cholecystectomy, Hysterectomy, Tubal ligation. Medications amLODIPine 10 mg Tab, 10 mg= 1 tab(s), Oral, Daily, 3 refills bisoprolol-hydrochlorothiazide 10 mg-6.25 mg Tab, 1 tab(s), Oral, Daily, 3 refills Allergies No Known Medication Allergies Social History Alcohol Never., 01/02/2025 Substance Abuse Never., 01/02/2025 Tobacco Never (less than 100 in lifetime) Tobacco Use:. Never Smokeless Tobacco Use:. Household tobacco concerns: No., 01/08/2025 Family History Hypertension: Mother. Immunizations Vaccine Date Status diphtheria/pertussis, acel/tetanus adult 04/21/2019 Recorded diphtheria/pertussis, acel/tetanus adult 08/26/2010 Recorded Result Comment: Electronical ly Signed By: Anamaria Kelley\Date and Time Signed: 02/19/25 13:55 EDT TROP I, HIGH SENSITIVITY 1 HOUR Collected: 01/24 2:08 PM Status: COMPLETED Source: [facility] TYPE CODE TESTS RESULT OUT OF RANGE REFERENCE UNITS LAB TNIHS TROPONIN I, HIGH SENSITIVITY 5 <16 ng/L Performed By: #### [email or web address] ## ## [facility] ([address] [address] VIR POCT , URINE (NUCG) Collected: 025 2:03 PM Status: COMPLETED Source: [facility] TYPE CODE TESTS RESULT OUT OF RANGE REFERENCE UNITS LAB NUCG URINE NURSING Negative Negative Performed By: #### NUCG #### [address] [address] VIR POCT NURSING URINE MACROSCOPIC UA Collected: 02/16/2025 2:01 PM Status: COMPLETED Source: [facility] TYPE CODE TESTS RESULT OUT OF RANGE REFERENCE UNITS LAB SPGRN SPECIFIC GRAVITY ONEL 1.020 1.010, 1.015, 1.020, 1.025 LAB LESTN LEUKOCYTE ESTERASE ONEL Negative Negative LAB NITN NITRITE ONEL Negative Negative LAB PHURN PH ONEL 6.5 5.0, 6.0, 6.5, 7.0, 7.5, 8.0, 8.5, 5.5 LAB PRURN PROTEIN ONEL 30 mg/dL Abnormal Negative LAB GLURN GLUCOSE ONEL Negative Negative LAB KETN KETONES ONEL Negative Negative LAB UROBN UROBILINOGEN ONEL 0.2 E.U./dL LAB BILEN BILIRUBIN ONEL Negative Negative LAB BLURN BLOOD/HGB ONEL Trace Abnormal Negative Performed By: #### NUM #### [facility] ([address] [address] VIR CBC WITH AUTO DIFFERENTIAL Collected: 0 02/16/2025 12:38 PM Status: COMPLETED Source: [facility] TYPE CODE TESTS RESULT OUT OF RANGE REFERENCE UNITS LAB WBC WBC 4.4 4-11 x10E9/L LAB RBC RBC COUNT 4.49 3.8-5.2 X10E12/L LAB HGB HEMOGLOBIN 14.5 11.7-15.5 g/dL LAB HCT HEMATOCRIT 41.4 35-47 % LAB MCV MCV 92 80-100 fL LAB MCH MCH 32.2 27-34 pg LAB MCHC MCHC 35.0 32-36 g/dL LAB RDW RDW 14.0 11.5-15 % LAB PLTC PLATELET COUNT 203 150-450 X10E9/L LAB MPV MPV 9.2 7-12 fL LAB NEUT NEUTROPHILS RELATIVE PERCENT BY AUTOMATED COUNT 58.7 % LAB LYMP LYMPHOCYTES RELATIVE PERCENT BY AUTOMATED COUNT 34.5 % LAB MONO MONOCYTES RELATIVE PERCENT BY AUTOMATED COUNT 6.1 % LAB EOS EOSINOPHILS RELATIVE PERCENT BY AUTOMATED COUNT 0.3 % LAB BASO BASOPHILS RELATIVE PERCENT BY AUTOMATED COUNT 0.4 % LAB ANEUT NEUTROPHILS ABSOLUTE COUNT BY AUTOMATED COUNT 2.6 1.5-6.6 10*3/uL LAB ALYMP LYMPHOCYTES ABSOLUTE COUNT (10*3/UL) BY AUTOMATED COUNT 1.5 1.0-3.5 10*3/uL LAB AMONO MONOCYTES ABSOLUTE COUNT (10*3/UL) BY AUTOMATED COUNT 0.3 0.0-0.9 10*3/uL LAB AEOS EOSINOPHILS ABSOLUTE COUNT (10*3/UL) BY AUTOMATED COUNT 0.0 0.0-0.4 10*3/uL LAB ABASO BASOPHILS ABSOLUTE COUNT (10*3/UL) BY AUTOMATED COUNT 0.0 0.0-0.2 10*3/uL LAB DTYPE CELLAVISION DIFFERENTIAL TYPE AUTOMATED DIFFERENTIAL Performed By: #### CBCA #### [facility] ([address] [address] VIR MAGNESIUM Collected: 02/16/2025 12:38 PM Status: COMPLETED Source: [facility] TYPE CODE TESTS RESULT OUT OF RANGE REFERENCE UNITS LAB MG MAGNESIUM 2.0 1.8-2.6 mg/dL Performed By: #### MG #### [facility] ([address] [address] VIR COMPREHENSIVE METABOLIC PANEL Collected : 02/16/2025 12:38 PM Status: COMPLETED Source: [facility] TYPE CODE TESTS RESULT OUT OF RANGE REFERENCE UNITS LAB NA SODIUM 138 134-146 mmol/L LAB K POTASSIUM 3.1 Low 3.5-5.0 mmol/L LAB CL CHLORIDE 103 98-109 mmol/L LAB CO2 CARBON DIOXIDE 25 22-32 mmol/L LAB AGAP ANION GAP 10 5-15 mmol/L LAB BUN BLOOD UREA NITROGEN 15 5-23 mg/dL LAB CRET CREATININE 1.29 High 0.40-1.00 mg/dL Result Comment: METHOD TRACE ABLE TO IDMS STANDARD LAB GLU GLUCOSE 122 High 65-99 mg/dL LAB CA CALCIUM Result Comment: I-ES LAB TP TOTAL PROTEIN 8.2 High 6.0-8.0 g/dL LAB ALB ALBUMIN 4.0 3.2-5.3 g/dL LAB ALK ALKALINE PHOSPHATASE 76 39-130 U/L LAB AST AST 32 <=41 U/L LAB ALT ALT 23 <=31 U/L LAB TBIL BILIRUBIN,TOTAL 0.5 0.3-1.2 mg/dL LAB EGFR EGFR (CKD-EPI) NON-RACE DEPENDENT 49 Low >=60 ml/min/1 .73sq.m Result Comment: eGFR not rep orted due to non-numeric value for Creatinine. Performed By: #### CMP #### [address] [address] VIR TROPONIN I, HIGH SENSITIVITY 0 HOUR Collected: 02/16/2025 12:38 PM Status: COMPLETED Source: [facility] TYPE CODE TESTS RESULT OUT OF RANGE REFERENCE UNITS LAB TNIHS TROPONIN I, HIGH SENSITIVITY 5 <16 ng/L Performed By: #### [email or web address] ## ## [address] [address] VIR BEDSIDE GLUCOSE Collected: 02/16/2025 12:28 PM Status: COMPLETED Source: [facility] TYPE CODE TESTS RESULT OUT OF RANGE REFERENCE UNITS LAB BEDG BEDSIDE GLUCOSE ???BEDG 125 High 65-99 mg/dL Performed By: #### BEDG #### [address] [place] [address] VIR AMBULATORY VISIT SUMMARY Observed: 01/08 2:27 PM Status: F Source: [facility] Ambulatory Visit Summary JENYN FRANCO :1970 Visit Date:01/08/2025 Ambulatory Visit Instructions Your Diagnosis Low back pain with left-sided sciatica Osteoarthritis of lumbosacral spine Spondylolisthesis at L5-S1 level Adult BMI 27.0-27.9 kg/sq m, BMI 27.0-27.9,adult Non-smoker Your Care Team Attending Physician - Anamaria Kelley Primary Care Physician - Anamaria Kelley This Is Your Medications List [facility] Prescription (automatic blood pressure monitor) amlodipine (amLODIPine 10 mg Tab) bisoprolol-hydrochlorothiazide (bisoprolol-hydrochlorothiazide 10 mg-6.25 mg Tab) meloxicam (meloxicam 15 mg Tab) methylPREDNISolone (methylPREDNISolone 4 mg tab dosepak) [Image Removed: STOP]Stop taking these medications cyclobenzaprine (cyclobenzaprine 10 mg Tab) Procedures Performed Cystourethroscopy with dilation of urethral stricture (02/28/2022), Laparoscopic oophorectomy (02/28/2022), delivery, Cholecystectomy, Hysterectomy, Tubal ligation. Discharge Vitals Heart Rate (Peripheral) 70 Respiratory Rate 18 Blood Pressure 136/84 Height 160.0 cm Height 63 in Weight 71.45 kg Weight 157.52 lb BMI 27.91 Medications What How Much When Why Instructions New amlodipine (amLODIPine 10 mg Tab) 1 Tablets By Mouth Every day Hypertension Heart palpitations BMI 27.0-27.9,adult Non-smoker Duration: 90 Days Refills: 3 Pickup at [facility] New bisoprolol-hydrochlorothiazide (bisoprolol-hydrochlorothiazide 10 mg-6.25 mg Tab) 1 Tablets By Mouth Every day Hypertension Heart palpitations BMI 27.0-27.9,adult Non-smoker Duration: 90 Days Refills: 3 Pickup at [facility] New meloxicam (meloxicam 15 mg Tab) 1 Tablets By Mouth Every day Pickup at [facility] Unchanged methylPREDNISolone (methylPREDNISolone 4 mg tab dosepak) 1 Packets By Mouth Once as directed on package labeling Pickup at [facility] Unchanged [facility] Prescription (automatic blood pressure monitor) See instructions BMI 27.0-27.9,adult Non-smoker check BP 1-2 hours after taking medication Pharmacy Information [facility]: [address] [place] [id number] [phone] What How Much When Comments Stop Taking cyclobenzaprine (cyclobenzaprine 10 mg Tab) 1 Tablets By Mouth At bedtime as needed for for spasm Allergies No Known Medication Allergies Problems Ongoing - Any problem that you are currently receiving treatment for. Adult BMI 27.0-27.9 kg/sq m Adult BMI 28.0-28.9 kg/sq m Anxiety COVID-19 Heart palpitations Hypertension Low back pain with left-sided sciatica Osteoarthritis of lumbosacral spine Spondylolisthesis at L5-S1 level Urethral meatal stenosis Historical - Any problem that you are no longer receiving treatment for. Hypertension Patient Survey You may receive a survey via text or e-mail asking about your office visit. Please share your experience with us by completing your survey. We appreciate your feedback and thank you for choosing us for your care. FAMILY MEDICINE OFFICE/CLINI C NOTE Observed: 01/08/2025 2:27 PM Status: F Source: [facility] Family Medicine Office/Clini c Note HPI Staff Jenny is a 54 year old female presenting for acute visit Onset: 2 weeks Location: pain on left lower back radiation around to left groin Characteristics: constant aching Aggravated by: turning in bed or getting up from sitting position Relieved by: n/a Questions/Concerns: has been using heat, lidocaine patches with no relief, 8/10 pt rocking in chair. History of Present Illness pt c/o low back pain. using andie and lidocaine patches. pain 8/10 Review of Systems PHQ Score Initial Depression Screen Score: 0 SCORE Physical Exam Vitals & Measurements HR: 70(Peripheral) RR: 18 BP: 136/84 HT: 160.0 cm HT: 63 in WT: 71.45 kg WT: 157.52 lb BMI: 27.91 General: alert, no acute distress ENMT: oral mucosa moist, no pharyngeal erythema or exudate Cardiovascular: regular rate and rhythm, normal peripheral perfusion Respiratory: Lungs CTA, respirations non labored Extremities: no deformity, no trauma Neurological: oriented x 4, LOC appropriate for age, CN II-XII intact, motor strength equal & normal bilaterally, speech normal visibly uncomfortable sitting in chair, rocking back and forth Assessment/Plan 1. Low back pain with left-sided sciatica (M54.42: Lumbago with sciatica, left side) pt c/o low left sided back pain with sciatica. about 1 year ago she had similar pain. x ray showed degenerative changes at L5-S1. pt was ordered Medrol dose pack and meloxicam. she states the muscle relaxers make her feel crazy. so i will not refill those. will continue stretches at home. will continue heat at home. RTC 3 weeks if no improvement 2. Osteoarthritis of lumbosacral spine (M47.817: Spondylosis without myelopathy or radiculopathy, lumbosacral region) if no improvement of pain in 3 weeks will consider MRI and referral to pain management. 3. Spondylolisthesis at L5-S1 level (M43.17: Spondylolisthesis, lumbosacral region) see above 4. Adult BMI 27.0-27.9 kg/sq m, (Z68.27: Body mass index [BMI] 27.0-27.9, adult)BMI 27.0-27.9,adult BMI education given Ordered: amlodipine, 10 mg = 1 tab(s), Oral, Daily, X 90 day(s), # 90 tab(s), Refills(s) 3, Pharmacy: [id number], 160, cm, 07/08/24 14:09:00 EDT, Height/Length Dosing, 71.5, kg, 07/08/24 14:09:00 EDT, Weight Dosing amlodipine, 10 mg = 1 tab(s), Oral, Daily, X 90 day(s), # 90 tab(s), Refills(s) 3, Pharmacy: [facility] #72, 160, cm, 01/08/25 14:37:00 EDT, Height/Length Dosing, 71.5, kg, 01/08/25 14:37:00 EDT, Weight Dosing bisoprolol-hydrochlorothiazide, 1 tab(s), Oral, Daily for 90 day(s), 90 tab(s), Refill(s) 3, [facility] #72, 160, cm, 07/08/24 14:09:00 EDT, Height/Length Dosing, 71.5, kg, 07/08/24 14:09:00 EDT, Weight Dosing bisoprolol-hydrochlorothiazide, 1 tab(s), Oral, Daily for 90 day(s), 90 tab(s), Refill(s) 3, [facility] #72, 160, cm, 01/08/25 14:37:00 EDT, Height/Length Dosing, 71.5, kg, 01/08/25 14:37:00 EDT, Weight Dosing 5. Non-smoker (Z78.9: Other specified health status) continue not smoking Ordered: amlodipine, 10 mg = 1 tab(s), Oral, Daily, X 90 day(s), # 90 tab(s), Refills(s) 3, Pharmacy: [facility] #72, 160, cm, 07/08/24 14:09:00 EDT, Height/Length Dosing, 71.5, kg, 07/08/24 14:09:00 EDT, Weight Dosing amlodipine, 10 mg = 1 tab(s), Oral, Daily, X 90 day(s), # 90 tab(s), Refills(s) 3, Pharmacy: [facility] #72, 160, cm, 01/08/25 14:37:00 EDT, Height/Length Dosing, 71.5, kg, 01/08/25 14:37:00 EDT, Weight Dosing bisoprolol-hydrochlorothiazide, 1 tab(s), Oral, Daily for 90 day(s), 90 tab(s), Refill(s) 3, [facility] #[facility], 160, cm, 07/08/24 14:09:00 EDT, Height/Length Dosing, 71.5, kg, 07/08/24 14:09:00 EDT, Weight Dosing bisoprolol-hydrochlorothiazide, 1 tab(s), Oral, Daily for 90 day(s), 90 tab(s), Refill(s) 3, [facility] #[facility], 160, cm, 01/08/25 14:37:00 EDT, Height/Length Dosing, 71.5, kg, 01/08/25 14:37:00 EDT, Weight Dosing Orders: meloxicam, 15 mg = 1 tab(s), Oral, Daily, # 90 tab(s), Refills(s) 0, Pharmacy: [facility] #72, 160, cm, 01/08/25 14:37:00 EDT, Height/Length Dosing, 71.5, kg, 01/08/25 14:37:00 EDT, Weight Dosing meloxicam, 15 mg = 1 tab(s), Oral, Daily, # 30 tab(s), Refills(s) 0, Pharmacy: [facility] #72, 160, cm, 07/08/24 14:09:00 EDT, Height/Length Dosing, 71.5, kg, 07/08/24 14:09:00 EDT, Weight Dosing methylPREDNISolone, = 1 packet(s), Oral, Once, as directed on package labeling, # 21 tab(s), Refills(s) 0, Pharmacy: [facility] #72, 160, cm, 01/08/25 14:37:00 EDT, Height/Length Dosing, 71.5, kg, 01/08/25 14:37:00 EDT, Weight Dosing Follow-up No qualifying data available Problem List/Past Medical History Ongoing Adult BMI 27.0-27.9 kg/sq m Adult BMI 28.0-28.9 kg/sq m Anxiety COVID-19 Heart palpitations Hypertension Low back pain with left-sided sciatica Osteoarthritis of lumbosacral spine Spondylolisthesis at L5-S1 level Urethral meatal stenosis Historical Hypertension Procedure/Surgical History Cystourethroscopy with dilation of urethral stricture (02/28/2022), Laparoscopic oophorectomy (02/28/2022), delivery, Cholecystectomy, Hysterectomy, Tubal ligation. Medications amLODIPine 10 mg Tab, 10 mg= 1 tab(s), Oral, Daily, 3 refills automatic blood pressure monitor, See Instructions bisoprolol-hydrochlorothiazide 10 mg-6.25 mg Tab, 1 tab(s), Oral, Daily, 3 refills meloxicam 15 mg Tab, 15 mg= 1 tab(s), Oral, Daily methylPREDNISolone 4 mg tab dosepak, 1 packet(s), Oral, Once Allergies No Known Medication Allergies Social History Alcohol Never., 01/02/2025 Substance Abuse Never., 01/02/2025 Tobacco Never (less than 100 in lifetime) Tobacco Use:. Never Smokeless Tobacco Use:. Household tobacco concerns: No., 01/08/2025 Family History Hypertension: Mother. Immunizations Vaccine Date Status diphtheria/pertussis, acel/tetanus adult 04/21/2019 Recorded diphtheria/pertussis, acel/tetanus adult 08/26/2010 Recorded Result Comment: Electronical ly Signed By: Anamaria Kelley\.roge\Date and Time Signed: 01/08/25 15:00 EDT XR CHEST 2V* Observed: 09/17/2024 12:38 PM Status: COMPLETED Source: [facility] [place] [address] XRay Report Signed Patient: Jenny Franco MR#: [id number] : 1970 Acct:[id number] Age/Sex: 53 / F ADM Date: 09/17/24 Loc: ER Room: Type: PRE ER Attending Dr: Copies to: Laron Parrish DO Ordering Provider: Laron Parrish DO Date of Service: 09/17/24 XR/XR chest 2V*: Arrhythmia/Palpitations PA AND LATERAL CHEST: CLINICAL HISTORY: Shortness of breath and heart palpitations. Atrial fibrillation. COMPARISON: None There is no focal parenchymal consolidation, effusion or pneumothorax. The cardiac, hilar and mediastinal silhouettes are within normal limits. There is no vascular congestion. The visualized bony thorax is intact. There is slight dextroscoliotic curvature and mild endplate spurring. XR/XR chest 2V* IMPRESSION: NO ACUTE CARDIOPULMONARY ABNORMALITY. Impression dictated by: Alejandra Matta M.D.09/17/2024 12:38 PM Dictation Location: [place] [address] Transcribed By: [facility] 09/17/24 1238 Dictated By: Alejandra Matta MD 09/17/24 1238 Signed By: <Electronically signed by MD Alejandra Matta in OV> 09/17/24 1238 COMPLETE BLOOD COUNT AUTO DIFF Collected: 09/17/2024 12:30 PM Status: F Source: [facility] TYPE CODE TESTS RESULT OUT OF RANGE REFERENCE UNITS LAB WBC White Blood Count 4.5 Normal 3.8-11.6 10*3/uL LAB UNWBC Uncorrected WBC 4.5 Normal 3.8-11.6 10*3/uL LAB RBC Red Blood Count 4.76 Normal 3.60-5.00 10*6/u L LAB HGB Hemoglobin 14.9 Normal 11.8-15.4 g/dL LAB HCT Hematocrit 44.7 Normal 34.0-46.4 % LAB MCV Mean Corpuscular Volume 93.9 Normal 80-100 fL LAB MCH Mean Corpuscular Hemoglobin 31.3 Normal 24.7-34.3 pg LAB MCHC Mean Corpuscular HGB Conc 33.4 Normal 32.0-35.0 g/dL LAB RDW Red Cell Distribution Width 14.8 Normal 11.9-15.3 % LAB PLT Platelet Count 242 Normal 150-450 10*3/uL LAB MPV Mean Platelet Volume 8.8 Normal 6.3-10.7 fL LAB MDW Monocyte Distribution Width 18.67 Normal 0.00-20.00 % LAB NE% Neutrophils % (Auto) 55.8 . % LAB LY% Lymphocytes % (Auto) 39.0 . % LAB MO% Monocytes % (Auto) 4.5 . % LAB EO% Eosinophils % (Auto) 0.2 . % LAB BA% Basophils % (Auto) 0.5 . % LAB NRBC% NRBC% 0.1 Normal 0-0.5 /100{WBC } LAB NE# Neutrophils # (Auto) 2.5 Normal 1.8-7.7 10*3/uL LAB LY# Lymphocytes # (Auto) 1.7 Normal 1.00-4.8 10*3/uL LAB MO# Monocytes # (Auto) 0.2 Normal 0.0-0.8 10*3/uL LAB EO# Eosinophils # (Auto) 0.0 Normal 0.0-0.45 10*3/uL LAB BA# Basophils # (Auto) 0.0 Normal 0.0-0.2 10*3/uL Result Comment: PERFORMED BY : [facility] [place] [address] PATHOLOGIST BENCH WORKER BINDING YAA GONZALEZ M.D. Performed By: #### CK, MG, C MP, BNP, CBC, PT, HS TROP, PTT, TSH3 #### [place] [id number] [facility] B-TYPE NATRIURETIC PEPTIDE Collected: 09/17/2024 12:3 0 PM Status: F Source: [facility] TYPE CODE TESTS RESULT OUT OF RANGE REFERENCE UNITS LAB BNP B-Type Natriuretic Peptide 84.0 Normal 5-100 pg/mL Result Comment: PERFORMED BY : [place] [address] PATHOLOGIST BENCH WORKER BINDING YAA GONZALEZ M.D. Performed By: #### CK, MG, C MP, BNP, CBC, PT, HS TROP, PTT, TSH3 #### [address] CREATINE KINASE Collected: 12:30 PM Status: F Source: [facility] TYPE CODE TESTS RESULT OUT OF RANGE REFERENCE UNITS LAB CK Creatine Kinase 152 Normal 30-223 U/L Performed By: #### CK, MG, C MP, BNP, CBC, PT, HS TROP, PTT, TSH3 #### [address] TROPONIN I HIGH SENSITIVITY Collected: 09/17/2024 12: 30 PM Status: F Source: [facility] TYPE CODE TESTS RESULT OUT OF RANGE REFERENCE UNITS LAB HS TROP Troponin I High Sensitivity 8.0 Normal 0.0-15.0 pg/mL Result Comment: PERFORMED BY : [place] [address] PATHOLOGIST BENCH WORKER BINDING YAA GONZALEZ M.D. Performed By: #### CK, MG, C MP, BNP, CBC, PT, HS TROP, PTT, TSH3 #### [place] [id number] [facility] PROTHROMBIN TIME INR Collected: 024 12:30 PM Status: F Source: [facility] TYPE CODE TESTS RESULT OUT OF RANGE REFERENCE UNITS LAB R PT Prothrombin Time 12.3 Normal 9.0-12.9 s Result Comment: A hematocrit value greater than 55% may lead to inaccurate results in coagulation testing. Patients having hematocrit values >55% require a special collection tube for coagulation studies. Please contact the laboratory at [phone] for redraw instructions. LAB INR INR 1.1 Result Comment: INR Therapeu tic Range A) Pre- and Peroperative OAT started two weeks before surgery. NOT HIP SURGERY: 1.5 - 2.5 HIP SURGERY: 2 - 3 B) Primary and secondary prevention of venous THROMBOSIS: 2 - 3 C) Active venous thrombosis, pulmonary embolism and prevention of recurrent venous thrombosis: 2 - 3 D) Prevention of arterial thromboembolism including patients with mechanical heart valves: 3 - 4.5 Performed By: #### CK, MG, C MP, BNP, CBC, PT, HS TROP, PTT, TSH3 #### [place] [id number] [facility] PARTIAL THROMBOPLASTIN TIME Collected: 09/17/2024 12: 30 PM Status: F Source: [facility] TYPE CODE TESTS RESULT OUT OF RANGE REFERENCE UNITS LAB PTT Partial Thromboplastin Time 36.0 Normal 25.1-36.5 s Result Comment: A hematocrit value greater than 55% may lead to inaccurate results in coagulation testing. Patients having hematocrit values >55% require a special collection tube for coagulation studies. Please contact the laboratory at [phone] for redraw instructions. PERFORMED BY: [place] [address] PATHOLOGIST BENCH WORKER BINDING YAA GONZALEZ M.D. Performed By: #### CK, MG, C MP, BNP, CBC, PT, HS TROP, PTT, TSH3 #### [place] [id number] [facility] COMPREHENSIVE METABOLIC PANEL Collected: 09/17/2024 1 2:30 PM Status: F Source: [facility] TYPE CODE TESTS RESULT OUT OF RANGE REFERENCE UNITS LAB GLU Glucose 82 Normal 70-100 mg/dL Result Comment: Random Gluco se Reference Range is dependent on time and content of last meal. Glucose of more than 200 mg/dL in a nonstressed, ambulatory subject supports the diagnosis of Diabetes Mellitus. ADA recommended reference range LAB BUN Blood Urea Nitrogen 8 Normal 7-25 mg/d L LAB CREATT Creatinine 1.13 Normal 0.60-1.20 mg/dL LAB GFReNR Estimated GFR 57.456 mL/Min LAB NA Sodium 142 Normal 136-145 mmol/L LAB K Potassium 3.2 Low 3.5-5.1 mmol/L LAB CL Chloride 104 Normal 98-107 mmol/L LAB CO2 Carbon Dioxide 30.2 Normal 21.0-31.0 mmol/L LAB GAP Anion Gap 11.0 Normal 6.0-15.0 meq/L LAB CA Calcium 10.1 Normal 8.6-10.3 mg/dL LAB TP Total Protein 8.8 Normal 6.4-8.9 g/dL LAB ALB Albumin Level 4.4 Normal 3.5-5.7 g/dL LAB GLOB Globulin 4.4 g/dL LAB AGRATIO Albumin/Globulin Ratio 1.0 LAB BILIT Bilirubin,Total 0.7 Normal 0.3-1.0 mg/dL LAB AST Aspartate Amino Transferase 24 Normal 13-39 U/L LAB ALT Alanine Aminotransferase 16 Normal 7-52 U/L LAB ALP Alkaline Phosphatase 75 Normal 34-104 U/L LAB CRCLPHA Creatinine Clr C alc Pharmacy 53.10 Performed By: #### CK, MG, C MP, BNP, CBC, PT, HS TROP, PTT, TSH3 #### [facility] [address] [place] [address] MAGNESIUM Collected: 12:30 PM Status: F Source: [facility] TYPE CODE TESTS RESULT OUT OF RANGE REFERENCE UNITS LAB MG Magnesium 2.0 Normal 1.9-2.7 mg/dL Performed By: #### CK, MG, C MP, BNP, CBC, PT, HS TROP, PTT, TSH3 #### [facility] [address] THYROID STIMULATING HORMONE Collected: 09/17/2024 12:30 PM Status: F Source: [facility] TYPE CODE TESTS RESULT OUT OF RANGE REFERENCE UNITS LAB TSH3 Thyroid Stimulating Hormone 1.37 Normal 0.45-5.33 u[iU]/mL Result Comment: PERFORMED BY : [place] [address] PATHOLOGIST BENCH WORKER BINDING YAA GONZALEZ M.D. Performed By: #### CK, MG, C MP, BNP, CBC, PT, HS TROP, PTT, TSH3 #### [facility] [address] ECG 12 LEAD ECG Observed: 09/17/2024 12:04 PM Status: COMPLETED Source: [facility] [place] [address] [place] [address] Electrocardiograph Report Signed Patient: Jenny Franco MR#: [id number] : 1970 Acct:[id number] Age/Sex: 53 / F ADM Date: 09/17/24 Loc: ER Room: Type: [facility] ER Attending Dr: Ordering Provider: Laron Parrish DO Date of Service: 09/17/24 ECG/ECG 12 lead ECG: Arrhythmia/Palpitations Copies to: Test Reason : Blood Pressure : 196/117 mmHG Vent. Rate : 92 BPM Atrial Rate : 92 BPM P-R Int : 122 ms QRS Dur : 80 ms QT Int : 322 ms P-R-T Axes : 54 10 -7 degrees QTcB Int : 398 ms Normal sinus rhythm Nonspecific ST and T wave abnormality Confirmed by Laron PARRISH DO ([id number]) on 09/17/2024 2:02:05 PM Referred By: Electronically Signed By: Laron PARRISH DO Transcribed By: MUS Signed By Laron Parrish DO 1 11/18/23 1402 FAMILY MEDICINE OFFICE/CLINI C NOTE Observed: 07/08/2024 2:33 PM Status: F Source: [facility] Family Medicine Office/Clini c Note Chief Complaint ER follow up to COVID + HPI Staff Jenny is a 53 year old female presenting with ER followup: Hospital: [facility] Visit date: 06/28/24 Symptoms the patient presented with: COVID- Positive Current concerns: No Refills: BP med History of Present Illness pt presents today for ER follow up. was + for covid 10 days ago Physical Exam Vitals & Measurements T: 37.0 ?C(Tympanic) HR: 74(Peripheral) RR: 16 BP: 126/86 SpO2: 97% HT: 63 in HT: 160 cm WT: 71.5 kg WT: 157.3 lb BMI: 27.93 General: alert, no acute distress ENMT: oral mucosa moist, no pharyngeal erythema or exudate Cardiovascular: regular rate and rhythm, normal peripheral perfusion Respiratory: Lungs CTA, respirations non labored Extremities: no deformity, no trauma Neurological: oriented x 4, LOC appropriate for age, CN II-XII intact, motor strength equal & normal bilaterally, speech normal Assessment/Plan 1. COVID-19 (U07.1: COVID-19) pt presents today for ER follow up for Covid 19. pt is 10 days out. is feeling much better. Ordered: Body Mass Index (BMI) documented 3008F Current tobacco non-user 1036F Depression Screening Negative 3352F Discharge medications reconciled with current medications in outpatient record 1111F Influenza immunization status assessed 1030F Medication list documented in medical record 1159F Most recent diastolic blood pressure 80-89 mm Hg 3079F Patient screen for fall risk: no falls in last year or 1 fall with no injury in last year 1101F Review of all meds by a prescribing practitioner or clinical pharmacist documented in EHR 1160F Systolic BP <130 mm Hg (Most Recent) 3074F 2. Hypertension (I10: Essential (primary) hypertension) BP at goal needs refills on meds Ordered: amlodipine, 10 mg = 1 tab(s), Oral, Daily, X 90 day(s), # 90 tab(s), Refills(s) 3, Pharmacy: [facility] #72, 160, cm, 07/08/24 14:09:00 EDT, Height/Length Dosing, 71.5, kg, 07/08/24 14:09:00 EDT, Weight Dosing amlodipine, 10 mg = 1 tab(s), Oral, Daily, X 90 day(s), # 90 tab(s), Refills(s) 3, Pharmacy: [facility] #[id number], 160, cm, 09/14/23 10:53:00 EST, Height/Length Dosing, 70.3, kg, 09/14/23 10:53:00 EST, Weight Dosing bisoprolol-hydrochlorothiazide, 1 tab(s), Oral, Daily for 90 day(s), 90 tab(s), Refill(s) 3, [facility] #72, 160, cm, 07/08/24 14:09:00 EDT, Height/Length Dosing, 71.5, kg, 07/08/24 14:09:00 EDT, Weight Dosing bisoprolol-hydrochlorothiazide, 1 tab(s), Oral, Daily for 90 day(s), 90 tab(s), Refill(s) 3, [facility] #[id number], 160, cm, 09/14/23 10:53:00 EST, Height/Length Dosing, 70.3, kg, 09/14/23 10:53:00 EST, Weight Dosing 3. Osteoarthritis of lumbosacral spine (M47.817: Spondylosis without myelopathy or radiculopathy, lumbosacral region) reviewed x ray results 4. Adult BMI 27.0-27.9 kg/sq m (Z68.27: Body mass index [BMI] 27.0-27.9, adult) BMI education given Ordered: amlodipine, 10 mg = 1 tab(s), Oral, Daily, X 90 day(s), # 90 tab(s), Refills(s) 3, Pharmacy: [facility] #72, 160, cm, 07/08/24 14:09:00 EDT, Height/Length Dosing, 71.5, kg, 07/08/24 14:09:00 EDT, Weight Dosing amlodipine, 10 mg = 1 tab(s), Oral, Daily, X 90 day(s), # 90 tab(s), Refills(s) 3, Pharmacy: [facility] #[id number], 160, cm, 09/14/23 10:53:00 EST, Height/Length Dosing, 70.3, kg, 09/14/23 10:53:00 EST, Weight Dosing bisoprolol-hydrochlorothiazide, 1 tab(s), Oral, Daily for 90 day(s), 90 tab(s), Refill(s) 3, [facility] #[facility], 160, cm, 07/08/24 14:09:00 EDT, Height/Length Dosing, 71.5, kg, 07/08/24 14:09:00 EDT, Weight Dosing bisoprolol-hydrochlorothiazide, 1 tab(s), Oral, Daily for 90 day(s), 90 tab(s), Refill(s) 3, [facility] #[id number], 160, cm, 09/14/23 10:53:00 EST, Height/Length Dosing, 70.3, kg, 09/14/23 10:53:00 EST, Weight Dosing 5. Non-smoker (Z78.9: Other specified health status) continue not smoking Ordered: amlodipine, 10 mg = 1 tab(s), Oral, Daily, X 90 day(s), # 90 tab(s), Refills(s) 3, Pharmacy: [facility] #72, 160, cm, 07/08/24 14:09:00 EDT, Height/Length Dosing, 71.5, kg, 07/08/24 14:09:00 EDT, Weight Dosing amlodipine, 10 mg = 1 tab(s), Oral, Daily, X 90 day(s), # 90 tab(s), Refills(s) 3, Pharmacy: [facility][id number], 160, cm, 09/14/23 10:53:00 EST, Height/Length Dosing, 70.3, kg, 09/14/23 10:53:00 EST, Weight Dosing bisoprolol-hydrochlorothiazide, 1 tab(s), Oral, Daily for 90 day(s), 90 tab(s), Refill(s) 3, [facility] #[facility], 160, cm, 07/08/24 14:09:00 EDT, Height/Length Dosing, 71.5, kg, 07/08/24 14:09:00 EDT, Weight Dosing bisoprolol-hydrochlorothiazide, 1 tab(s), Oral, Daily for 90 day(s), 90 tab(s), Refill(s) 3, [facility] #[id number], 160, cm, 09/14/23 10:53:00 EST, Height/Length Dosing, 70.3, kg, 09/14/23 10:53:00 EST, Weight Dosing Orders: meloxicam, 15 mg = 1 tab(s), Oral, Daily, # 30 tab(s), Refills(s) 0, Pharmacy: [facility] #[id number], 160, cm, 01/15/24 15:02:00 EDT, Height/Length Dosing, 72.5, kg, 01/15/24 15:02:00 EDT, Weight Dosing meloxicam, 15 mg = 1 tab(s), Oral, Daily, # 30 tab(s), Refills(s) 0, Pharmacy: [facility] #72, 160, cm, 07/08/24 14:09:00 EDT, Height/Length Dosing, 71.5, kg, 07/08/24 14:09:00 EDT, Weight Dosing Follow-up No qualifying data available Problem List/Past Medical History Ongoing Adult BMI 27.0-27.9 kg/sq m Adult BMI 28.0-28.9 kg/sq m Anxiety COVID-19 Heart palpitations Hypertension Low back pain with left-sided sciatica Osteoarthritis of lumbosacral spine Urethral meatal stenosis Historical Hypertension Procedure/Surgical History Cystourethroscopy with dilation of urethral stricture (02/28/2022), Laparoscopic oophorectomy (02/28/2022), delivery, Cholecystectomy, Hysterectomy, Tubal ligation. Medications amLODIPine 10 mg Tab, 10 mg= 1 tab(s), Oral, Daily, 3 refills automatic blood pressure monitor, See Instructions bisoprolol-hydrochlorothiazide 10 mg-6.25 mg Tab, 1 tab(s), Oral, [...] Smokeless Tobacco Use:. Household tobacco concerns: No., 07/08/2024 Family History Hypertension: Mother. Immunizations Vaccine Date Status diphtheria/pertussis, acel/tetanus adult 04/21/2019 Recorded diphtheria/pertussis, acel/tetanus adult 08/26/2010 Recorded Result Comment: Electronical ly Signed By: Anamaria Kelley.roge\Date and Time Signed: 07/08/24 14:33 EDT AMBULATORY VISIT SUMMARY Observed: 07/08 2:27 PM Status: F Source: [facility] Ambulatory Visit Summary JENNY FRANCO :1970 Visit Date:07/08/2024 Ambulatory Visit Instructions Your Diagnosis COVID-19 Hypertension Osteoarthritis of lumbosacral spine Adult BMI 27.0-27.9 kg/sq m Non-smoker Your Care Team Attending Physician - Anamaria Kelley Primary Care Physician - Anamaria Kelley This Is Your Medications List Misc Prescription (automatic blood pressure monitor) amlodipine (amLODIPine 10 mg Tab) bisoprolol-hydrochlorothiazide (bisoprolol-hydrochlorothiazide 10 mg-6.25 mg Tab) cyclobenzaprine (cyclobenzaprine 10 mg Tab) estradiol topical (Estrace 0.1 mg/g Cream) Procedures Performed Cystourethroscopy with dilation of urethral stricture (02/28/2022), Laparoscopic oophorectomy (02/28/2022), delivery, Cholecystectomy, Hysterectomy, Tubal ligation. Discharge Vitals Temperature (Tympanic) 37.0 ?C Heart Rate (Peripheral) 74 Respiratory Rate 16 Blood Pressure 126/86 Height 160 cm Height 63 in Weight 71.5 kg Weight 157.3 lb BMI 27.93 Medications What How Much When Why Instructions Unchanged amlodipine (amLODIPine 10 mg Tab) 1 Tablets By Mouth Every day Hypertension Heart palpitations BMI 27.0-27.9,adult Non-smoker Duration: 90 Days Unchanged bisoprolol-hydrochlorothiazide (bisoprolol-hydrochlorothiazide 10 mg- 6.25 mg Tab) 1 Tablets By Mouth Every day Hypertension Heart palpitations BMI 27.0-27.9,adult Non-smoker Duration: 90 Days Unchanged cyclobenzaprine (cyclobenzaprine 10 mg Tab) 1 Tablets By Mouth At bedtime as needed for for spasm Unchanged estradiol topical (Estrace 0.1 mg/ g [...] treatment for. Adult BMI 27.0-27.9 kg/sq m Adult BMI 28.0-28.9 kg/sq m Anxiety COVID-19 Heart palpitations Hypertension Low back pain with left-sided sciatica Osteoarthritis of lumbosacral spine Urethral meatal stenosis Historical - Any problem that you are no longer receiving treatment for. Hypertension Patient Survey You may receive a survey via text or e-mail asking about your office visit. Please share your experience with us by completing your survey. We appreciate your feedback and thank you for choosing us for your care. ALLERGIES DATE TYPE / CODE NAME / CODE REACTION SEVERITY SOURCE 09/17/2024 Drug Allergy/0417541 02(SNOMED CT) No Known Allergies/[id number]( RXNORM) Unknown [facility] Drug Class/224358332 (SNOMED CT) NO KNOWN ALLERGIES [facility] Drug Class/383387641 (SNOMED CT) NO KNOWN ALLERGIES [facility] /452151235(SN OMED CT) No Known Medication Allergies [facility] ENCOUNTERS ADMIT/DISCHARGE ACCOUNT NUMBER ADMITTING ENCOUNTER CLASS LOCATION SOURCE 06/19/2025/06/19/20 [id number] [facility] 04/10/2025/04/10/20 [id number] [facility] 04/10/2025/04/10/20 [id number] [facility] 04/08/2025/04/08/20 [id number] Ambulatory Buildin 18 [facility] Ambulatory [facility] 03/19/2025/03/19/20 [id number] [facility] CD:[id number] [address] [place] [address] 02/19/2025/02/20/20 [id number] Ambulatory FT [facility]FT [facility] 02/16/2025/02/17/20 [id number] Emergency Building:[facility] _EDRoom: 7Bed: 07 [facility] 01/08/2025/01/09/20 [id number] [facility] 01/07/2025/01/08/20 [id number] Ambulatory [facility] [place] [facility] 01/06/2025/01/07/20 [id number] [facility] 09/17/2024/09/17/20 [id number] [facility]rish [facility] 07/08/2024/07/08/20 [id number] Ambulatory FT Dayne ding:FT [facility] : CD:[id number] [facility] PAYERS ENCOUNTER GUARANTOR PAYER SUBSCRIBER SOURCE 06/19/2025 JENNY LIVEFLORENTINOSDOB: [address] STTel: ~~(5 [phone] (HP) Primary Insurance:[facility] Number: [id number] Date:1980-[address] [address]NX: JENNY Butterfield ENMANUEL [facility] 04/10/2025 Primary Insurance:[place] BCBS [facility] Number: [id number] Date:[id number] Name:Iva LIVEFLORENTINOSDOB: [id number] [place] [address] [facility] 04/10/2025 Primary Insurance:[place] BCBS [place] [facility] Number: [id number] Date:[id number] Name:Iva LIVEFLORENTINOSDOB: [id number] [place] [address] [facility] 04/08/2025 JENNYBenton COOKBOB COBBINSDOB: [place] [address]Wnk: (HP) Primary Insurance:[place] MEDICAIDPolicy Number: [id number] Date:2024-09-25 JENNY BOB MARIA TBINSDOB: [id number] [place] [address] [facility] 03/19/2025 JENNY Y COBBINSDOB: N [address] STTel: ~~(5 [phone] (HP) Primary Insurance:MedicaidPoli cy Number: [id number] Date:[id number] [address] [address]EK: JENNY Scout SINGER [facility] 02/19/2025 JENNY Y COBBINSDOB: [address] STTel: ~~(5 [phone] (HP) Primary Insurance:MedicaidPoli cy Number: [id number] Date:[id number] [address] [address]OX: JENNY Scout MARIA TMARGI [facility] 02/16/2025 JENNY ROJAS COBBINSDOB: [address] [facility] [place] [facility] [place] [address]Fnm: (HP) [facility] Insurance:[facility] MEDICAIDPolicy Number: [id number] Date:2024-09-25 JENNY ROJAS COBBINSDOB: [id number] [place] [address] [facility] 01/08/2025 JENNY Y COBBINSDOB: N MULBERRY STTel: ~~([phone] (HP) Primary Insurance:MedicaidPoli cy Number: [id number] Date:[id number] [address] [address]BP: JENNY Scout SINGER [facility] 01/07/2025 JENNY Y COBBINSDOB: N MULBERRY STTel: ~~([phone] (HP) Primary Insurance:MedicaidPoli cy Number: [id number] Date:[id number] [address] [place] [phone]: JENNY Butterfield JUSTINSHEILAJoryDavid [facility] 01/06/2025 JENNY Y COBBINSDOB: N MULBERRY STTel: ~~([phone] (HP) Primary Insurance:MedicaidPoli cy Number: [id number] Date:[id number] [place] [id number]: JENNY Scout ENMANUEL [facility] 09/17/2024 [id number] [place] [address]Epl: (HP) Primary Insurance:[facility] MedicaidPolicy Number: [id number] Date:[id number] [address] [place] [address]TI: Jenny CobbinsDOB: [id number] [place] [address]Zsj: (HP) [facility] 09/17/2024 Secondary Insurance:Self PayPolicy Number: Effective Date:2024-09-17 NOT GIVENUNK [facility] 07/08/2024 JENNY Y COBBINSDOB: N MULBERRY STTel: ~~([phone] (HP) Primary Insurance:MedicaidPoli cy Number: [id number] Date:[id number] [address] [place] [phone]: JENNY Y ENMANUEL [facility]
[2025-06-22 17:55] VITALS: BP 191/96; PULSE 69; TEMP 36.9; O2SAT 99; BMI 27.3
[2025-06-22] MEDS: ORPHENADRINE 60 MG/2 ML VIAL IM (18:35)
[2025-06-22] MEDS: KETOROLAC TROMETHAMINE 30 MG/ML VIAL IM (18:35)
--- NOTE | 2025-06-22 18:39 | ED_ITS ---
HPI HPI - General Adult General Chief complaint: Back Pain/Injury Stated complaint: BACK/LEG PAIN Time Seen by Provider: 06/22/25 18:09 Source: patient Mode of arrival: walk-in Limitations: no limitations History of Present Illness HPI narrative: Patient is a 54-year-old female with a past medical history of HTN that presents to the emergency department with complaints of low back pain that is radiating into her left buttock since this morning. She denies any trauma. She does have a history of low back pain that she has been treated a few years ago with pain management, medications and epidural steroid injections. Her primary care provider did give her a Toradol injection in her office about 3 months ago that did help with her low back pain. She denies any pain that has traveled down her legs prior to this incidence. She denies any saddle anesthesia, bowel or bladder incontinence/retention. She denies any numbness or tingling and describes the pain into her buttock as sharp. Related Data Home Medications ?Medication ?Instructions ?Recorded ?Confirmed amlodipine 10 mg tablet 10 mg PO QDAY 06/28/2406/28 metoprolol tartrate 25 mg tablet 25 mg PO DAILY 06/28/24 Previous Rx's ?Medication ?Instructions ?Recorded ibuprofen 600 mg tablet 600 mg PO Q8H PRN pain #20 t abs 06/22/25 prednisone 50 mg tablet 50 mg PO DAILY 5 days #5 tab s 06/22/25 Allergies Allergy/AdvReac Type Severity Reaction Status Date / Time No Known Drug Allergies Allergy Verified 06/22/25 17:55 Opioid HPI Opioid Management Most Recent Opioid Data: Last Pain Scale 10 Today, 18:01 Review of Systems ROS Status of ROS 10 or more systems reviewed and unremark able except as noted in history and below [facility] Medical History (Updated 06/22/25 @ 19:53 by DOMINGO Vogt) Urethral stricture due to and not concurrent with procedure Hypertension ?I10 - Essential (primary) hypertension (ICD-10) Surgical History (Updated 08/01/23 @ 10:37 by Audrey James NP) History of section ?Z98.891 - History of uterine scar from previous surgery (ICD-10) History of tubal ligation ?Z98.51 - Tubal ligation status (ICD-10) History of cholecystectomy ?Z90.49 - Acquired absence of other specified parts of digestive tract (ICD- 10) S/P cystourethroscopy with dilation of urethral stricture ?Z98.890 - Other specified postprocedural states (ICD-10) History of hysterectomy ?Z90.710 - Acquired absence of both cervix and uterus (ICD-10) Family History (Updated 08/01/23 @ 10:37 by Audrey James NP) Other Family history of gastric cancer Family history of hypertension Family history of lung cancer Social History (Updated 08/10/23 @ 08:06 by Rox Ayala) Within the past year, how often did you have a drink containing alcohol: monthly or less Smoking status: Never smoker Non-prescribed substance use: denies use Highest level of school completed/degree received: high school graduate Little interest or pleasure in doing things: not at all Feeling down, depressed, or hopeless: not at all Exam Narrative Exam Narrative: General: No distress, age-appropriate Skin: Warm, dry, no pallor. No rash. Head: Normocephalic, atraumatic. Neck: Supple, non-tender. Eye: Pupils are equal, round and EOMI. No scleral icterus. Ears, Nose, Mouth, and Throat: No nasal mucosal hypertrophy. Oral mucosa is moist, no posterior oropharynx erythema, uvula is mid-line Cardiovascular: Regular Rate and Rhythm without murmur, gallop or rub. Respiratory: No accessory muscle use or respiratory distress. Lungs are clear to auscultation, no wheezing, rales or rhonchi Chest Wall: no tenderness Back: Midline lower lumbar/sacral vertebral tenderness, bilateral sacroiliac joint tenderness. No midline thoracic tenderness with palpation. Musculoskeletal: Full ROM of all extremities, no calf or popliteal tenderness. 5/5 strength bilateral lower extremities, sensation intact distally bilaterally. GI: Abdomen is soft, non-distended, non tender to palpation. No masses appreciated. No rebound, guarding, or rigidity noted. Neurological: A&O x4. No cranial nerve dysfunction observed. No truncal ataxia. Moves all extremities. Sensation intact. Psychiatric: Cooperative and interactive. Normal mood and affect. Constitutional Vital Signs, click to edit/add: Last Vital Signs Temp 98.5 F 06/22/25 17:55 Pulse 61 06/22/25 19:32 Resp 16 06/22/25 19:32 BP 168/95 H 06/22/25 19:32 Pulse Ox 100 06/22/25 19:32 O2 Del Method Room Air 06/22/25 17:55 Documenting provider has reviewed patient's vital signs: yes Course Vital Signs Vital signs: Vital Signs Temperature 98.5 F 06/22/25 17:55 Pulse Rate 69 06/22/25 17:55 Respiratory Rate 20 06/22/25 17:55 Blood Pressure 191/96 H 06/22/25 17:55 Pulse Oximetry 99 06/22/25 17:55 Oxygen Delivery Method Room Air 06/22/25 17:55 Temperature 98.5 F 06/22/25 17:55 Pulse Rate 61 06/22/25 19:32 Respiratory Rate 16 06/22/25 19:32 Blood Pressure 168/95 H 06/22/25 19:32 Pulse Oximetry 100 06/22/25 19:32 Oxygen Delivery Method Room Air 06/22/25 17:55 Medical Decision Making MDM Narrative Medical decision making narrative: This is a 54-year-old female with a past medical history of HTN that presented to the emergency department with 11 hours of increased low back pain that radiates into her left buttock. The radiation stops before her posterior thigh and does not travel down the leg further. She denies any saddle anesthesia, bowel or bladder incontinence/retention. On exam patient is in no distress, sitting up comfortably on the ED cart. Bilateral lower extremities strength is intact, 5/5. Sensation is intact distally to bilateral lower extremities. Toradol and flex IM given for pain. CT lumbar spine ordered given patient is having referred pain in the L4-S1 dermatomal pattern. CT negative for fracture. No significant central canal or foraminal stenosis. There is a posterior disc bulge, slightly eccentric to the left noted at L4-5, but no significant foraminal narrowing. On reevaluation patient appears more comfortable states that the pain is more under control. I did discuss results with her and next steps. I am going to give her a Clov[place] 5 mg to help her sleep tonight. I did call in a prednisone 50 mg burst x 5 days. She will start on ibuprofen daily with food after that. Plan is to discharge home and follow-up with her primary care provider to possibly get started in physical therapy or have MRI ordered. Return precautions were discussed such as saddle anesthesia, bowel or bladder incontinence/retention, lower extremity weakness or numbness, or any new or worsening symptoms. Differential Diagnosis Differential Diagnosis: Lumbar fracture, lumbar radiculopathy, degenerative disc disease Imaging Data CT scan- Lumbar: Attestation: I have reviewed the pertinent imaging results. Radiologist's impression: Mild disc related generative changes and facet arthrosis. No significant central canal or foraminal stenosis is appreciated. No fracture. Discharge Plan Discharge Chief Complaint: Back Pain/Injury Clinical Impression: Lumbar radiculopathy Patient Disposition: Home, Self-Care Time of Disposition Decision: 19:52 Condition: Good Mode of Transportation: Private Vehicle Prescriptions / Home Meds: New prednisone 50 mg tablet 50 mg PO DAILY 5 Days Qty: 5 0RF ibuprofen 600 mg tablet 600 mg PO Q8H PRN (Reason: pain) Qty: 20 0RF No Action amlodipine 10 mg tablet 10 mg PO QDAY metoprolol tartrate 25 mg tablet 25 mg PO DAILY Print Language: Citizen Of [place] Instructions: Lumbar Radiculopathy (ED), Lower Back Exercises (ED) Additional Instructions: Follow up with your family DR and return to ER for any problems or concerns Referrals: HARRIET MANCERA [Primary Care Provider, CLINICAL INFORMATICS MANAGER] - 1 week
[2025-06-22 19:32] VITALS: BP 168/95; PULSE 61; O2SAT 100
[2025-06-22] MEDS: HYDROCODONE/ACET 5-325 MG TABLET 1 TAB PO (19:59)
== END 2025-06-22 20:11 | disposition home or self-care (01) ==
PROVIDERS: Emergency Provider Emergency Medicine; PCP Nurse Practitioner
DX: M54.16 Radiculopathy, lumbar region (principal); I10 Essential (primary) hypertension
CPT/HCPCS: 72131; 76376; 96372; 99285; J1885; J2360

== ENCOUNTER 2025-08-28 13:05 | Emergency (ER) | payer MEDICAID, SELFPAY ==
[2025-08-28 13:09] VITALS: BP 160/100; PULSE 82; TEMP 37.4; O2SAT 100; BMI 27.8
[2025-08-28 13:35] LABS: SARS-CoV-2 Ag NEGATIVE (NEGATIVE)
--- NOTE | 2025-08-28 14:22 | ED_ITS ---
HPI HPI - General Adult General Chief complaint: Upper Respiratory Infection Stated complaint: CONJESTION COUGH BACK PAIN Time Seen by Provider: 08/28/25 14:02 Source: patient History of Present Illness HPI narrative: Patient is a 54-year-old female that presents with complaints of overall not feeling well with cold symptoms since about Monday. She reports nasal congestion, head congestion, and sneezing. She denies cough, nausea, vomiting, or diarrhea. She feels like she has been having hot flashes but was uncertain if it was from her going through menopause. She also reports midline low back pain. She was here in May for this and is currently in the process of getting an MRI approved. She denies any saddle anesthesia, bowel or bladder incontinence/retention, leg weakness or numbness. Related Data Home Medications ?Medication ?Instructions ?Recorded ?Confirmed amlodipine 10 mg tablet 10 mg PO QDAY 06/28/2406/28 metoprolol tartrate 25 mg tablet 25 mg PO DAILY 06/28/24 Previous Rx's ?Medication ?Instructions ?Recorded ibuprofen 600 mg tablet 600 mg PO Q8H PRN pain #20 t abs 06/22/25 prednisone 50 mg tablet 50 mg PO DAILY 5 days #5 tab s 06/22/25 methocarbamol 500 mg tablet 500 mg PO BID PRN muscle s pasms 14 08/28/25 days #28 tabs Allergies Allergy/AdvReac Type Severity Reaction Status Date / Time No Known Drug Allergies Allergy Verified 08/28/25 13:23 Opioid HPI Opioid Management Most Recent Opioid Data: Last Pain Scale 10 06/22/25, 18:01 Review of Systems ROS Status of ROS 10 or more systems reviewed and unremark able except as noted in history and below PF[facility] Medical History (Updated 08/28/25 @ 14:25 by DOMINGO Vogt) Urethral stricture due to and not concurrent with procedure Hypertension ?I10 - Essential (primary) hypertension (ICD-10) Surgical History (Updated 08/01/23 @ 10:37 by Audrey James NP) History of section ?Z98.891 - History of uterine scar from previous surgery (ICD-10) History of tubal ligation ?Z98.51 - Tubal ligation status (ICD-10) History of cholecystectomy ?Z90.49 - Acquired absence of other specified parts of digestive tract (ICD- 10) S/P cystourethroscopy with dilation of urethral stricture ?Z98.890 - Other specified postprocedural states (ICD-10) History of hysterectomy ?Z90.710 - Acquired absence of both cervix and uterus (ICD-10) Family History (Updated 08/01/23 @ 10:37 by Audrey James NP) Other Family history of gastric cancer Family history of hypertension Family history of lung cancer Social History (Updated 08/10/23 @ 08:06 by Rox Ayala) Within the past year, how often did you have a drink containing alcohol: monthly or less Smoking status: Never smoker Non-prescribed substance use: denies use Highest level of school completed/degree received: high school graduate Little interest or pleasure in doing things: not at all Feeling down, depressed, or hopeless: not at all Exam Narrative Exam Narrative: General: No distress, age-appropriate, ambulates with nonantalgic gait Skin: Warm, dry, no pallor. No rash. Head: Normocephalic, atraumatic. Neck: Supple, non-tender. Eye: Pupils are equal, round and EOMI. No scleral icterus. Ears, Nose, Mouth, and Throat: No nasal mucosal hypertrophy. Oral mucosa is moist, no posterior oropharynx erythema, uvula is mid-line Cardiovascular: Regular Rate and Rhythm without murmur, gallop or rub. Respiratory: No accessory muscle use or respiratory distress. Lungs are clear to auscultation, no wheezing, rales or rhonchi Chest Wall: no tenderness Back: No midline thoracic tenderness. Midline lumbar tenderness with palpation. Musculoskeletal: Full ROM of all extremities, no calf or popliteal tenderness. 5/5 strength bilateral lower extremities. Negative clonus bilaterally. Sensation intact distally with light touch. GI: Abdomen is soft, non-distended, non tender to palpation. No masses appreciated. No rebound, guarding, or rigidity noted. Neurological: A&O x4. No cranial nerve dysfunction observed. No truncal ataxia. Moves all extremities. Sensation intact. Psychiatric: Cooperative and interactive. Normal mood and affect. Constitutional Vital Signs, click to edit/add: Last Vital Signs Temp 99.3 F 08/28/25 13:09 Pulse 82 08/28/25 13:09 Resp 18 08/28/25 13:09 BP 201/120 H 08/28/25 14:37 Pulse Ox 100 08/28/25 13:09 O2 Del Method Room Air 08/28/25 13:09 Course Vital Signs Vital signs: Vital Signs Temperature 99.3 F 08/28/25 13:09 Pulse Rate 82 08/28/25 13:09 Respiratory Rate 18 08/28/25 13:09 Blood Pressure 160/100 H 08/28/25 13:09 Pulse Oximetry 100 08/28/25 13:09 Oxygen Delivery Method Room Air 08/28/25 13:09 Temperature 99.3 F 08/28/25 13:09 Pulse Rate 82 08/28/25 13:09 Respiratory Rate 18 08/28/25 13:09 Blood Pressure 201/120 H 08/28/25 14:37 Pulse Oximetry 100 08/28/25 13:09 Oxygen Delivery Method Room Air 08/28/25 13:09 Medical Decision Making MDM Narrative Medical decision making narrative: 54-year-old female presenting with mild upper respiratory symptoms (nasal congestion, head congestion, sneezing, no nausea/vomiting/diarrhea, afebrile) and an acute exacerbation of chronic low back pain. On exam patient is in no distress, afebrile here at 99.3. 100% O2 saturations on room air. No respiratory distress, no wheezing, rhonchi, or rales. Initial BP hypertensive at 160/100, HR 82. Viral testing for flu, COVID-19, and RSV was negative. Exam notable for midline lumbar tenderness without neurologic deficits; lungs clear. Prior CT lumbar shows degenerative changes L4-S1; MRI pending outpatient approval. Pain managed with Toradol, Maidens, lidocaine patch here and Robaxin, and a 5-day course of prednisone sent to pharmacy. No new red flag symptoms for back pain, no concern for cauda equina at this time. No indication for new lumbar imaging. No indication for antibiotics. I discussed all this with patient and plan for symptom management for her cold symptoms and pain management for her back. Patient's last set of vitals prior to discharge revealed elevated blood pressure 201/120 prior to discharge, which patient attributed to missed antihypertensive medications; patient asymptomatic and instructed to resume home medications and follow up with PCP. Discharged home with symptomatic management for URTI, ongoing back pain care, and instructions to return to the ER if red flag symptoms develop. Differential Diagnosis Differential Diagnosis: URI, acute on chronic low back pain, allergic rhinitis Medical Records Medical records reviewed: Yes I reviewed the patient's medical records Medical records narrative: CT lumbar spine without contrast reviewed from 06/22/2025. Lab Data Lab results reviewed: Yes I reviewed the patient's lab results Labs: Lab Results 08/28/25 Range/Units 13:15 Influenza Type A Ag Negative Influenza Type B Ag Negative RSV Antigen Not detected (NOT DETECTE) SARS-CoV-2 Ag (CV2AG) Negative (NEGATIVE) Discharge Plan Discharge Chief Complaint: Upper Respiratory Infection Clinical Impression: Acute viral syndrome, DDD (degenerative disc disease), lumbar Patient Disposition: Home, Self-Care Time of Disposition Decision: 14:25 Condition: Good Mode of Transportation: Private Vehicle Prescriptions / Home Meds: New methocarbamol 500 mg tablet 500 mg PO BID PRN (Reason: muscle spasms) 14 Days Qty: 28 0RF No Action prednisone 50 mg tablet 50 mg PO DAILY 5 Days Qty: 5 0RF ibuprofen 600 mg tablet 600 mg PO Q8H PRN (Reason: pain) Qty: 20 0RF amlodipine 10 mg tablet 10 mg PO QDAY metoprolol tartrate 25 mg tablet 25 mg PO DAILY Print Language: [place] Instructions: Viral Syndrome (ED), Degenerative Disc Disease (ED) Referrals: HARRIET MANCERA [Primary Care Provider, PUMP AND STILL OPERATOR] - 1 week Discharge Date/Time: 08/28/25 14:42
[2025-08-28] MEDS: LIDOCAINE 5% PATCH 1 PATCH TOPICAL (14:27)
[2025-08-28] MEDS: KETOROLAC TROMETHAMINE 30 MG/ML VIAL IM (14:27)
[2025-08-28] MEDS: HYDROCODONE/ACET 5-325 MG TABLET 1 TAB PO (14:27)
[2025-08-28 14:37] VITALS: BP 201/120
== END 2025-08-28 14:42 | disposition home or self-care (01) ==
PROVIDERS: Emergency Provider Emergency Medicine; PCP Nurse Practitioner
DX: B34.9 Viral infection, unspecified (principal); M51.369 Other intervertebral disc degeneration, lumbar region without mention of lumbar back pain or lower extremity pain
CPT/HCPCS: 87420; 87804; 87811; 87880; 96372; 99284; J1885